=== PATIENT | male | born 1950 | race Caucasian/White ===

== ENCOUNTER 2023-07-06 18:59 | Inpatient (IN) | payer MEDICARE, OTHER ==
[~2023-07-06] VITALS: Ht 170.2 cm; Wt 79.8 kg
[2023-07-06] MEDS ORDERED: LIDOCAINE 2% (GLYDO= UROJET) 10 ML JELLY MM ONE (19:18)
[2023-07-06 19:39] LABS: *BILIRUBIN,URIN NEGATIVE (NEGATIVE); *CLARITY,URINE CLEAR (CLEAR); *COLOR,URINE YELLOW (YELLOW); *KETONES,URINE NEGATIVE (NEGATIVE); *PROTEIN,URINE 1+ (NEGATIVE); *UROBILINOGEN,URINE 0.2 E.U./dl (NORMAL); LEUKOCYTE ESTERASE ,URINE 2+ (NEGATIVE); NITRITE, URINE NEGATIVE (NEGATIVE); PH,URINE 5.5 (5.0-8.0); UGLUCOSE NEGATIVE (NEGATIVE)
[2023-07-06 19:40] LABS: *BLOOD, URINE NEGATIVE (NEGATIVE); RBC,URINE 0-3 /HPF (0-3)
[2023-07-06] MEDS: IV NORMAL SALINE 1000 ML BAG IV ONE (19:52)
[2023-07-06] MEDS: LIDOCAINE 2% (GLYDO= UROJET) 10 ML JELLY MM ONE (19:53)
[2023-07-06] MEDS ORDERED: PANT40TA49 PO (19:58)
[2023-07-06] MEDS ORDERED: SITA50TA PO (19:58)
[2023-07-06] MEDS ORDERED: SUCR1TAB PO (19:58)
[2023-07-06] MEDS ORDERED: ATOR10TA PO (19:58)
[2023-07-06] MEDS ORDERED: HYDR-894 PO (19:58)
[2023-07-06] MEDS ORDERED: FURO40TA5 PO (19:58)
[2023-07-06] MEDS ORDERED: ESCI5TAB PO (19:58)
[2023-07-06 20:11] LABS: BASOPHILS # (AUTO) 0.1 K/UL (0.0-0.2); CALCIUM 8.6 mg/dL (8.5-10.1); CARBON DIOXIDE 25 mmol/L (21-32); CHLORIDE 112 mmol/L (98-107); CREATININE 1.8 mg/dL (0.6-1.3); DIFFERENTIAL COMMENT 1; EOSINOPHILS # (AUTO) 0.1 K/uL (0.0-0.7); EOSINOPHILS % (AUTO) 0.4 % (0.0-7.0); GLUCOSE 143 mg/dL (74-106); HEMATOCRIT 28.2 % (36.7-47.1); LYMPHOCYTES # (AUTO) 1.2 K/uL (0.8-4.8); LYMPHOCYTES % (AUTO) 9.3 % (20.5-51.5); MEAN CORPUSCULAR HGB CONC 32 g/dL (32.5-36.3); MEAN CORPUSCULAR VOLUME 84.3 fL (73.0-96.2); MONOCYTES # (AUTO) 0.4 K/uL (0.1-1.30); MONOCYTES % (AUTO) 3.3 % (0.0-11.0); NEUTROPHILS # (AUTO) 11.3 K/uL (1.8-8.9); PLATELET COUNT (AUTO) 371 K/uL (152-348); POTASSIUM 3.6 mmol/L (3.5-5.1); RED BLOOD CELL COUNT(AUTO) 3.34 MIL/uL (4.06-5.63); RED CELL DISTRIBUTION WIDTH 17.7 % (12.1-16.2); SODIUM SERUM 146 mmol/L (136-145); UREA NITROGEN, BLOOD 31 mg/dL (7-18); WHITE BLOOD COUNT (AUTO) 13.2 K/uL (3.6-10.2)
[2023-07-06 20:12] LABS: AMMONIA < 10 umol/L (11-32)
[2023-07-06 20:16] LABS: ETHANOL < 3 MG/DL (0-10)
[2023-07-06 20:18] LABS: ALANINE AMINOTRANSFERASE 25 U/L (16-63); ALKALINE PHOSPHATASE 106 U/L (50-136); ASPARTATE AMINOTRANSFERASE 22 U/L (15-37); BILIRUBIN,DIRECT 0.1 mg/dL (0.0-0.2); BILIRUBIN,TOTAL 0.4 mg/dL (0.2-1.0); LIPASE 25 U/L (16-77); TOTAL PROTEIN, SERUM 6.6 g/dL (6.4-8.2)
[2023-07-06 20:19] LABS: ALBUMIN 1.5 g/dL (3.4-5.0)
[2023-07-06 20:20] LABS: ACETAMINOPHEN < 2.0 ug/mL (10-30)
[2023-07-06 20:36] LABS: THYROID STIMULATING HORMONE 16.898 mIU/mL (0.358-3.740)
[2023-07-06] MEDS ORDERED: ENOXAPARIN SODIUM 80 MG/0.8 ML DISP.SYRIN SQ ONE (21:05)
[2023-07-06] MEDS ORDERED: CEFTRIAXONE /D5W 50ML IVPB **ER PYXIS IV ONE (21:05)
[2023-07-06] MEDS ORDERED: levoFLOXacin 750MG/D5W 150 ML IV ONE (21:05)
[2023-07-06] MEDS ORDERED: ASPIRIN 81 MG TAB.CHEW ONE (21:05)
[2023-07-06] MEDS: ASPIRIN 81 MG TAB.CHEW PO ONE (21:18)
[2023-07-06] MEDS: CEFTRIAXONE 1 G in IV DEXTROSE 5% 50 ML IV ONE (21:18)
[2023-07-06] MEDS: ENOXAPARIN SODIUM 80 MG/0.8 ML DISP.SYRIN SQ ONE (21:19)
[2023-07-06] MEDS ORDERED: NITROGLYCERIN OINT 1 GM PACKET TP ONE (21:20)
[2023-07-06] MEDS: NITROGLYCERIN OINT 1 GM PACKET TP ONE (21:22)
[2023-07-06] MEDS: levoFLOXacin 750 MG/D5W 150 ML PIGGYBACK IV ONE (21:40)
[2023-07-06] MEDS ORDERED: METOPROLOL TARTRATE 5 MG/5 ML VIAL IVP ONE (21:42)
[2023-07-06] MEDS: METOPROLOL TARTRATE 5 MG/5 ML VIAL IVP ONE (22:07)
[2023-07-06] MEDS ORDERED: HYDROMORPHONE 1 MG/1 ML DISP.SYRIN ONE (23:50)
[2023-07-06] MEDS: HYDROMORPHONE 1 MG/1 ML DISP.SYRIN IV ONE (23:55)
[2023-07-07] MEDS ORDERED: MAGNESIUM HYDROXIDE 30 ML LIQUID UDC PO PRN (03:45)
[2023-07-07 05:58] LABS: BASOPHILS % (AUTO) 0.3 % (0.0-2.0); EOSINOPHILS % (AUTO) 0.3 % (0.0-7.0); HEMATOCRIT 25.1 % (36.7-47.1); HEMOGLOBIN 8.6 g/dL (12.5-16.3); LYMPHOCYTES # (AUTO) 1.3 K/uL (0.8-4.8); MEAN CORPUSCULAR HEMOGLOBIN 28.7 uug (23.8-33.4); MEAN CORPUSCULAR HGB CONC 34 g/dL (32.5-36.3); MEAN CORPUSCULAR VOLUME 84.2 fL (73.0-96.2); MONOCYTES # (AUTO) 0.5 K/uL (0.1-1.30); MONOCYTES % (AUTO) 4.4 % (0.0-11.0); NEUTROPHILS # (AUTO) 9.6 K/uL (1.8-8.9); PLATELET COUNT (AUTO) 276 K/uL (152-348); RED BLOOD CELL COUNT(AUTO) 2.98 MIL/uL (4.06-5.63); RED CELL DISTRIBUTION WIDTH 17.7 % (12.1-16.2); WHITE BLOOD COUNT (AUTO) 11.5 K/uL (3.6-10.2)
[2023-07-07] MEDS: SUCRALFATE 1 G TABLET PO SCH (06:00)
[2023-07-07 06:35] LABS: DIFFERENTIAL COMMENT 1
[2023-07-07 06:38] LABS: THYROID STIMULATING HORMONE 14.967 mIU/mL (0.358-3.740)
[2023-07-07 06:45] LABS: ALANINE AMINOTRANSFERASE 12 U/L (16-63); ALKALINE PHOSPHATASE 85 U/L (50-136); ASPARTATE AMINOTRANSFERASE 19 U/L (15-37); BILIRUBIN,TOTAL 0.3 mg/dL (0.2-1.0); CALCIUM 8.1 mg/dL (8.5-10.1); CARBON DIOXIDE 26 mmol/L (21-32); CHLORIDE 114 mmol/L (98-107); CHOLESTEROL 126 mg/dL (<200); CREATININE 1.7 mg/dL (0.6-1.3); GLUCOSE 123 mg/dL (74-106); HDL CHOLESTEROL 45 mg/dL (40-60); MAGNESIUM 1.7 mg/dL (1.8-2.4); PHOSPHOROUS 2.6 mg/dL (2.5-4.9); POTASSIUM 3.3 mmol/L (3.5-5.1); SODIUM SERUM 146 mmol/L (136-145); TOTAL PROTEIN, SERUM 5.4 g/dL (6.4-8.2); TRIGLYCERIDES 81 MG/DL (30-150); UREA NITROGEN, BLOOD 29 mg/dL (7-18)
[2023-07-07 06:46] LABS: ALBUMIN 1.2 g/dL (3.4-5.0)
[2023-07-07 06:48] LABS: IRON, SERUM 15 ug/dL (50-175)
[2023-07-07] MEDS ORDERED: HYDROMORPHONE 1 MG/1 ML DISP.SYRIN ONE (06:54)
[2023-07-07] MEDS: HYDROMORPHONE 1 MG/1 ML DISP.SYRIN IV STA (06:59)
[2023-07-07] MEDS: ALBUMIN HUMAN 25% 100 ML IV SCH (07:44)
[2023-07-07 07:48] LABS: NT-PRO BNP > 70000 pg/mL (0-125)
[2023-07-07] MEDS ORDERED: ALBUMIN HUMAN 25% 100 ML ONE (07:56)
[2023-07-07] MEDS ORDERED: FUROSEMIDE 40 MG/4 ML VIAL ONE (08:30)
[2023-07-07] MEDS ORDERED: PANTOPRAZOLE SODIUM 40 MG VIAL ONE (08:30)
[2023-07-07] MEDS ORDERED: ESCITALOPRAM OXALATE 10 MG TABLET ONE (08:30)
[2023-07-07] MEDS: FUROSEMIDE 40 MG/4 ML VIAL IV SCH (08:48)
[2023-07-07] MEDS: PANTOPRAZOLE SODIUM 40 MG VIAL IV SCH (08:49)
[2023-07-07] MEDS: ESCITALOPRAM OXALATE 10 MG TABLET PO SCH (08:49)
[2023-07-07] MEDS: VANCOMYCIN IV 1,250 MG in IV DEXTROSE 5% 250 ML IV SCH (08:55)
[2023-07-07] MEDS ORDERED: hydrALAZINE HCL 25 MG TABLET PO SCH (09:00)
[2023-07-07] MEDS ORDERED: POTASSIUM CHLORIDE 10 MEQ TAB.PRT.SR ONE (11:37)
[2023-07-07] MEDS ORDERED: MAGNESIUM OXIDE 400 MG TABLET ONE (11:37)
[2023-07-07] MEDS: MAGNESIUM OXIDE 400 MG TABLET PO ONE (11:40)
[2023-07-07] MEDS: POTASSIUM CHLORIDE 10 MEQ TAB.PRT.SR PO ONE (11:40)
[2023-07-07 13:00] VITALS: BP 126/79; TEMP 97.8; O2SAT 98
[2023-07-07 14:00] VITALS: BP 124/69; O2SAT 100
[2023-07-07] MEDS: ACETAMINOPHEN 325 MG TABLET PO PRN (14:17)
[2023-07-07] MEDS: MORPHINE SULFATE 2 MG/1 ML DISP.SYRIN IV PRN (17:05)
[2023-07-07 17:47] VITALS: O2SAT 98
[2023-07-07 18:00] VITALS: BP 124/69; O2SAT 100
[2023-07-07 19:30] VITALS: BP 130/87; TEMP 99.8; O2SAT 96
[2023-07-07] MEDS: ATORVASTATIN 20 MG TABLET PO SCH (21:18)
[2023-07-07 21:29] VITALS: O2SAT 98
[2023-07-08 00:05] VITALS: BP 131/85; TEMP 100.2; O2SAT 94
[2023-07-08] MEDS ORDERED: CEFTRIAXONE /D5W 50ML IVPB **ER PYXIS IV ONE (00:11)
[2023-07-08] MEDS: CEFTRIAXONE 1 G in IV DEXTROSE 5% 50 ML IV SCH (00:17)
[2023-07-08] MEDS: ZOLPIDEM 5 MG TABLET PO PRN (01:24)
[2023-07-08 04:00] VITALS: BP 128/73; TEMP 98.9; O2SAT 91
[2023-07-08] MEDS: LEVOTHYROXINE SODIUM 25 MCG TABLET PO SCH (06:20)
[2023-07-08 08:02] LABS: CALCIUM 8.6 mg/dL (8.5-10.1); CARBON DIOXIDE 24 mmol/L (21-32); CHLORIDE 109 mmol/L (98-107); CREATININE 1.8 mg/dL (0.6-1.3); GLUCOSE 118 mg/dL (74-106); LACTATE DEHYDROGENASE 323 U/L (85-227); MAGNESIUM 1.6 mg/dL (1.8-2.4); POTASSIUM 3.3 mmol/L (3.5-5.1); SODIUM SERUM 144 mmol/L (136-145); UREA NITROGEN, BLOOD 26 mg/dL (7-18)
[2023-07-08 08:04] LABS: BASOPHILS % (AUTO) 0.2 % (0.0-2.0); DIFFERENTIAL COMMENT 0; EOSINOPHILS % (AUTO) 0.1 % (0.0-7.0); HEMATOCRIT 22.4 % (36.7-47.1); LYMPHOCYTES # (AUTO) 1.2 K/uL (0.8-4.8); LYMPHOCYTES % (AUTO) 9.5 % (20.5-51.5); MEAN CORPUSCULAR HEMOGLOBIN 27.3 uug (23.8-33.4); MEAN CORPUSCULAR HGB CONC 33 g/dL (32.5-36.3); MEAN CORPUSCULAR VOLUME 82.9 fL (73.0-96.2); MONOCYTES # (AUTO) 0.5 K/uL (0.1-1.30); MONOCYTES % (AUTO) 3.8 % (0.0-11.0); NEUTROPHILS # (AUTO) 11.3 K/uL (1.8-8.9); NEUTROPHILS % (AUTO) 86.4 % (38.5-71.5); PLATELET COUNT (AUTO) 263 K/uL (152-348); RED CELL DISTRIBUTION WIDTH 17.2 % (12.1-16.2); WHITE BLOOD COUNT (AUTO) 13.1 K/uL (3.6-10.2)
[2023-07-08 08:08] LABS: HEMOGLOBIN 7.4 g/dL (12.5-16.3)
[2023-07-08 08:19] LABS: ABG BASE EXCESS -2.6 mmol/L (-2.0-2.0); ABG HCO3 21.1 mmol/L (22.0-26.0); ABG PCO2 32.1 mmHg (35.0-48.0); ABG PH 7.436 (7.340-7.440); ABG PO2 61.7 mmHg (75.0-100.0); ABG SITE LEFT RADIAL; ABG TOTAL HEMOGLOBIN 8.3 G/dL (14.0-18.0); AaDO2 92.7 mmHg; COHb 0.3 % (0.0-3.9); MetHb 0.2 % (0.0-1.5); O2Hb 91.7 % (94.0-97.0)
[2023-07-08] MEDS: MAGNESIUM SULFATE/D5W 100 ML IV SCH (09:04)
[2023-07-08] MEDS: POTASSIUM CHLORIDE 50 ML IV SCH (09:04)
[2023-07-08 10:35] LABS: HIV-1 p24 ANTIGEN REACTIVE (NONREACTIVE); HIV-1/2 ANTIBODY NON REACTIVE (NONREACTIVE)
[2023-07-08] MEDS: MEDIHONEY= THERAHONEY 1.5 OZ TUBE TOP SCH (10:45)
[2023-07-08] MEDS: SODIUM HYPOCHLORITE 0.125% (QUARTER STRENGTH) 473 ML BOTTLE TP SCH (10:45)
[2023-07-08 11:45] VITALS: BP 145/89; TEMP 98.2; O2SAT 93
[2023-07-08 14:32] LABS: HEMATOCRIT 22.4 % (36.7-47.1)
[2023-07-08 14:37] LABS: HEMOGLOBIN 7.2 g/dL (12.5-16.3)
[2023-07-08 16:00] VITALS: BP 104/67; TEMP 98.3; O2SAT 83; O2SAT 85
[2023-07-08 16:24] VITALS: O2SAT 90
[2023-07-08 16:36] LABS: ABG BASE EXCESS -7.2 mmol/L (-2.0-2.0); ABG PCO2 56.5 mmHg (35.0-48.0); ABG PH 7.189 (7.340-7.440); ABG PO2 73.6 mmHg (75.0-100.0); ABG SITE RIGHT RADIAL; ABG TOTAL HEMOGLOBIN 9.7 G/dL (14.0-18.0); AaDO2 90.9 mmHg; COHb 0.3 % (0.0-3.9); MetHb 0.1 % (0.0-1.5); O2Hb 90.5 % (94.0-97.0)
[2023-07-08] MEDS ORDERED: SUCCINYLCHOLINE CHLORIDE 200 MG/10 ML VIAL ONE (18:00)
[2023-07-08] MEDS: ETOMIDATE 20 MG/10 ML VIAL IV ONE (18:05)
[2023-07-08] MEDS: SUCCINYLCHOLINE CHLORIDE 200 MG/10 ML VIAL IV ONE (18:06)
[2023-07-08] MEDS ORDERED: PROPOFOL 100 ML ONE (19:40)
[2023-07-08] MEDS: PROPOFOL 100 ML IV PRN (19:59)
[2023-07-08] MEDS ORDERED: FUROSEMIDE 40 MG/4 ML VIAL ONE (20:50)
[2023-07-08] MEDS ORDERED: PANTOPRAZOLE SODIUM 40 MG VIAL ONE (20:50)
[2023-07-08] MEDS ORDERED: ATORVASTATIN 20 MG TABLET ONE (20:51)
[2023-07-08 21:51] LABS: ABG BASE EXCESS -2.8 mmol/L (-2.0-2.0); ABG HCO3 21.7 mmol/L (22.0-26.0); ABG PCO2 36.2 mmHg (35.0-48.0); ABG PH 7.396 (7.340-7.440); ABG PO2 137.2 mmHg (75.0-100.0); ABG SITE LEFT RADIAL; ABG TOTAL HEMOGLOBIN 7.1 G/dL (14.0-18.0); AaDO2 98.7 mmHg; COHb 0.3 % (0.0-3.9); MetHb 0.5 % (0.0-1.5); VT, ABG 500 mL
[2023-07-09 01:59] LABS: HEMATOCRIT 24.3 % (36.7-47.1); HEMOGLOBIN 7.7 g/dL (12.5-16.3)
[2023-07-09] MEDS ORDERED: PROPOFOL 100 ML ONE ×3 (05:08→19:48)
[2023-07-09 05:15] LABS: BASOPHILS % (AUTO) 0.1 % (0.0-2.0); EOSINOPHILS % (AUTO) 0.1 % (0.0-7.0); HEMATOCRIT 23.1 % (36.7-47.1); HEMOGLOBIN 7.5 g/dL (12.5-16.3); LYMPHOCYTES # (AUTO) 1.2 K/uL (0.8-4.8); LYMPHOCYTES % (AUTO) 6.8 % (20.5-51.5); MEAN CORPUSCULAR HGB CONC 33 g/dL (32.5-36.3); MONOCYTES # (AUTO) 0.4 K/uL (0.1-1.30); MONOCYTES % (AUTO) 2.3 % (0.0-11.0); NEUTROPHILS # (AUTO) 15.6 K/uL (1.8-8.9); NEUTROPHILS % (AUTO) 90.7 % (38.5-71.5); PLATELET COUNT (AUTO) 240 K/uL (152-348); RED BLOOD CELL COUNT(AUTO) 2.78 MIL/uL (4.06-5.63); RED CELL DISTRIBUTION WIDTH 17.3 % (12.1-16.2); WHITE BLOOD COUNT (AUTO) 17.2 K/uL (3.6-10.2)
[2023-07-09 05:30] LABS: CALCIUM 7.9 mg/dL (8.5-10.1); CARBON DIOXIDE 26 mmol/L (21-32); CHLORIDE 111 mmol/L (98-107); GLUCOSE 107 mg/dL (74-106); POTASSIUM 3.3 mmol/L (3.5-5.1); SODIUM SERUM 145 mmol/L (136-145); UREA NITROGEN, BLOOD 31 mg/dL (7-18)
[2023-07-09 05:32] LABS: PHOSPHOROUS 3.6 mg/dL (2.5-4.9)
[2023-07-09 05:40] LABS: DIFFERENTIAL COMMENT 1
[2023-07-09] MEDS ORDERED: SUCRALFATE 1 G/10 ML LIQUID UDC ONE (06:08)
[2023-07-09] MEDS ORDERED: LEVOTHYROXINE SODIUM 25 MCG TABLET ONE (07:51)
[2023-07-09] MEDS ORDERED: ESCITALOPRAM OXALATE 10 MG TABLET ONE (09:26)
[2023-07-09] MEDS ORDERED: PANTOPRAZOLE SODIUM 40 MG VIAL ONE ×2 (09:26→23:00)
[2023-07-09] MEDS ORDERED: FUROSEMIDE 40 MG/4 ML VIAL ONE ×2 (09:26→23:00)
[2023-07-09] MEDS: MEROPENEM 1 G in IV NORMAL SALINE 100 ML IV SCH (10:15)
[2023-07-09 14:29] LABS: HEMATOCRIT 21.6 % (36.7-47.1)
[2023-07-09] MEDS ORDERED: LIDOCAINE HCL 1% 20 ML VIAL ONE (14:52)
[2023-07-09] MEDS ORDERED: HEPARIN/NS 500 ML ONE (14:53)
[2023-07-09] MEDS ORDERED: IOHEXOL-240 MG , 50 ML VIAL IV ONE (14:56)
[2023-07-09] MEDS: SODIUM HYPOCHLORITE 0.125% (QUARTER STRENGTH) 473 ML BOTTLE TP SCH (15:15)
[2023-07-09] MEDS ORDERED: POTASSIUM CHLORIDE 50 ML ONE (16:10)
[2023-07-09] MEDS: POTASSIUM CHLORIDE 50 ML IV SCH (16:18)
[2023-07-09] MEDS ORDERED: MORPHINE SULFATE 2 MG/1 ML DISP.SYRIN ONE (16:19)
[2023-07-09 20:00] VITALS: BP 98/62; TEMP 98.3
[2023-07-09 21:00] VITALS: BP 112/64
[2023-07-09 22:00] VITALS: BP 106/59
[2023-07-09 23:00] VITALS: BP 103/58
[2023-07-09] MEDS ORDERED: ATORVASTATIN 20 MG TABLET ONE (23:00)
[2023-07-10] VITALS (25 sets, daily range): BP systolic 103–128; BP diastolic 55–73; TEMP 97.1–98.3; O2SAT 96–100
[2023-07-10 02:11] LABS: HEMATOCRIT 24.1 % (36.7-47.1)
[2023-07-10] MEDS ORDERED: PROPOFOL 100 ML ONE ×2 (04:04→13:02)
[2023-07-10 05:26] LABS: BASOPHILS # (AUTO) 0.1 K/UL (0.0-0.2); BASOPHILS % (AUTO) 0.5 % (0.0-2.0); EOSINOPHILS # (AUTO) 0.1 K/uL (0.0-0.7); EOSINOPHILS % (AUTO) 0.7 % (0.0-7.0); HEMATOCRIT 24.8 % (36.7-47.1); HEMOGLOBIN 8.3 g/dL (12.5-16.3); LYMPHOCYTES % (AUTO) 8.8 % (20.5-51.5); MEAN CORPUSCULAR HEMOGLOBIN 27.6 uug (23.8-33.4); MEAN CORPUSCULAR HGB CONC 33 g/dL (32.5-36.3); MEAN CORPUSCULAR VOLUME 82.6 fL (73.0-96.2); MONOCYTES # (AUTO) 0.4 K/uL (0.1-1.30); MONOCYTES % (AUTO) 3.7 % (0.0-11.0); NEUTROPHILS # (AUTO) 10.1 K/uL (1.8-8.9); NEUTROPHILS % (AUTO) 86.3 % (38.5-71.5); PLATELET COUNT (AUTO) 242 K/uL (152-348); RED CELL DISTRIBUTION WIDTH 17.4 % (12.1-16.2); WHITE BLOOD COUNT (AUTO) 11.7 K/uL (3.6-10.2)
[2023-07-10 06:04] LABS: CARBON DIOXIDE 25 mmol/L (21-32); CHLORIDE 110 mmol/L (98-107); GLUCOSE 79 mg/dL (74-106); SODIUM SERUM 145 mmol/L (136-145); UREA NITROGEN, BLOOD 31 mg/dL (7-18)
[2023-07-10 06:10] LABS: MAGNESIUM 1.9 mg/dL (1.8-2.4); PHOSPHOROUS 3.1 mg/dL (2.5-4.9)
[2023-07-10] MEDS ORDERED: SUCRALFATE 1 G/10 ML LIQUID UDC ONE (06:14)
[2023-07-10] MEDS ORDERED: LEVOTHYROXINE SODIUM 25 MCG TABLET ONE (06:15)
[2023-07-10 06:20] LABS: POTASSIUM 2.8 mmol/L (3.5-5.1)
[2023-07-10 06:24] LABS: DIFFERENTIAL COMMENT 1
[2023-07-10 06:25] LABS: CALCIUM 7.9 mg/dL (8.5-10.1)
[2023-07-10 06:35] LABS: ABG BASE EXCESS -0.6 mmol/L (-2.0-2.0); ABG HCO3 22.6 mmol/L (22.0-26.0); ABG PCO2 31.9 mmHg (35.0-48.0); ABG PH 7.469 (7.340-7.440); ABG PO2 151.2 mmHg (75.0-100.0); ABG SITE LEFT BRACHIAL; ABG TOTAL HEMOGLOBIN 9.1 G/dL (14.0-18.0); AaDO2 99.1 mmHg; COHb 0.3 % (0.0-3.9); MetHb 0.4 % (0.0-1.5); O2Hb 98.2 % (94.0-97.0); VT, ABG 500 mL
[2023-07-10] MEDS ORDERED: POTASSIUM CHLORIDE 50 ML IV SCH (08:30)
[2023-07-10] MEDS: POTASSIUM CHLORIDE 50 ML IV SCH ×2 (09:45→12:15)
[2023-07-10 11:28] LABS: CARBON DIOXIDE 25 mmol/L (21-32); CHLORIDE 110 mmol/L (98-107); CREATININE 1.9 mg/dL (0.6-1.3); GLUCOSE 78 mg/dL (74-106); MAGNESIUM 1.9 mg/dL (1.8-2.4); SODIUM SERUM 146 mmol/L (136-145); UREA NITROGEN, BLOOD 33 mg/dL (7-18); VANCOMYCIN,RANDOM 26.8 ug/mL (20.0-30.0)
[2023-07-10 11:37] LABS: BASOPHILS % (AUTO) 0.1 % (0.0-2.0); DIFFERENTIAL COMMENT 0; EOSINOPHILS # (AUTO) 0.1 K/uL (0.0-0.7); EOSINOPHILS % (AUTO) 0.6 % (0.0-7.0); HEMATOCRIT 26.6 % (36.7-47.1); HEMOGLOBIN 8.6 g/dL (12.5-16.3); LYMPHOCYTES # (AUTO) 1.1 K/uL (0.8-4.8); LYMPHOCYTES % (AUTO) 8.5 % (20.5-51.5); MEAN CORPUSCULAR HEMOGLOBIN 26.9 uug (23.8-33.4); MEAN CORPUSCULAR HGB CONC 32 g/dL (32.5-36.3); MEAN CORPUSCULAR VOLUME 83.4 fL (73.0-96.2); MONOCYTES # (AUTO) 0.4 K/uL (0.1-1.30); MONOCYTES % (AUTO) 2.8 % (0.0-11.0); NEUTROPHILS # (AUTO) 10.9 K/uL (1.8-8.9); PLATELET COUNT (AUTO) 261 K/uL (152-348); RED BLOOD CELL COUNT(AUTO) 3.19 MIL/uL (4.06-5.63); RED CELL DISTRIBUTION WIDTH 17.6 % (12.1-16.2); WHITE BLOOD COUNT (AUTO) 12.4 K/uL (3.6-10.2)
[2023-07-10 11:49] LABS: POTASSIUM 2.6 mmol/L (3.5-5.1)
[2023-07-10] MEDS ORDERED: VANCOMYCIN IV 1,250 MG in IV DEXTROSE 5% 250 ML IV SCH (12:00)
[2023-07-10] MEDS ORDERED: POTASSIUM CHLORIDE 400 ML ONE (12:33)
[2023-07-10] MEDS: IV NS 1000 ML 1,000 ML IV SCH (12:50)
[2023-07-10] MEDS: MAGNESIUM SULFATE/D5W 100 ML IV SCH (12:51)
[2023-07-10] MEDS ORDERED: MAGNESIUM SULFATE/D5W 100 ML ONE (12:51)
[2023-07-10] MEDS ORDERED: FUROSEMIDE 40 MG/4 ML VIAL ONE (13:33)
[2023-07-10] MEDS ORDERED: ESCITALOPRAM OXALATE 10 MG TABLET ONE (13:33)
[2023-07-10] MEDS ORDERED: PIPERACILLIN SODIUM/TAZOBACTAM 3.375 G in IV DEXTROSE 5% 50 ML IV SCH (14:30)
[2023-07-10] MEDS: PIPERACILLIN SODIUM/TAZOBACTAM 3.375 G in IV DEXTROSE 5% 100 ML IV SCH (17:00)
[2023-07-11] VITALS (65 sets, daily range): BP systolic 81–155; BP diastolic 49–89; TEMP 97–98.3; O2SAT 95–100
[2023-07-11 02:14] LABS: HEMATOCRIT 24.4 % (36.7-47.1)
[2023-07-11 05:23] LABS: BASOPHILS % (AUTO) 0.3 % (0.0-2.0); EOSINOPHILS # (AUTO) 0.1 K/uL (0.0-0.7); EOSINOPHILS % (AUTO) 0.4 % (0.0-7.0); HEMATOCRIT 26.8 % (36.7-47.1); HEMOGLOBIN 8.9 g/dL (12.5-16.3); LYMPHOCYTES # (AUTO) 1.2 K/uL (0.8-4.8); LYMPHOCYTES % (AUTO) 9.6 % (20.5-51.5); MEAN CORPUSCULAR HEMOGLOBIN 27.4 uug (23.8-33.4); MEAN CORPUSCULAR HGB CONC 33 g/dL (32.5-36.3); MEAN CORPUSCULAR VOLUME 82.7 fL (73.0-96.2); MONOCYTES # (AUTO) 0.3 K/uL (0.1-1.30); MONOCYTES % (AUTO) 2.8 % (0.0-11.0); NEUTROPHILS # (AUTO) 10.5 K/uL (1.8-8.9); NEUTROPHILS % (AUTO) 86.9 % (38.5-71.5); PLATELET COUNT (AUTO) 272 K/uL (152-348); RED BLOOD CELL COUNT(AUTO) 3.24 MIL/uL (4.06-5.63); RED CELL DISTRIBUTION WIDTH 17.3 % (12.1-16.2); WHITE BLOOD COUNT (AUTO) 12.1 K/uL (3.6-10.2)
[2023-07-11 05:30] LABS: DIFFERENTIAL COMMENT 1
[2023-07-11 05:46] LABS: ABG BASE EXCESS -1.6 mmol/L (-2.0-2.0); ABG HCO3 22.8 mmol/L (22.0-26.0); ABG PH 7.407 (7.340-7.440); ABG PO2 78.3 mmHg (75.0-100.0); ABG SITE RIGHT RADIAL; ABG TOTAL HEMOGLOBIN 9.5 G/dL (14.0-18.0); AaDO2 95.7 mmHg; COHb 0.3 % (0.0-3.9); MetHb 0.2 % (0.0-1.5); O2Hb 95.2 % (94.0-97.0); VT, ABG 500 mL
[2023-07-11 05:48] LABS: ALANINE AMINOTRANSFERASE 10 U/L (16-63); ALKALINE PHOSPHATASE 92 U/L (50-136); ASPARTATE AMINOTRANSFERASE 24 U/L (15-37); BILIRUBIN,TOTAL 0.6 mg/dL (0.2-1.0); CARBON DIOXIDE 24 mmol/L (21-32); CHLORIDE 111 mmol/L (98-107); GLUCOSE 91 mg/dL (74-106); PHOSPHOROUS 3.5 mg/dL (2.5-4.9); POTASSIUM 3.3 mmol/L (3.5-5.1); SODIUM SERUM 146 mmol/L (136-145); TOTAL PROTEIN, SERUM 5.7 g/dL (6.4-8.2); UREA NITROGEN, BLOOD 31 mg/dL (7-18)
[2023-07-11 06:01] LABS: ALBUMIN 1.5 g/dL (3.4-5.0)
[2023-07-11] MEDS: IV NORMAL SALINE 500 ML IV ONE (08:59)
[2023-07-11] MEDS: POTASSIUM CHLORIDE 50 ML IV SCH ×2 (10:43→14:00)
[2023-07-11] MEDS: NOREPINEPHRINE BITARTRATE 8 MG in IV NORMAL SALINE 242 ML IV PRN (10:48)
[2023-07-11] MEDS: VITAL AF 1.2 1,000 ML LIQUID GT PRN (13:00)
[2023-07-11 14:11] LABS: CALCIUM 8.1 mg/dL (8.5-10.1)
[2023-07-11 14:34] LABS: HEMATOCRIT 34.4 % (36.7-47.1); HEMOGLOBIN 10.5 g/dL (12.5-16.3)
[2023-07-11 20:03] LABS: *OCCULT BLOOD STOOL NEGATIVE (NEGATIVE)
[2023-07-12] VITALS (25 sets, daily range): BP systolic 87–115; BP diastolic 43–64; TEMP 97–98.3; O2SAT 93–99
[2023-07-12 05:10] LABS: BASOPHILS # (AUTO) 0.1 K/UL (0.0-0.2); BASOPHILS % (AUTO) 0.6 % (0.0-2.0); EOSINOPHILS # (AUTO) 0.1 K/uL (0.0-0.7); EOSINOPHILS % (AUTO) 0.8 % (0.0-7.0); HEMATOCRIT 27.6 % (36.7-47.1); HEMOGLOBIN 9.2 g/dL (12.5-16.3); LYMPHOCYTES # (AUTO) 1.3 K/uL (0.8-4.8); LYMPHOCYTES % (AUTO) 10.3 % (20.5-51.5); MEAN CORPUSCULAR HEMOGLOBIN 27.5 uug (23.8-33.4); MEAN CORPUSCULAR HGB CONC 33 g/dL (32.5-36.3); MEAN CORPUSCULAR VOLUME 82.8 fL (73.0-96.2); MONOCYTES # (AUTO) 0.5 K/uL (0.1-1.30); MONOCYTES % (AUTO) 4.2 % (0.0-11.0); NEUTROPHILS # (AUTO) 10.5 K/uL (1.8-8.9); NEUTROPHILS % (AUTO) 84.1 % (38.5-71.5); PLATELET COUNT (AUTO) 266 K/uL (152-348); RED BLOOD CELL COUNT(AUTO) 3.33 MIL/uL (4.06-5.63); RED CELL DISTRIBUTION WIDTH 17.5 % (12.1-16.2); WHITE BLOOD COUNT (AUTO) 12.5 K/uL (3.6-10.2)
[2023-07-12 05:18] LABS: DIFFERENTIAL COMMENT 1
[2023-07-12 05:37] LABS: ABG BASE EXCESS -1.1 mmol/L (-2.0-2.0); ABG HCO3 23.2 mmol/L (22.0-26.0); ABG PCO2 36.8 mmHg (35.0-48.0); ABG PH 7.417 (7.340-7.440); ABG PO2 74.1 mmHg (75.0-100.0); ABG SITE LEFT RADIAL; AaDO2 95.2 mmHg; COHb 0.3 % (0.0-3.9); MetHb 0.3 % (0.0-1.5); O2Hb 94.5 % (94.0-97.0); VT, ABG 500 mL
[2023-07-12 05:38] LABS: CALCIUM 7.9 mg/dL (8.5-10.1); CARBON DIOXIDE 24 mmol/L (21-32); CHLORIDE 112 mmol/L (98-107); CREATININE 2.1 mg/dL (0.6-1.3); GLUCOSE 177 mg/dL (74-106); PHOSPHOROUS 3.9 mg/dL (2.5-4.9); POTASSIUM 3.2 mmol/L (3.5-5.1); SODIUM SERUM 149 mmol/L (136-145); UREA NITROGEN, BLOOD 35 mg/dL (7-18)
[2023-07-12] MEDS: POTASSIUM CHLORIDE 50 ML IV SCH (12:26)
[2023-07-12 14:18] LABS: HEMATOCRIT 30.3 % (36.7-47.1); HEMOGLOBIN 9.6 g/dL (12.5-16.3)
[2023-07-13] VITALS (58 sets, daily range): BP systolic 99–130; BP diastolic 44–67; TEMP 97.7–99.2; O2SAT 95–100
[2023-07-13 02:12] LABS: HEMOGLOBIN 8.1 g/dL (12.5-16.3)
[2023-07-13 05:12] LABS: BASOPHILS # (AUTO) 0.1 K/UL (0.0-0.2); BASOPHILS % (AUTO) 0.4 % (0.0-2.0); EOSINOPHILS # (AUTO) 0.2 K/uL (0.0-0.7); EOSINOPHILS % (AUTO) 1.7 % (0.0-7.0); HEMATOCRIT 25.6 % (36.7-47.1); HEMOGLOBIN 8.3 g/dL (12.5-16.3); LYMPHOCYTES # (AUTO) 1.4 K/uL (0.8-4.8); LYMPHOCYTES % (AUTO) 10.2 % (20.5-51.5); MEAN CORPUSCULAR HEMOGLOBIN 26.8 uug (23.8-33.4); MEAN CORPUSCULAR HGB CONC 32 g/dL (32.5-36.3); MEAN CORPUSCULAR VOLUME 82.8 fL (73.0-96.2); MONOCYTES # (AUTO) 0.7 K/uL (0.1-1.30); MONOCYTES % (AUTO) 4.9 % (0.0-11.0); NEUTROPHILS # (AUTO) 11.4 K/uL (1.8-8.9); NEUTROPHILS % (AUTO) 82.8 % (38.5-71.5); PLATELET COUNT (AUTO) 272 K/uL (152-348); RED CELL DISTRIBUTION WIDTH 17.1 % (12.1-16.2); WHITE BLOOD COUNT (AUTO) 13.7 K/uL (3.6-10.2)
[2023-07-13 05:28] LABS: DIFFERENTIAL COMMENT 1
[2023-07-13 05:36] LABS: CALCIUM 7.7 mg/dL (8.5-10.1); CARBON DIOXIDE 26 mmol/L (21-32); CHLORIDE 111 mmol/L (98-107); CREATININE 1.9 mg/dL (0.6-1.3); GLUCOSE 252 mg/dL (74-106); PHOSPHOROUS 3.3 mg/dL (2.5-4.9); POTASSIUM 3.2 mmol/L (3.5-5.1); SODIUM SERUM 146 mmol/L (136-145); UREA NITROGEN, BLOOD 38 mg/dL (7-18)
[2023-07-13 09:50] LABS: ABG BASE EXCESS -0.1 mmol/L (-2.0-2.0); ABG HCO3 23.9 mmol/L (22.0-26.0); ABG PCO2 36.1 mmHg (35.0-48.0); ABG PH 7.438 (7.340-7.440); ABG PO2 85.4 mmHg (75.0-100.0); ABG SITE LEFT RADIAL; ABG TOTAL HEMOGLOBIN 9.1 G/dL (14.0-18.0); AaDO2 96.8 mmHg; COHb 0.3 % (0.0-3.9); MetHb 0.2 % (0.0-1.5); O2Hb 96.4 % (94.0-97.0); VT, ABG 500 mL
[2023-07-13] MEDS ORDERED: POTASSIUM CHLORIDE 50 ML IV SCH (12:00)
[2023-07-13] MEDS: POTASSIUM CHLORIDE 20 MEQ POWDER PACKET GT ONE (12:51)
[2023-07-13] MEDS: POTASSIUM CHLORIDE 50 ML IV SCH (12:52)
[2023-07-13 14:17] LABS: HEMATOCRIT 25.3 % (36.7-47.1); HEMOGLOBIN 8.4 g/dL (12.5-16.3)
[2023-07-14] VITALS (75 sets, daily range): BP systolic 96–135; BP diastolic 49–89; TEMP 97.8–100; O2SAT 94–99
[2023-07-14 02:07] LABS: HEMATOCRIT 25.3 % (36.7-47.1); HEMOGLOBIN 8.3 g/dL (12.5-16.3)
[2023-07-14 05:26] LABS: BASOPHILS # (AUTO) 0.1 K/UL (0.0-0.2); BASOPHILS % (AUTO) 0.5 % (0.0-2.0); EOSINOPHILS # (AUTO) 0.2 K/uL (0.0-0.7); EOSINOPHILS % (AUTO) 0.9 % (0.0-7.0); HEMATOCRIT 28.5 % (36.7-47.1); HEMOGLOBIN 9.3 g/dL (12.5-16.3); LYMPHOCYTES # (AUTO) 2.6 K/uL (0.8-4.8); LYMPHOCYTES % (AUTO) 15.5 % (20.5-51.5); MEAN CORPUSCULAR HEMOGLOBIN 26.9 uug (23.8-33.4); MEAN CORPUSCULAR HGB CONC 33 g/dL (32.5-36.3); MEAN CORPUSCULAR VOLUME 82.7 fL (73.0-96.2); MONOCYTES # (AUTO) 0.8 K/uL (0.1-1.30); NEUTROPHILS # (AUTO) 13.3 K/uL (1.8-8.9); NEUTROPHILS % (AUTO) 78.1 % (38.5-71.5); PLATELET COUNT (AUTO) 341 K/uL (152-348); RED BLOOD CELL COUNT(AUTO) 3.44 MIL/uL (4.06-5.63); RED CELL DISTRIBUTION WIDTH 17.9 % (12.1-16.2)
[2023-07-14 05:45] LABS: CALCIUM 8.1 mg/dL (8.5-10.1); CARBON DIOXIDE 25 mmol/L (21-32); CHLORIDE 112 mmol/L (98-107); GLUCOSE 237 mg/dL (74-106); POTASSIUM 3.2 mmol/L (3.5-5.1); SODIUM SERUM 148 mmol/L (136-145); UREA NITROGEN, BLOOD 41 mg/dL (7-18)
[2023-07-14 05:48] LABS: MAGNESIUM 2.1 mg/dL (1.8-2.4); PHOSPHOROUS 3.2 mg/dL (2.5-4.9)
[2023-07-14 07:07] LABS: ABG BASE EXCESS -4.3 mmol/L (-2.0-2.0); ABG PCO2 33.4 mmHg (35.0-48.0); ABG PH 7.396 (7.340-7.440); ABG PO2 81.2 mmHg (75.0-100.0); ABG SITE LEFT BRACHIAL; ABG TOTAL HEMOGLOBIN 7.9 G/dL (14.0-18.0); AaDO2 96.1 mmHg; COHb 0.3 % (0.0-3.9); MetHb 0.3 % (0.0-1.5); O2Hb 96.1 % (94.0-97.0)
[2023-07-14 07:38] LABS: DIFFERENTIAL COMMENT 1
[2023-07-14] MEDS: POTASSIUM CHLORIDE 20 MEQ POWDER PACKET GT ONE (08:27)
[2023-07-14] MEDS: POTASSIUM CHLORIDE 50 ML IV SCH (08:29)
[2023-07-14] MEDS: METOPROLOL TARTRATE 25 MG TABLET PO SCH (08:55)
[2023-07-14] MEDS: ONDANSETRON 4 MG/2 ML VIAL IV PRN (09:31)
[2023-07-14] MEDS ORDERED: VANCOMYCIN FOR PO/GT/NG USE PO SCH (12:00)
[2023-07-14] MEDS ORDERED: POTASSIUM CHLORIDE 50 ML IV SCH (12:00)
[2023-07-14] MEDS: VANCOMYCIN FOR PO/GT/NG USE PO SCH (12:33)
[2023-07-14] MEDS: MEDIHONEY= THERAHONEY 1.5 OZ TUBE TOP SCH (14:07)
[2023-07-15] VITALS (64 sets, daily range): BP systolic 92–144; BP diastolic 49–77; TEMP 97.7–99.5; O2SAT 92–100
[2023-07-15 05:17] LABS: BASOPHILS # (AUTO) 0.1 K/UL (0.0-0.2); BASOPHILS % (AUTO) 0.8 % (0.0-2.0); EOSINOPHILS # (AUTO) 0.2 K/uL (0.0-0.7); EOSINOPHILS % (AUTO) 1.5 % (0.0-7.0); HEMATOCRIT 23.2 % (36.7-47.1); HEMOGLOBIN 7.6 g/dL (12.5-16.3); LYMPHOCYTES # (AUTO) 1.8 K/uL (0.8-4.8); LYMPHOCYTES % (AUTO) 13.4 % (20.5-51.5); MEAN CORPUSCULAR HEMOGLOBIN 27.6 uug (23.8-33.4); MEAN CORPUSCULAR HGB CONC 33 g/dL (32.5-36.3); MEAN CORPUSCULAR VOLUME 84.7 fL (73.0-96.2); MONOCYTES # (AUTO) 0.6 K/uL (0.1-1.30); MONOCYTES % (AUTO) 4.8 % (0.0-11.0); NEUTROPHILS # (AUTO) 10.7 K/uL (1.8-8.9); NEUTROPHILS % (AUTO) 79.5 % (38.5-71.5); PLATELET COUNT (AUTO) 286 K/uL (152-348); RED BLOOD CELL COUNT(AUTO) 2.74 MIL/uL (4.06-5.63); RED CELL DISTRIBUTION WIDTH 18.3 % (12.1-16.2); WHITE BLOOD COUNT (AUTO) 13.5 K/uL (3.6-10.2)
[2023-07-15 05:35] LABS: CALCIUM 7.4 mg/dL (8.5-10.1); CARBON DIOXIDE 26 mmol/L (21-32); CHLORIDE 108 mmol/L (98-107); GLUCOSE 327 mg/dL (74-106); SODIUM SERUM 144 mmol/L (136-145); UREA NITROGEN, BLOOD 39 mg/dL (7-18)
[2023-07-15 05:37] LABS: PHOSPHOROUS 2.7 mg/dL (2.5-4.9)
[2023-07-15 05:48] LABS: DIFFERENTIAL COMMENT 1
[2023-07-15 06:23] LABS: ABG BASE EXCESS -1.4 mmol/L (-2.0-2.0); ABG HCO3 23.7 mmol/L (22.0-26.0); ABG PCO2 41.7 mmHg (35.0-48.0); ABG PH 7.373 (7.340-7.440); ABG PO2 77.8 mmHg (75.0-100.0); ABG SITE LEFT RADIAL; ABG TOTAL HEMOGLOBIN 10.8 G/dL (14.0-18.0); AaDO2 95.2 mmHg; COHb 0.1 % (0.0-3.9); CPAP,BG 8 cmH20; MetHb 0.1 % (0.0-1.5); O2Hb 95.6 % (94.0-97.0)
[2023-07-15] MEDS ORDERED: DC PROPOFOL ONCE EXTUBATED XX PRN (08:00)
[2023-07-15] MEDS: POTASSIUM CHLORIDE 50 ML IV SCH (09:37)
[2023-07-15] MEDS: FUROSEMIDE 40 MG/4 ML VIAL IV SCH (09:53)
[2023-07-15] MEDS: POTASSIUM CHLORIDE 20 MEQ POWDER PACKET GT ONE (10:24)
[2023-07-16] VITALS (28 sets, daily range): BP systolic 90–113; BP diastolic 49–77; TEMP 97.8; O2SAT 97–100
[2023-07-16] MEDS: LIDOCAINE 1%-EPI 1:200,000 MPF 30 ML VIAL IJ ONE (07:30)
[2023-07-16] MEDS: SILVER NITRATE APPLICATOR STICK EACH TP ONE (07:30)
[2023-07-16 16:19] LABS: BASOPHILS # (AUTO) 0.1 K/UL (0.0-0.2); DIFFERENTIAL COMMENT 0; EOSINOPHILS # (AUTO) 0.2 K/uL (0.0-0.7); EOSINOPHILS % (AUTO) 1.8 % (0.0-7.0); HEMATOCRIT 22.3 % (36.7-47.1); LYMPHOCYTES # (AUTO) 1.3 K/uL (0.8-4.8); LYMPHOCYTES % (AUTO) 11.3 % (20.5-51.5); MEAN CORPUSCULAR HEMOGLOBIN 27.5 uug (23.8-33.4); MEAN CORPUSCULAR HGB CONC 33 g/dL (32.5-36.3); MEAN CORPUSCULAR VOLUME 83.7 fL (73.0-96.2); MONOCYTES # (AUTO) 0.5 K/uL (0.1-1.30); NEUTROPHILS # (AUTO) 9.4 K/uL (1.8-8.9); NEUTROPHILS % (AUTO) 81.9 % (38.5-71.5); PLATELET COUNT (AUTO) 304 K/uL (152-348); RED BLOOD CELL COUNT(AUTO) 2.67 MIL/uL (4.06-5.63); RED CELL DISTRIBUTION WIDTH 17.8 % (12.1-16.2); WHITE BLOOD COUNT (AUTO) 11.5 K/uL (3.6-10.2)
[2023-07-16 16:20] LABS: CALCIUM 8.1 mg/dL (8.5-10.1); CARBON DIOXIDE 25 mmol/L (21-32); CHLORIDE 113 mmol/L (98-107); CREATININE 2.1 mg/dL (0.6-1.3); GLUCOSE 213 mg/dL (74-106); PHOSPHOROUS 3.2 mg/dL (2.5-4.9); POTASSIUM 3.6 mmol/L (3.5-5.1); SODIUM SERUM 148 mmol/L (136-145); UREA NITROGEN, BLOOD 43 mg/dL (7-18)
[2023-07-16 18:59] LABS: HEMOGLOBIN 7.3 g/dL (12.5-16.3)
[2023-07-16] MEDS: AMIODARONE HCL IV 150 MG in IV DEXTROSE 5% 100 ML IV ONE (19:28)
[2023-07-16] MEDS: AMIODARONE HCL IV 450 MG in IV DEXTROSE 5% 250 ML IV PRN (19:53)
[2023-07-17] VITALS (60 sets, daily range): BP systolic 103–133; BP diastolic 60–80; TEMP 97.4–98.4; O2SAT 95–100
[2023-07-17] MEDS: PIPERACILLIN SODIUM/TAZOBACTAM 3.375 G in IV DEXTROSE 5% 100 ML IV SCH ×2 (01:00→03:11)
[2023-07-17] MEDS: VANCOMYCIN FOR PO/GT/NG USE PO SCH (05:31)
[2023-07-17 05:46] LABS: BASOPHILS # (AUTO) 0.1 K/UL (0.0-0.2); BASOPHILS % (AUTO) 0.8 % (0.0-2.0); EOSINOPHILS # (AUTO) 0.1 K/uL (0.0-0.7); EOSINOPHILS % (AUTO) 1.6 % (0.0-7.0); HEMATOCRIT 25.6 % (36.7-47.1); HEMOGLOBIN 8.4 g/dL (12.5-16.3); LYMPHOCYTES # (AUTO) 1.1 K/uL (0.8-4.8); LYMPHOCYTES % (AUTO) 12.9 % (20.5-51.5); MEAN CORPUSCULAR HGB CONC 33 g/dL (32.5-36.3); MEAN CORPUSCULAR VOLUME 85.8 fL (73.0-96.2); MONOCYTES # (AUTO) 0.4 K/uL (0.1-1.30); MONOCYTES % (AUTO) 4.4 % (0.0-11.0); NEUTROPHILS # (AUTO) 6.6 K/uL (1.8-8.9); NEUTROPHILS % (AUTO) 80.3 % (38.5-71.5); PLATELET COUNT (AUTO) 316 K/uL (152-348); RED BLOOD CELL COUNT(AUTO) 2.99 MIL/uL (4.06-5.63); RED CELL DISTRIBUTION WIDTH 17.4 % (12.1-16.2); WHITE BLOOD COUNT (AUTO) 8.3 K/uL (3.6-10.2)
[2023-07-17 06:03] LABS: CARBON DIOXIDE 27 mmol/L (21-32); CHLORIDE 109 mmol/L (98-107); CREATININE 2.1 mg/dL (0.6-1.3); GLUCOSE 382 mg/dL (74-106); MAGNESIUM 1.8 mg/dL (1.8-2.4); PHOSPHOROUS 3.6 mg/dL (2.5-4.9); POTASSIUM 3.4 mmol/L (3.5-5.1); SODIUM SERUM 145 mmol/L (136-145); UREA NITROGEN, BLOOD 49 mg/dL (7-18)
[2023-07-17 08:42] LABS: DIFFERENTIAL COMMENT 1
[2023-07-17] MEDS: POTASSIUM CHLORIDE 50 ML IV SCH (08:45)
[2023-07-17] MEDS: METOLAZONE 2.5 MG TABLET PO ONE (08:47)
[2023-07-17] MEDS: ALBUMIN HUMAN 25% 100 ML IV SCH (08:50)
[2023-07-17] MEDS: AMIODARONE HCL 200 MG TABLET PO SCH (08:52)
[2023-07-17] MEDS: POTASSIUM CHLORIDE 20 MEQ POWDER PACKET GT ONE (10:51)
[2023-07-17] MEDS ORDERED: DEXTROSE 50% 50 ML DISP.SYRIN IV PRN (13:15)
[2023-07-17] MEDS: FUROSEMIDE 40 MG/4 ML VIAL IV SCH (13:51)
[2023-07-17] MEDS: BLOOD SUGAR DIAGNOSTIC 1 EACH STRIP VI SCH (17:23)
[2023-07-17] MEDS: INSULIN REGULAR, HUMAN 300 UNIT/3 ML VIAL SQ PRN (17:25)
[2023-07-17] MEDS: AMPICILLIN IV 2 G in IV NORMAL SALINE 100 ML IV SCH (21:57)
[2023-07-18] VITALS (36 sets, daily range): BP systolic 113–146; BP diastolic 64–88; TEMP 97.7–98.1; O2SAT 81–100
[2023-07-18] MEDS: IPRATROPIUM BROMIDE 0.5 MG/2.5 ML NEBU NEB PRN (03:56)
[2023-07-18] MEDS: ALBUTEROL SULFATE 1.25 MG/3 ML NEBU NEB PRN (03:56)
[2023-07-18 05:38] LABS: BASOPHILS # (AUTO) 0.1 K/UL (0.0-0.2); BASOPHILS % (AUTO) 0.7 % (0.0-2.0); EOSINOPHILS # (AUTO) 0.1 K/uL (0.0-0.7); EOSINOPHILS % (AUTO) 1.1 % (0.0-7.0); HEMATOCRIT 26.4 % (36.7-47.1); HEMOGLOBIN 8.8 g/dL (12.5-16.3); LYMPHOCYTES # (AUTO) 1.7 K/uL (0.8-4.8); LYMPHOCYTES % (AUTO) 17.6 % (20.5-51.5); MEAN CORPUSCULAR HEMOGLOBIN 27.8 uug (23.8-33.4); MEAN CORPUSCULAR HGB CONC 33 g/dL (32.5-36.3); MEAN CORPUSCULAR VOLUME 83.5 fL (73.0-96.2); MONOCYTES # (AUTO) 0.5 K/uL (0.1-1.30); MONOCYTES % (AUTO) 5.2 % (0.0-11.0); NEUTROPHILS # (AUTO) 7.4 K/uL (1.8-8.9); NEUTROPHILS % (AUTO) 75.4 % (38.5-71.5); PLATELET COUNT (AUTO) 359 K/uL (152-348); RED BLOOD CELL COUNT(AUTO) 3.16 MIL/uL (4.06-5.63); RED CELL DISTRIBUTION WIDTH 17.5 % (12.1-16.2); WHITE BLOOD COUNT (AUTO) 9.8 K/uL (3.6-10.2)
[2023-07-18 05:58] LABS: DIFFERENTIAL COMMENT 1
[2023-07-18 05:59] LABS: CARBON DIOXIDE 25 mmol/L (21-32); CHLORIDE 112 mmol/L (98-107); CREATININE 2.2 mg/dL (0.6-1.3); GLUCOSE 108 mg/dL (74-106); POTASSIUM 3.7 mmol/L (3.5-5.1); SODIUM SERUM 149 mmol/L (136-145); UREA NITROGEN, BLOOD 52 mg/dL (7-18)
[2023-07-18 06:05] LABS: ABG BASE EXCESS -1.3 mmol/L (-2.0-2.0); ABG HCO3 23.1 mmol/L (22.0-26.0); ABG PCO2 37.6 mmHg (35.0-48.0); ABG PH 7.407 (7.340-7.440); ABG PO2 57.9 mmHg (75.0-100.0); ABG SITE RIGHT BRACHIAL; ABG TOTAL HEMOGLOBIN 9.6 G/dL (14.0-18.0); AaDO2 90.4 mmHg; COHb 0.1 % (0.0-3.9); MetHb 0.3 % (0.0-1.5); O2Hb 90.1 % (94.0-97.0)
[2023-07-18 19:59] LABS: *BILIRUBIN,URIN NEGATIVE (NEGATIVE); *BLOOD, URINE 3+ (NEGATIVE); *CLARITY,URINE SLIGHTLY CLOUDY (CLEAR); *COLOR,URINE YELLOW (YELLOW); *KETONES,URINE NEGATIVE (NEGATIVE); *PROTEIN,URINE 1+ (NEGATIVE); *UROBILINOGEN,URINE 0.2 E.U./dl (NORMAL); LEUKOCYTE ESTERASE ,URINE TRACE (NEGATIVE); NITRITE, URINE NEGATIVE (NEGATIVE); UGLUCOSE NEGATIVE (NEGATIVE)
[2023-07-18 20:00] LABS: *CREATININE,URINE 21.4 mg/dL (30-125); *URINE TOTAL PROTEIN RANDOM 106.4 mg/dL (<150/24HR)
[2023-07-18 20:32] LABS: BACTERIA,URINE MODERATE /HPF (NONE SEEN); RBC,URINE 50-80 /HPF (0-3); SQUAMOUS EPITHELIAL CELL,UR MODERATE /HPF (NONE SEEN); YEAST,URINE MANY /HPF (NONE SEEN)
[2023-07-18] MEDS: FUROSEMIDE 40 MG/4 ML VIAL IV SCH (20:42)
[2023-07-19] VITALS (28 sets, daily range): BP systolic 113–138; BP diastolic 70–82; TEMP 97.4–98.7; O2SAT 91–99
[2023-07-19 05:19] LABS: BASOPHILS # (AUTO) 0.1 K/UL (0.0-0.2); EOSINOPHILS # (AUTO) 0.1 K/uL (0.0-0.7); EOSINOPHILS % (AUTO) 1.1 % (0.0-7.0); HEMATOCRIT 27.1 % (36.7-47.1); HEMOGLOBIN 8.7 g/dL (12.5-16.3); LYMPHOCYTES # (AUTO) 1.6 K/uL (0.8-4.8); LYMPHOCYTES % (AUTO) 15.9 % (20.5-51.5); MEAN CORPUSCULAR HEMOGLOBIN 27.5 uug (23.8-33.4); MEAN CORPUSCULAR HGB CONC 32 g/dL (32.5-36.3); MEAN CORPUSCULAR VOLUME 85.1 fL (73.0-96.2); MONOCYTES # (AUTO) 0.5 K/uL (0.1-1.30); MONOCYTES % (AUTO) 4.9 % (0.0-11.0); NEUTROPHILS # (AUTO) 7.9 K/uL (1.8-8.9); NEUTROPHILS % (AUTO) 77.1 % (38.5-71.5); PLATELET COUNT (AUTO) 385 K/uL (152-348); RED BLOOD CELL COUNT(AUTO) 3.18 MIL/uL (4.06-5.63); RED CELL DISTRIBUTION WIDTH 17.6 % (12.1-16.2); WHITE BLOOD COUNT (AUTO) 10.3 K/uL (3.6-10.2)
[2023-07-19 05:34] LABS: ABG BASE EXCESS -2.1 mmol/L (-2.0-2.0); ABG HCO3 22.7 mmol/L (22.0-26.0); ABG PCO2 38.8 mmHg (35.0-48.0); ABG PH 7.385 (7.340-7.440); ABG PO2 67.4 mmHg (75.0-100.0); ABG SITE LEFT RADIAL; ABG TOTAL HEMOGLOBIN 9.5 G/dL (14.0-18.0); AaDO2 93.3 mmHg; COHb 0.4 % (0.0-3.9); MetHb 0.2 % (0.0-1.5); O2Hb 93.3 % (94.0-97.0)
[2023-07-19 05:47] LABS: DIFFERENTIAL COMMENT 1
[2023-07-19 05:57] LABS: CALCIUM 9.4 mg/dL (8.5-10.1); CARBON DIOXIDE 24 mmol/L (21-32); CHLORIDE 115 mmol/L (98-107); CREATININE 2.6 mg/dL (0.6-1.3); GLUCOSE 112 mg/dL (74-106); POTASSIUM 3.3 mmol/L (3.5-5.1); SODIUM SERUM 153 mmol/L (136-145); UREA NITROGEN, BLOOD 60 mg/dL (7-18)
[2023-07-19 06:02] LABS: MAGNESIUM 2.1 mg/dL (1.8-2.4); PHOSPHOROUS 5.8 mg/dL (2.5-4.9)
[2023-07-19] MEDS: IV NORMAL SALINE 250 ML IV PRN (06:38)
[2023-07-19] MEDS: FUROSEMIDE 40 MG/4 ML VIAL IV SCH (08:10)
[2023-07-19] MEDS: IV D5W 1000ML 1,000 ML IV ONE (11:29)
[2023-07-19] MEDS: ARGININE/GLUTAMINE/CALCIUM BMB 1 EACH POWD.PACK PO SCH (11:52)
[2023-07-19] MEDS: POTASSIUM CHLORIDE 20 MEQ POWDER PACKET PO ONE (12:33)
[2023-07-20] VITALS (23 sets, daily range): BP systolic 113–147; BP diastolic 64–82; TEMP 97.6–98.4; O2SAT 90–100
[2023-07-20 05:16] LABS: BASOPHILS # (AUTO) 0.1 K/UL (0.0-0.2); BASOPHILS % (AUTO) 0.8 % (0.0-2.0); EOSINOPHILS # (AUTO) 0.2 K/uL (0.0-0.7); EOSINOPHILS % (AUTO) 1.6 % (0.0-7.0); HEMATOCRIT 25.1 % (36.7-47.1); HEMOGLOBIN 8.4 g/dL (12.5-16.3); LYMPHOCYTES # (AUTO) 1.7 K/uL (0.8-4.8); LYMPHOCYTES % (AUTO) 15.6 % (20.5-51.5); MEAN CORPUSCULAR HEMOGLOBIN 28.1 uug (23.8-33.4); MEAN CORPUSCULAR HGB CONC 33 g/dL (32.5-36.3); MONOCYTES # (AUTO) 0.5 K/uL (0.1-1.30); MONOCYTES % (AUTO) 4.7 % (0.0-11.0); NEUTROPHILS # (AUTO) 8.3 K/uL (1.8-8.9); NEUTROPHILS % (AUTO) 77.3 % (38.5-71.5); PLATELET COUNT (AUTO) 380 K/uL (152-348); RED BLOOD CELL COUNT(AUTO) 2.99 MIL/uL (4.06-5.63); RED CELL DISTRIBUTION WIDTH 17.9 % (12.1-16.2); WHITE BLOOD COUNT (AUTO) 10.7 K/uL (3.6-10.2)
[2023-07-20 05:19] LABS: DIFFERENTIAL COMMENT 1
[2023-07-20 05:32] LABS: CARBON DIOXIDE 26 mmol/L (21-32); CHLORIDE 115 mmol/L (98-107); CREATININE 2.9 mg/dL (0.6-1.3); GLUCOSE 110 mg/dL (74-106); POTASSIUM 3.3 mmol/L (3.5-5.1); SODIUM SERUM 153 mmol/L (136-145); UREA NITROGEN, BLOOD 65 mg/dL (7-18)
[2023-07-20] MEDS: AMIODARONE HCL 200 MG TABLET PO SCH (09:04)
[2023-07-20] MEDS: POTASSIUM CHLORIDE 20 MEQ POWDER PACKET GT ONE (09:04)
[2023-07-20] MEDS: IV D5W 1000ML 1,000 ML IV SCH (09:17)
[2023-07-21 04:05] VITALS: O2SAT 99
[2023-07-21 07:08] LABS: BASOPHILS # (AUTO) 0.1 K/UL (0.0-0.2); BASOPHILS % (AUTO) 0.6 % (0.0-2.0); EOSINOPHILS # (AUTO) 0.2 K/uL (0.0-0.7); HEMATOCRIT 29.3 % (36.7-47.1); HEMOGLOBIN 9.8 g/dL (12.5-16.3); LYMPHOCYTES # (AUTO) 1.8 K/uL (0.8-4.8); MEAN CORPUSCULAR HEMOGLOBIN 28.7 uug (23.8-33.4); MEAN CORPUSCULAR HGB CONC 34 g/dL (32.5-36.3); MEAN CORPUSCULAR VOLUME 85.5 fL (73.0-96.2); MONOCYTES # (AUTO) 0.6 K/uL (0.1-1.30); MONOCYTES % (AUTO) 5.1 % (0.0-11.0); NEUTROPHILS # (AUTO) 9.1 K/uL (1.8-8.9); NEUTROPHILS % (AUTO) 77.3 % (38.5-71.5); PLATELET COUNT (AUTO) 462 K/uL (152-348); RED BLOOD CELL COUNT(AUTO) 3.42 MIL/uL (4.06-5.63); RED CELL DISTRIBUTION WIDTH 18.4 % (12.1-16.2); WHITE BLOOD COUNT (AUTO) 11.8 K/uL (3.6-10.2)
[2023-07-21 07:26] LABS: DIFFERENTIAL COMMENT 1
[2023-07-21 08:00] VITALS: BP 104/49; TEMP 97.6; O2SAT 94
[2023-07-21 09:49] LABS: CALCIUM 8.8 mg/dL (8.5-10.1); CARBON DIOXIDE 21 mmol/L (21-32); CHLORIDE 109 mmol/L (98-107); CREATININE 3.3 mg/dL (0.6-1.3); GLUCOSE 142 mg/dL (74-106); PHOSPHOROUS 5.5 mg/dL (2.5-4.9); POTASSIUM 3.3 mmol/L (3.5-5.1); SODIUM SERUM 145 mmol/L (136-145); UREA NITROGEN, BLOOD 69 mg/dL (7-18)
[2023-07-21] MEDS: FUROSEMIDE 40 MG/4 ML VIAL IV SCH (09:51)
[2023-07-21 12:00] VITALS: BP 111/55; TEMP 97.8; O2SAT 93
[2023-07-21] MEDS ORDERED: SILVER NITRATE APPLICATOR STICK EACH TP PRN (13:29)
[2023-07-21] MEDS ORDERED: LIDOCAINE 1%-EPI 1:200,000 MPF 30 ML VIAL IJ PRN (13:30)
[2023-07-21 16:00] VITALS: BP 122/73; TEMP 97.4; O2SAT 92
[2023-07-21] MEDS: MORPHINE SULFATE 2 MG/1 ML DISP.SYRIN IV ONE (16:12)
[2023-07-21] MEDS: PANTOPRAZOLE ORAL SUSPENSION 40 MG SUSPDR.PKT GT SCH (17:31)
[2023-07-21 20:00] VITALS: BP 136/54; TEMP 98.2; O2SAT 98
[2023-07-21 21:58] VITALS: O2SAT 99
[2023-07-22 00:49] VITALS: BP 144/66; TEMP 98.2; O2SAT 98
[2023-07-22 06:32] VITALS: BP 109/79; TEMP 98.3; O2SAT 93
[2023-07-22 06:54] LABS: BASOPHILS % (AUTO) 0.5 % (0.0-2.0); EOSINOPHILS # (AUTO) 0.1 K/uL (0.0-0.7); EOSINOPHILS % (AUTO) 1.4 % (0.0-7.0); HEMATOCRIT 28.1 % (36.7-47.1); HEMOGLOBIN 9.4 g/dL (12.5-16.3); LYMPHOCYTES # (AUTO) 1.2 K/uL (0.8-4.8); LYMPHOCYTES % (AUTO) 13.4 % (20.5-51.5); MEAN CORPUSCULAR HEMOGLOBIN 28.2 uug (23.8-33.4); MEAN CORPUSCULAR HGB CONC 33 g/dL (32.5-36.3); MEAN CORPUSCULAR VOLUME 84.6 fL (73.0-96.2); MONOCYTES # (AUTO) 0.3 K/uL (0.1-1.30); NEUTROPHILS # (AUTO) 7.1 K/uL (1.8-8.9); NEUTROPHILS % (AUTO) 80.7 % (38.5-71.5); PLATELET COUNT (AUTO) 449 K/uL (152-348); RED BLOOD CELL COUNT(AUTO) 3.33 MIL/uL (4.06-5.63); RED CELL DISTRIBUTION WIDTH 18.5 % (12.1-16.2); WHITE BLOOD COUNT (AUTO) 8.8 K/uL (3.6-10.2)
[2023-07-22 06:55] LABS: CALCIUM 8.3 mg/dL (8.5-10.1); CARBON DIOXIDE 24 mmol/L (21-32); CHLORIDE 107 mmol/L (98-107); CREATININE 3.8 mg/dL (0.6-1.3); GLUCOSE 154 mg/dL (74-106); MAGNESIUM 1.9 mg/dL (1.8-2.4); PHOSPHOROUS 6.1 mg/dL (2.5-4.9); POTASSIUM 3.4 mmol/L (3.5-5.1); SODIUM SERUM 142 mmol/L (136-145); UREA NITROGEN, BLOOD 72 mg/dL (7-18)
[2023-07-22 07:05] LABS: DIFFERENTIAL COMMENT 1
[2023-07-22 08:00] VITALS: BP 130/75; TEMP 97.8; O2SAT 94
[2023-07-22] MEDS: POTASSIUM CHLORIDE 10 MEQ TAB.PRT.SR PO ONE (10:27)
[2023-07-22 12:03] VITALS: BP 110/63; TEMP 97.7; O2SAT 99
[2023-07-22 16:13] VITALS: BP 132/84; TEMP 97.5; O2SAT 98
[2023-07-22 20:10] VITALS: BP 120/65; TEMP 99; O2SAT 94
[2023-07-23] VITALS (7 sets, daily range): BP systolic 125–133; BP diastolic 61–86; TEMP 97.6–99; O2SAT 91–99
[2023-07-23 06:58] LABS: BASOPHILS # (AUTO) 0.1 K/UL (0.0-0.2); BASOPHILS % (AUTO) 0.7 % (0.0-2.0); EOSINOPHILS # (AUTO) 0.1 K/uL (0.0-0.7); HEMATOCRIT 26.3 % (36.7-47.1); HEMOGLOBIN 8.7 g/dL (12.5-16.3); LYMPHOCYTES # (AUTO) 1.3 K/uL (0.8-4.8); LYMPHOCYTES % (AUTO) 13.3 % (20.5-51.5); MEAN CORPUSCULAR HEMOGLOBIN 27.8 uug (23.8-33.4); MEAN CORPUSCULAR HGB CONC 33 g/dL (32.5-36.3); MEAN CORPUSCULAR VOLUME 84.2 fL (73.0-96.2); MONOCYTES # (AUTO) 0.5 K/uL (0.1-1.30); MONOCYTES % (AUTO) 4.6 % (0.0-11.0); NEUTROPHILS # (AUTO) 7.9 K/uL (1.8-8.9); NEUTROPHILS % (AUTO) 80.4 % (38.5-71.5); PLATELET COUNT (AUTO) 399 K/uL (152-348); RED BLOOD CELL COUNT(AUTO) 3.13 MIL/uL (4.06-5.63); RED CELL DISTRIBUTION WIDTH 18.5 % (12.1-16.2); WHITE BLOOD COUNT (AUTO) 9.8 K/uL (3.6-10.2)
[2023-07-23 07:06] LABS: DIFFERENTIAL COMMENT 1
[2023-07-23 07:11] LABS: CALCIUM 8.5 mg/dL (8.5-10.1); CARBON DIOXIDE 21 mmol/L (21-32); CHLORIDE 108 mmol/L (98-107); CREATININE 4.2 mg/dL (0.6-1.3); GLUCOSE 115 mg/dL (74-106); POTASSIUM 3.8 mmol/L (3.5-5.1); SODIUM SERUM 144 mmol/L (136-145); UREA NITROGEN, BLOOD 75 mg/dL (7-18)
[2023-07-23 09:52] LABS: PHOSPHOROUS 6.8 mg/dL (2.5-4.9)
[2023-07-23] MEDS: ALBUMIN HUMAN 25% 100 ML IV SCH (11:19)
[2023-07-23] MEDS: FUROSEMIDE 40 MG/4 ML VIAL IV SCH (11:20)
[2023-07-23] MEDS: MEDIHONEY= THERAHONEY 1.5 OZ TUBE TOP SCH (19:00)
[2023-07-24] VITALS (23 sets, daily range): BP systolic 102–133; BP diastolic 49–77; TEMP 97–98.1; O2SAT 98–100
[2023-07-24] MEDS ORDERED: NOREPINEPHRINE BITARTRATE 4 MG/4 ML VIAL IV ONE (00:36)
[2023-07-24 03:28] LABS: ABG BASE EXCESS -7.3 mmol/L (-2.0-2.0); ABG HCO3 17.8 mmol/L (22.0-26.0); ABG PCO2 34.2 mmHg (35.0-48.0); ABG PH 7.335 (7.340-7.440); ABG PO2 336.8 mmHg (75.0-100.0); ABG SITE LEFT BRACHIAL; ABG TOTAL HEMOGLOBIN 8.8 G/dL (14.0-18.0); AaDO2 99.7 mmHg; COHb 0.3 % (0.0-3.9); MetHb 0.6 % (0.0-1.5); O2Hb 98.5 % (94.0-97.0); VT, ABG 500 mL
[2023-07-24] MEDS ORDERED: CALCIUM CHLORIDE 1 GM/10 ML DISP.SYRIN IVP ONE (04:00)
[2023-07-24 06:00] LABS: BASOPHILS # (AUTO) 0.1 K/UL (0.0-0.2); BASOPHILS % (AUTO) 1.1 % (0.0-2.0); EOSINOPHILS # (AUTO) 0.1 K/uL (0.0-0.7); EOSINOPHILS % (AUTO) 1.1 % (0.0-7.0); HEMATOCRIT 26.5 % (36.7-47.1); HEMOGLOBIN 8.8 g/dL (12.5-16.3); LYMPHOCYTES # (AUTO) 0.7 K/uL (0.8-4.8); LYMPHOCYTES % (AUTO) 5.9 % (20.5-51.5); MEAN CORPUSCULAR HEMOGLOBIN 27.8 uug (23.8-33.4); MEAN CORPUSCULAR HGB CONC 33 g/dL (32.5-36.3); MEAN CORPUSCULAR VOLUME 84.3 fL (73.0-96.2); MONOCYTES # (AUTO) 0.2 K/uL (0.1-1.30); MONOCYTES % (AUTO) 2.1 % (0.0-11.0); NEUTROPHILS # (AUTO) 10.3 K/uL (1.8-8.9); NEUTROPHILS % (AUTO) 89.8 % (38.5-71.5); PLATELET COUNT (AUTO) 302 K/uL (152-348); RED BLOOD CELL COUNT(AUTO) 3.15 MIL/uL (4.06-5.63); RED CELL DISTRIBUTION WIDTH 18.6 % (12.1-16.2); WHITE BLOOD COUNT (AUTO) 11.5 K/uL (3.6-10.2)
[2023-07-24 06:17] LABS: DIFFERENTIAL COMMENT 1
[2023-07-24 06:42] LABS: CALCIUM 9.2 mg/dL (8.5-10.1); CARBON DIOXIDE 20 mmol/L (21-32); CHLORIDE 106 mmol/L (98-107); CREATININE 4.8 mg/dL (0.6-1.3); GLUCOSE 132 mg/dL (74-106); POTASSIUM 4.2 mmol/L (3.5-5.1); SODIUM SERUM 146 mmol/L (136-145)
[2023-07-24 06:49] LABS: UREA NITROGEN, BLOOD 82 mg/dL (7-18)
[2023-07-24] MEDS ORDERED: PROPOFOL 50 ML IV PRN (08:00)
[2023-07-24] MEDS ORDERED: PROPOFOL 100 ML IV PRN ×2 (08:15)
[2023-07-24] MEDS: PRECEDEX 400 MCG/100 ML BOTTLE 100 ML IV PRN (08:32)
[2023-07-24] MEDS ORDERED: ESCITALOPRAM OXALATE 10 MG TABLET PO SCH (09:00)
[2023-07-24] MEDS: VANCOMYCIN FOR PO/GT/NG USE PO SCH (14:23)
[2023-07-25] VITALS (24 sets, daily range): BP systolic 98–149; BP diastolic 53–78; TEMP 97.1–97.8; O2SAT 84–100
[2023-07-25 05:18] LABS: BASOPHILS # (AUTO) 0.1 K/UL (0.0-0.2); BASOPHILS % (AUTO) 0.8 % (0.0-2.0); EOSINOPHILS # (AUTO) 0.2 K/uL (0.0-0.7); HEMATOCRIT 24.2 % (36.7-47.1); HEMOGLOBIN 8.2 g/dL (12.5-16.3); LYMPHOCYTES # (AUTO) 1.4 K/uL (0.8-4.8); LYMPHOCYTES % (AUTO) 16.4 % (20.5-51.5); MEAN CORPUSCULAR HEMOGLOBIN 28.1 uug (23.8-33.4); MEAN CORPUSCULAR HGB CONC 34 g/dL (32.5-36.3); MEAN CORPUSCULAR VOLUME 82.9 fL (73.0-96.2); MONOCYTES # (AUTO) 0.3 K/uL (0.1-1.30); MONOCYTES % (AUTO) 3.3 % (0.0-11.0); NEUTROPHILS # (AUTO) 6.7 K/uL (1.8-8.9); NEUTROPHILS % (AUTO) 77.5 % (38.5-71.5); PLATELET COUNT (AUTO) 300 K/uL (152-348); RED BLOOD CELL COUNT(AUTO) 2.92 MIL/uL (4.06-5.63); RED CELL DISTRIBUTION WIDTH 18.6 % (12.1-16.2); WHITE BLOOD COUNT (AUTO) 8.6 K/uL (3.6-10.2)
[2023-07-25 05:21] LABS: DIFFERENTIAL COMMENT 1
[2023-07-25 05:24] LABS: CARBON DIOXIDE 22 mmol/L (21-32); CHLORIDE 107 mmol/L (98-107); CREATININE 4.4 mg/dL (0.6-1.3); GLUCOSE 115 mg/dL (74-106); POTASSIUM 3.1 mmol/L (3.5-5.1); SODIUM SERUM 142 mmol/L (136-145)
[2023-07-25 05:30] LABS: UREA NITROGEN, BLOOD 80 mg/dL (7-18)
[2023-07-25 05:43] LABS: MAGNESIUM 1.8 mg/dL (1.8-2.4); PHOSPHOROUS 6.1 mg/dL (2.5-4.9)
[2023-07-25 06:28] LABS: ABG BASE EXCESS -3.4 mmol/L (-2.0-2.0); ABG HCO3 19.2 mmol/L (22.0-26.0); ABG PCO2 25.8 mmHg (35.0-48.0); ABG PH 7.489 (7.340-7.440); ABG PO2 101.8 mmHg (75.0-100.0); ABG SITE LEFT RADIAL; ABG TOTAL HEMOGLOBIN 8.5 G/dL (14.0-18.0); AaDO2 98.1 mmHg; MetHb 0.4 % (0.0-1.5); O2Hb 97.1 % (94.0-97.0); VT, ABG 500 mL
[2023-07-25] MEDS ORDERED: POTASSIUM CHLORIDE 50 ML IV SCH (10:00)
[2023-07-25 10:47] LABS: ABG BASE EXCESS -4.9 mmol/L (-2.0-2.0); ABG HCO3 18.4 mmol/L (22.0-26.0); ABG PCO2 27.7 mmHg (35.0-48.0); ABG PH 7.441 (7.340-7.440); ABG PO2 97.4 mmHg (75.0-100.0); ABG SITE LEFT RADIAL; ABG TOTAL HEMOGLOBIN 8.6 G/dL (14.0-18.0); AaDO2 97.7 mmHg; COHb 0.3 % (0.0-3.9); MetHb 0.5 % (0.0-1.5); O2Hb 96.1 % (94.0-97.0)
[2023-07-25 12:10] LABS: HEPATITIS B SURFACE AB, QUAL Non Reactive (.); HEPATITIS B SURFACE AG Positive (Negative)
[2023-07-25] MEDS: NEPRO 1000 ML GT PRN (14:04)
[2023-07-26] VITALS (26 sets, daily range): BP systolic 115–140; BP diastolic 72–97; TEMP 97.3–99.3; O2SAT 84–100
[2023-07-26 05:11] LABS: BASOPHILS # (AUTO) 0.1 K/UL (0.0-0.2); BASOPHILS % (AUTO) 0.7 % (0.0-2.0); EOSINOPHILS % (AUTO) 0.5 % (0.0-7.0); HEMATOCRIT 24.6 % (36.7-47.1); HEMOGLOBIN 8.2 g/dL (12.5-16.3); LYMPHOCYTES # (AUTO) 1.2 K/uL (0.8-4.8); LYMPHOCYTES % (AUTO) 11.4 % (20.5-51.5); MEAN CORPUSCULAR HEMOGLOBIN 27.6 uug (23.8-33.4); MEAN CORPUSCULAR HGB CONC 34 g/dL (32.5-36.3); MEAN CORPUSCULAR VOLUME 82.5 fL (73.0-96.2); MONOCYTES # (AUTO) 0.4 K/uL (0.1-1.30); MONOCYTES % (AUTO) 4.1 % (0.0-11.0); NEUTROPHILS # (AUTO) 8.7 K/uL (1.8-8.9); NEUTROPHILS % (AUTO) 83.3 % (38.5-71.5); PLATELET COUNT (AUTO) 357 K/uL (152-348); RED BLOOD CELL COUNT(AUTO) 2.98 MIL/uL (4.06-5.63); RED CELL DISTRIBUTION WIDTH 18.9 % (12.1-16.2); WHITE BLOOD COUNT (AUTO) 10.4 K/uL (3.6-10.2)
[2023-07-26 05:20] LABS: CALCIUM 8.1 mg/dL (8.5-10.1); CARBON DIOXIDE 21 mmol/L (21-32); CHLORIDE 106 mmol/L (98-107); CREATININE 4.3 mg/dL (0.6-1.3); GLUCOSE 133 mg/dL (74-106); POTASSIUM 2.9 mmol/L (3.5-5.1); SODIUM SERUM 146 mmol/L (136-145)
[2023-07-26 05:38] LABS: UREA NITROGEN, BLOOD 91 mg/dL (7-18)
[2023-07-26 05:46] LABS: DIFFERENTIAL COMMENT 1
[2023-07-26 05:54] LABS: MAGNESIUM 1.9 mg/dL (1.8-2.4)
[2023-07-26 06:29] LABS: ABG BASE EXCESS -4.9 mmol/L (-2.0-2.0); ABG PCO2 31.3 mmHg (35.0-48.0); ABG PH 7.401 (7.340-7.440); ABG TOTAL HEMOGLOBIN 10.5 G/dL (14.0-18.0); AaDO2 95.4 mmHg; COHb 0.3 % (0.0-3.9); MetHb 0.2 % (0.0-1.5); O2Hb 93.8 % (94.0-97.0)
[2023-07-26] MEDS: AMIODARONE HCL 200 MG TABLET PO SCH (09:11)
[2023-07-26] MEDS: POTASSIUM CHLORIDE 50 ML IV SCH (12:06)
[2023-07-27] VITALS (41 sets, daily range): BP systolic 89–150; BP diastolic 54–91; TEMP 97.5–98.8; O2SAT 94–100
[2023-07-27] MEDS ORDERED: DILTIAZEM HCL 25 MG IV ONE (03:22)
[2023-07-27] MEDS: DILTIAZEM HCL IV 125 MG in IV NORMAL SALINE 100 ML IV PRN (03:42)
[2023-07-27 05:03] LABS: BASOPHILS # (AUTO) 0.1 K/UL (0.0-0.2); BASOPHILS % (AUTO) 0.8 % (0.0-2.0); EOSINOPHILS # (AUTO) 0.1 K/uL (0.0-0.7); HEMATOCRIT 24.8 % (36.7-47.1); HEMOGLOBIN 8.4 g/dL (12.5-16.3); LYMPHOCYTES # (AUTO) 1.1 K/uL (0.8-4.8); LYMPHOCYTES % (AUTO) 13.5 % (20.5-51.5); MEAN CORPUSCULAR HEMOGLOBIN 27.8 uug (23.8-33.4); MEAN CORPUSCULAR HGB CONC 34 g/dL (32.5-36.3); MEAN CORPUSCULAR VOLUME 82.5 fL (73.0-96.2); MONOCYTES # (AUTO) 0.4 K/uL (0.1-1.30); MONOCYTES % (AUTO) 5.1 % (0.0-11.0); NEUTROPHILS # (AUTO) 6.6 K/uL (1.8-8.9); NEUTROPHILS % (AUTO) 79.6 % (38.5-71.5); PLATELET COUNT (AUTO) 303 K/uL (152-348); RED BLOOD CELL COUNT(AUTO) 3.01 MIL/uL (4.06-5.63); RED CELL DISTRIBUTION WIDTH 18.3 % (12.1-16.2); WHITE BLOOD COUNT (AUTO) 8.4 K/uL (3.6-10.2)
[2023-07-27 05:24] LABS: CALCIUM 8.2 mg/dL (8.5-10.1); CARBON DIOXIDE 26 mmol/L (21-32); CHLORIDE 109 mmol/L (98-107); CREATININE 2.7 mg/dL (0.6-1.3); GLUCOSE 142 mg/dL (74-106); POTASSIUM 3.2 mmol/L (3.5-5.1); SODIUM SERUM 147 mmol/L (136-145); UREA NITROGEN, BLOOD 51 mg/dL (7-18)
[2023-07-27 05:37] LABS: DIFFERENTIAL COMMENT 1
[2023-07-27] MEDS ORDERED: IPRATROPIUM BROMIDE 0.5 MG/2.5 ML NEBU NEB PRN (08:30)
[2023-07-27] MEDS: ACETYLCYSTEINE 20% 800 MG/4 ML VIAL NEB SCH (08:30)
[2023-07-27] MEDS: IPRATROPIUM BROMIDE 0.5 MG/2.5 ML NEBU NEB SCH (09:00)
[2023-07-27] MEDS: AMIODARONE HCL IV 150 MG in IV DEXTROSE 5% 100 ML IV ONE (09:19)
[2023-07-27] MEDS: AMIODARONE HCL 200 MG TABLET PO SCH (09:33)
[2023-07-27] MEDS ORDERED: DILTIAZEM HCL 50 MG IV ONE (22:30)
[2023-07-28] VITALS (32 sets, daily range): BP systolic 101–144; BP diastolic 60–109; TEMP 98.2–98.9; O2SAT 89–99
[2023-07-28 04:55] LABS: BASOPHILS # (AUTO) 0.1 K/UL (0.0-0.2); BASOPHILS % (AUTO) 0.9 % (0.0-2.0); EOSINOPHILS # (AUTO) 0.1 K/uL (0.0-0.7); EOSINOPHILS % (AUTO) 1.3 % (0.0-7.0); HEMATOCRIT 26.3 % (36.7-47.1); HEMOGLOBIN 8.7 g/dL (12.5-16.3); LYMPHOCYTES # (AUTO) 1.1 K/uL (0.8-4.8); LYMPHOCYTES % (AUTO) 12.7 % (20.5-51.5); MEAN CORPUSCULAR HEMOGLOBIN 27.7 uug (23.8-33.4); MEAN CORPUSCULAR HGB CONC 33 g/dL (32.5-36.3); MEAN CORPUSCULAR VOLUME 83.5 fL (73.0-96.2); MONOCYTES # (AUTO) 0.5 K/uL (0.1-1.30); MONOCYTES % (AUTO) 5.4 % (0.0-11.0); NEUTROPHILS % (AUTO) 79.7 % (38.5-71.5); PLATELET COUNT (AUTO) 293 K/uL (152-348); RED BLOOD CELL COUNT(AUTO) 3.15 MIL/uL (4.06-5.63); RED CELL DISTRIBUTION WIDTH 18.8 % (12.1-16.2); WHITE BLOOD COUNT (AUTO) 8.8 K/uL (3.6-10.2)
[2023-07-28 05:14] LABS: CALCIUM 8.4 mg/dL (8.5-10.1); CARBON DIOXIDE 28 mmol/L (21-32); CHLORIDE 107 mmol/L (98-107); CREATININE 2.8 mg/dL (0.6-1.3); GLUCOSE 154 mg/dL (74-106); SODIUM SERUM 146 mmol/L (136-145); UREA NITROGEN, BLOOD 60 mg/dL (7-18)
[2023-07-28 05:17] LABS: MAGNESIUM 1.8 mg/dL (1.8-2.4); PHOSPHOROUS 3.5 mg/dL (2.5-4.9); POTASSIUM 2.8 mmol/L (3.5-5.1)
[2023-07-28 06:25] LABS: ABG BASE EXCESS 1.4 mmol/L (-2.0-2.0); ABG HCO3 24.6 mmol/L (22.0-26.0); ABG PCO2 33.3 mmHg (35.0-48.0); ABG PH 7.486 (7.340-7.440); ABG PO2 62.9 mmHg (75.0-100.0); ABG SITE LEFT RADIAL; ABG TOTAL HEMOGLOBIN 9.8 G/dL (14.0-18.0); AaDO2 93.8 mmHg; COHb 0.3 % (0.0-3.9); MetHb 0.2 % (0.0-1.5); O2Hb 92.3 % (94.0-97.0)
[2023-07-28 07:42] LABS: DIFFERENTIAL COMMENT 1
[2023-07-28] MEDS: METOPROLOL TARTRATE 50 MG TABLET PO SCH (09:37)
[2023-07-28] MEDS: POTASSIUM CHLORIDE 20 MEQ TAB.PRT.SR PO ONE (09:38)
[2023-07-28] MEDS: MAGNESIUM SULFATE/D5W 100 ML IV SCH (10:23)
[2023-07-28 13:12] LABS: HEPATITIS B SURFACE AB, QUAL Non Reactive (.); HEPATITIS B SURFACE AG Positive (Negative)
[2023-07-29] VITALS (35 sets, daily range): BP systolic 93–130; BP diastolic 57–77; TEMP 97.8–99.1; O2SAT 87–100
[2023-07-29 02:08] LABS: HEPATITIS B CORE AB, IgM Negative (Negative); HEPATITIS B CORE AB, TOTAL Positive (Negative); HEPATITIS Be ANTIGEN Negative (Negative)
[2023-07-29 05:31] LABS: BASOPHILS # (AUTO) 0.1 K/UL (0.0-0.2); BASOPHILS % (AUTO) 0.8 % (0.0-2.0); EOSINOPHILS # (AUTO) 0.3 K/uL (0.0-0.7); EOSINOPHILS % (AUTO) 3.1 % (0.0-7.0); HEMATOCRIT 27.9 % (36.7-47.1); HEMOGLOBIN 9.1 g/dL (12.5-16.3); LYMPHOCYTES # (AUTO) 1.2 K/uL (0.8-4.8); MEAN CORPUSCULAR HEMOGLOBIN 27.4 uug (23.8-33.4); MEAN CORPUSCULAR HGB CONC 33 g/dL (32.5-36.3); MEAN CORPUSCULAR VOLUME 83.6 fL (73.0-96.2); MONOCYTES # (AUTO) 0.5 K/uL (0.1-1.30); MONOCYTES % (AUTO) 5.4 % (0.0-11.0); NEUTROPHILS # (AUTO) 6.9 K/uL (1.8-8.9); NEUTROPHILS % (AUTO) 77.7 % (38.5-71.5); PLATELET COUNT (AUTO) 303 K/uL (152-348); RED BLOOD CELL COUNT(AUTO) 3.34 MIL/uL (4.06-5.63); RED CELL DISTRIBUTION WIDTH 19.2 % (12.1-16.2); WHITE BLOOD COUNT (AUTO) 8.9 K/uL (3.6-10.2)
[2023-07-29 05:39] LABS: DIFFERENTIAL COMMENT 1
[2023-07-29 05:47] LABS: CALCIUM 8.2 mg/dL (8.5-10.1); CARBON DIOXIDE 28 mmol/L (21-32); CHLORIDE 107 mmol/L (98-107); CREATININE 2.9 mg/dL (0.6-1.3); GLUCOSE 173 mg/dL (74-106); MAGNESIUM 2.2 mg/dL (1.8-2.4); PHOSPHOROUS 3.7 mg/dL (2.5-4.9); POTASSIUM 2.9 mmol/L (3.5-5.1); SODIUM SERUM 146 mmol/L (136-145); UREA NITROGEN, BLOOD 62 mg/dL (7-18)
[2023-07-29 05:52] LABS: ABG BASE EXCESS 3.2 mmol/L (-2.0-2.0); ABG HCO3 26.8 mmol/L (22.0-26.0); ABG PCO2 36.8 mmHg (35.0-48.0); ABG SITE LEFT RADIAL; ABG TOTAL HEMOGLOBIN 9.6 G/dL (14.0-18.0); AaDO2 96.1 mmHg; COHb 0.3 % (0.0-3.9); MetHb 0.5 % (0.0-1.5); O2Hb 94.2 % (94.0-97.0)
[2023-07-29] MEDS ORDERED: SILVER NITRATE APPLICATOR STICK EACH TP PRN (07:00)
[2023-07-29] MEDS ORDERED: LIDOCAINE 1%-EPI 1:100,000 20 ML VIAL IJ PRN (07:00)
[2023-07-29] MEDS: ARGININE/GLUTAMINE/CALCIUM BMB 1 EACH POWD.PACK GT SCH (08:07)
[2023-07-29] MEDS: POTASSIUM CHLORIDE 20 MEQ POWDER PACKET GT ONE (10:12)
[2023-07-29] MEDS: POTASSIUM CHLORIDE 50 ML IV SCH (10:15)
[2023-07-29 12:10] LABS: HEPATITIS B CORE AB, IgM Negative (Negative); HEPATITIS B CORE AB, TOTAL Positive (Negative); HEPATITIS B SURFACE AB, QUAL Non Reactive (.); HEPATITIS B SURFACE AG Positive (Negative)
[2023-07-29] MEDS: AMIODARONE HCL 200 MG TABLET PO SCH (17:20)
[2023-07-30] VITALS (35 sets, daily range): BP systolic 87–127; BP diastolic 57–77; TEMP 98.6–99.2; O2SAT 87–99
[2023-07-30 04:59] LABS: BASOPHILS # (AUTO) 0.1 K/UL (0.0-0.2); BASOPHILS % (AUTO) 0.8 % (0.0-2.0); EOSINOPHILS # (AUTO) 0.4 K/uL (0.0-0.7); EOSINOPHILS % (AUTO) 3.5 % (0.0-7.0); HEMATOCRIT 28.7 % (36.7-47.1); HEMOGLOBIN 9.5 g/dL (12.5-16.3); LYMPHOCYTES # (AUTO) 1.6 K/uL (0.8-4.8); LYMPHOCYTES % (AUTO) 15.9 % (20.5-51.5); MEAN CORPUSCULAR HEMOGLOBIN 27.7 uug (23.8-33.4); MEAN CORPUSCULAR HGB CONC 33 g/dL (32.5-36.3); MEAN CORPUSCULAR VOLUME 83.5 fL (73.0-96.2); MONOCYTES # (AUTO) 0.6 K/uL (0.1-1.30); MONOCYTES % (AUTO) 5.7 % (0.0-11.0); NEUTROPHILS # (AUTO) 7.6 K/uL (1.8-8.9); NEUTROPHILS % (AUTO) 74.1 % (38.5-71.5); PLATELET COUNT (AUTO) 321 K/uL (152-348); RED BLOOD CELL COUNT(AUTO) 3.44 MIL/uL (4.06-5.63); RED CELL DISTRIBUTION WIDTH 19.4 % (12.1-16.2); WHITE BLOOD COUNT (AUTO) 10.2 K/uL (3.6-10.2)
[2023-07-30 05:05] LABS: DIFFERENTIAL COMMENT 1
[2023-07-30 05:12] LABS: CALCIUM 8.6 mg/dL (8.5-10.1); CARBON DIOXIDE 28 mmol/L (21-32); CHLORIDE 108 mmol/L (98-107); GLUCOSE 166 mg/dL (74-106); MAGNESIUM 2.1 mg/dL (1.8-2.4); POTASSIUM 3.5 mmol/L (3.5-5.1); SODIUM SERUM 146 mmol/L (136-145)
[2023-07-30 05:19] LABS: UREA NITROGEN, BLOOD 80 mg/dL (7-18)
[2023-07-30] MEDS: POTASSIUM CHLORIDE 20 MEQ POWDER PACKET GT ONE (08:00)
[2023-07-30] MEDS: FUROSEMIDE 40 MG/4 ML VIAL IV SCH (08:03)
[2023-07-30] MEDS: ALBUMIN HUMAN 25% 100 ML IV PRN (19:23)
[2023-07-31] VITALS (30 sets, daily range): BP systolic 95–130; BP diastolic 58–76; TEMP 98.1–98.9; O2SAT 92–100
[2023-07-31 05:00] LABS: BASOPHILS # (AUTO) 0.1 K/UL (0.0-0.2); BASOPHILS % (AUTO) 0.6 % (0.0-2.0); EOSINOPHILS # (AUTO) 0.4 K/uL (0.0-0.7); EOSINOPHILS % (AUTO) 4.3 % (0.0-7.0); HEMATOCRIT 25.2 % (36.7-47.1); HEMOGLOBIN 8.2 g/dL (12.5-16.3); LYMPHOCYTES # (AUTO) 1.3 K/uL (0.8-4.8); LYMPHOCYTES % (AUTO) 14.3 % (20.5-51.5); MEAN CORPUSCULAR HEMOGLOBIN 27.3 uug (23.8-33.4); MEAN CORPUSCULAR HGB CONC 33 g/dL (32.5-36.3); MEAN CORPUSCULAR VOLUME 83.3 fL (73.0-96.2); MONOCYTES # (AUTO) 0.5 K/uL (0.1-1.30); NEUTROPHILS # (AUTO) 6.8 K/uL (1.8-8.9); NEUTROPHILS % (AUTO) 75.8 % (38.5-71.5); PLATELET COUNT (AUTO) 234 K/uL (152-348); RED BLOOD CELL COUNT(AUTO) 3.02 MIL/uL (4.06-5.63); RED CELL DISTRIBUTION WIDTH 19.3 % (12.1-16.2)
[2023-07-31 05:04] LABS: DIFFERENTIAL COMMENT 1
[2023-07-31 05:16] LABS: CARBON DIOXIDE 31 mmol/L (21-32); CHLORIDE 106 mmol/L (98-107); CREATININE 2.3 mg/dL (0.6-1.3); GLUCOSE 164 mg/dL (74-106); MAGNESIUM 1.9 mg/dL (1.8-2.4); PHOSPHOROUS 2.9 mg/dL (2.5-4.9); POTASSIUM 3.3 mmol/L (3.5-5.1); SODIUM SERUM 145 mmol/L (136-145); UREA NITROGEN, BLOOD 66 mg/dL (7-18)
[2023-07-31] MEDS ORDERED: ACETYLCYSTEINE 20% 800 MG/4 ML VIAL ONE (08:00)
[2023-07-31] MEDS: POTASSIUM CHLORIDE 20 MEQ POWDER PACKET GT ONE (08:49)
[2023-07-31] MEDS: MUPIROCIN 2% OINT 22 GM TUBE NS SCH (13:45)
[2023-07-31 17:12] LABS: PROTEIN, BODY FLUID 3.5 G/DL
[2023-07-31 18:30] LABS: TOTAL VOLUME,BODY FLUID 1100 mL
[2023-07-31 18:43] LABS: WBC, BODY FLUID 662 /cu. mm (0-200/cu.mm)
[2023-07-31 18:44] LABS: POLYNUCLEAR, BODY FLUID 32 % (0-25%)
[2023-08-01] VITALS (24 sets, daily range): BP systolic 94–118; BP diastolic 57–69; TEMP 97.3–99.6; O2SAT 91–100
[2023-08-01 05:20] LABS: BASOPHILS % (AUTO) 0.4 % (0.0-2.0); EOSINOPHILS # (AUTO) 0.3 K/uL (0.0-0.7); EOSINOPHILS % (AUTO) 3.2 % (0.0-7.0); HEMOGLOBIN 8.4 g/dL (12.5-16.3); LYMPHOCYTES # (AUTO) 1.5 K/uL (0.8-4.8); LYMPHOCYTES % (AUTO) 14.8 % (20.5-51.5); MEAN CORPUSCULAR HEMOGLOBIN 28.2 uug (23.8-33.4); MEAN CORPUSCULAR HGB CONC 34 g/dL (32.5-36.3); MEAN CORPUSCULAR VOLUME 84.1 fL (73.0-96.2); MONOCYTES # (AUTO) 0.4 K/uL (0.1-1.30); MONOCYTES % (AUTO) 3.5 % (0.0-11.0); NEUTROPHILS # (AUTO) 8.2 K/uL (1.8-8.9); NEUTROPHILS % (AUTO) 78.1 % (38.5-71.5); PLATELET COUNT (AUTO) 255 K/uL (152-348); RED BLOOD CELL COUNT(AUTO) 2.97 MIL/uL (4.06-5.63); RED CELL DISTRIBUTION WIDTH 19.3 % (12.1-16.2); WHITE BLOOD COUNT (AUTO) 10.5 K/uL (3.6-10.2)
[2023-08-01 05:57] LABS: DIFFERENTIAL COMMENT 1
[2023-08-01 06:23] LABS: ERYTHROCYTE SEDIMENTATION RATE 60 MM/HR (0-15)
[2023-08-01 06:31] LABS: C-REACTIVE PROTEIN 14.83 mg/dL (0.00-0.30); CALCIUM 8.2 mg/dL (8.5-10.1); CARBON DIOXIDE 32 mmol/L (21-32); CHLORIDE 104 mmol/L (98-107); CREATININE 1.7 mg/dL (0.6-1.3); GLUCOSE 162 mg/dL (74-106); MAGNESIUM 1.9 mg/dL (1.8-2.4); PHOSPHOROUS 2.2 mg/dL (2.5-4.9); POTASSIUM 3.7 mmol/L (3.5-5.1); SODIUM SERUM 143 mmol/L (136-145); UREA NITROGEN, BLOOD 47 mg/dL (7-18)
[2023-08-01] MEDS: NEUTRA PHOS PACKET GT ONE (17:04)
[2023-08-02] VITALS (12 sets, daily range): BP systolic 99–126; BP diastolic 59–71; TEMP 97.9–100.3; O2SAT 93–100
[2023-08-02] MEDS: BLOOD SUGAR DIAGNOSTIC 1 EACH STRIP VI SCH (12:02)
[2023-08-02 12:11] LABS: BASOPHILS # (AUTO) 0.1 K/UL (0.0-0.2); DIFFERENTIAL COMMENT 0; WHITE BLOOD COUNT (AUTO) 9.7 K/uL (3.6-10.2)
[2023-08-02 12:17] LABS: CALCIUM 8.4 mg/dL (8.5-10.1); CARBON DIOXIDE 33 mmol/L (21-32); CHLORIDE 105 mmol/L (98-107); CREATININE 2.2 mg/dL (0.6-1.3); GLUCOSE 115 mg/dL (74-106); MAGNESIUM 1.8 mg/dL (1.8-2.4); PHOSPHOROUS 2.5 mg/dL (2.5-4.9); POTASSIUM 3.6 mmol/L (3.5-5.1); SODIUM SERUM 144 mmol/L (136-145); UREA NITROGEN, BLOOD 71 mg/dL (7-18)
[2023-08-02 12:50] LABS: BASOPHILS % (AUTO) 0.7 % (0.0-2.0); EOSINOPHILS # (AUTO) 0.4 K/uL (0.0-0.7); EOSINOPHILS % (AUTO) 4.3 % (0.0-7.0); HEMATOCRIT 27.2 % (36.7-47.1); LYMPHOCYTES # (AUTO) 1.4 K/uL (0.8-4.8); LYMPHOCYTES % (AUTO) 14.7 % (20.5-51.5); MEAN CORPUSCULAR HEMOGLOBIN 27.5 uug (23.8-33.4); MEAN CORPUSCULAR HGB CONC 33 g/dL (32.5-36.3); MEAN CORPUSCULAR VOLUME 83.5 fL (73.0-96.2); MONOCYTES # (AUTO) 0.5 K/uL (0.1-1.30); MONOCYTES % (AUTO) 4.7 % (0.0-11.0); NEUTROPHILS # (AUTO) 7.4 K/uL (1.8-8.9); NEUTROPHILS % (AUTO) 75.6 % (38.5-71.5); PLATELET COUNT (AUTO) 291 K/uL (152-348); RED BLOOD CELL COUNT(AUTO) 3.26 MIL/uL (4.06-5.63); RED CELL DISTRIBUTION WIDTH 19.4 % (12.1-16.2)
[2023-08-02] MEDS: INSULIN REGULAR, HUMAN 300 UNIT/3 ML VIAL SQ PRN (17:22)
[2023-08-02] MEDS: REMEDY ESSENTIAL ZINC PASTE 113 GM TP PRN (17:34)
[2023-08-03] VITALS (12 sets, daily range): BP systolic 95–113; BP diastolic 55–72; TEMP 97.2–98.7; O2SAT 93–99
[2023-08-03 06:59] LABS: BASOPHILS # (AUTO) 0.1 K/UL (0.0-0.2); BASOPHILS % (AUTO) 0.5 % (0.0-2.0); EOSINOPHILS # (AUTO) 0.4 K/uL (0.0-0.7); EOSINOPHILS % (AUTO) 4.1 % (0.0-7.0); HEMATOCRIT 24.7 % (36.7-47.1); HEMOGLOBIN 8.3 g/dL (12.5-16.3); LYMPHOCYTES # (AUTO) 1.4 K/uL (0.8-4.8); LYMPHOCYTES % (AUTO) 14.4 % (20.5-51.5); MEAN CORPUSCULAR HGB CONC 34 g/dL (32.5-36.3); MEAN CORPUSCULAR VOLUME 83.3 fL (73.0-96.2); MONOCYTES # (AUTO) 0.5 K/uL (0.1-1.30); MONOCYTES % (AUTO) 4.5 % (0.0-11.0); NEUTROPHILS # (AUTO) 7.6 K/uL (1.8-8.9); NEUTROPHILS % (AUTO) 76.5 % (38.5-71.5); PLATELET COUNT (AUTO) 250 K/uL (152-348); RED BLOOD CELL COUNT(AUTO) 2.96 MIL/uL (4.06-5.63); RED CELL DISTRIBUTION WIDTH 18.8 % (12.1-16.2)
[2023-08-03 07:06] LABS: DIFFERENTIAL COMMENT 1
[2023-08-03 07:23] LABS: CALCIUM 8.1 mg/dL (8.5-10.1); CARBON DIOXIDE 31 mmol/L (21-32); CHLORIDE 107 mmol/L (98-107); CREATININE 1.8 mg/dL (0.6-1.3); GLUCOSE 175 mg/dL (74-106); MAGNESIUM 1.8 mg/dL (1.8-2.4); PHOSPHOROUS 2.1 mg/dL (2.5-4.9); POTASSIUM 3.1 mmol/L (3.5-5.1); SODIUM SERUM 144 mmol/L (136-145); UREA NITROGEN, BLOOD 53 mg/dL (7-18)
[2023-08-03 07:27] LABS: C-REACTIVE PROTEIN 15.04 mg/dL (0.00-0.30)
[2023-08-03] MEDS: BUMETANIDE 1 MG TABLET PO SCH (09:07)
[2023-08-03] MEDS: POTASSIUM CHLORIDE 10 MEQ TAB.PRT.SR PO ONE (09:38)
[2023-08-03] MEDS: DEXTROSE 50% 50 ML DISP.SYRIN IV PRN (11:51)
[2023-08-03] MEDS: IV 10% DEXTROSE 1,000 ML IV PRN (13:26)
[2023-08-03 14:59] LABS: CALCIUM 8.1 mg/dL (8.5-10.1); CARBON DIOXIDE 31 mmol/L (21-32); CHLORIDE 106 mmol/L (98-107); CREATININE 1.8 mg/dL (0.6-1.3); GLUCOSE 72 mg/dL (74-106); POTASSIUM 3.6 mmol/L (3.5-5.1); SODIUM SERUM 143 mmol/L (136-145); UREA NITROGEN, BLOOD 56 mg/dL (7-18)
[2023-08-03] MEDS: SODIUM PHOSPHATE MM 15 MMOL in IV NORMAL SALINE 250 ML IV ONE (18:00)
[2023-08-03] MEDS ORDERED: LIDOCAINE 4% TOPICAL 50 ML BOTTLE ONE (19:53)
[2023-08-03] MEDS ORDERED: ETOMIDATE 20 MG/10 ML VIAL ONE (20:00)
[2023-08-04] VITALS (11 sets, daily range): BP systolic 97–126; BP diastolic 54–74; TEMP 97.5–98.1; O2SAT 88–100
[2023-08-04 07:10] LABS: BASOPHILS # (AUTO) 0.1 K/UL (0.0-0.2); BASOPHILS % (AUTO) 0.8 % (0.0-2.0); EOSINOPHILS # (AUTO) 0.2 K/uL (0.0-0.7); EOSINOPHILS % (AUTO) 1.8 % (0.0-7.0); HEMATOCRIT 25.5 % (36.7-47.1); HEMOGLOBIN 8.3 g/dL (12.5-16.3); LYMPHOCYTES # (AUTO) 1.8 K/uL (0.8-4.8); LYMPHOCYTES % (AUTO) 16.3 % (20.5-51.5); MEAN CORPUSCULAR HEMOGLOBIN 27.6 uug (23.8-33.4); MEAN CORPUSCULAR HGB CONC 33 g/dL (32.5-36.3); MEAN CORPUSCULAR VOLUME 84.3 fL (73.0-96.2); MONOCYTES # (AUTO) 0.5 K/uL (0.1-1.30); MONOCYTES % (AUTO) 4.1 % (0.0-11.0); NEUTROPHILS # (AUTO) 8.6 K/uL (1.8-8.9); PLATELET COUNT (AUTO) 186 K/uL (152-348); RED BLOOD CELL COUNT(AUTO) 3.02 MIL/uL (4.06-5.63); RED CELL DISTRIBUTION WIDTH 19.2 % (12.1-16.2); WHITE BLOOD COUNT (AUTO) 11.2 K/uL (3.6-10.2)
[2023-08-04 07:19] LABS: DIFFERENTIAL COMMENT 1
[2023-08-04 07:23] LABS: CALCIUM 8.3 mg/dL (8.5-10.1); CARBON DIOXIDE 28 mmol/L (21-32); CHLORIDE 105 mmol/L (98-107); CREATININE 1.9 mg/dL (0.6-1.3); GLUCOSE 153 mg/dL (74-106); MAGNESIUM 1.9 mg/dL (1.8-2.4); PHOSPHOROUS 3.5 mg/dL (2.5-4.9); POTASSIUM 3.9 mmol/L (3.5-5.1); SODIUM SERUM 142 mmol/L (136-145); UREA NITROGEN, BLOOD 55 mg/dL (7-18)
[2023-08-04] MEDS ORDERED: METOPROLOL TARTRATE 50 MG TABLET PO SCH (09:00)
[2023-08-04] MEDS: METOPROLOL TARTRATE 25 MG TABLET PO SCH (09:00)
[2023-08-05] VITALS (15 sets, daily range): BP systolic 102–126; BP diastolic 59–72; TEMP 97.5–98.3; O2SAT 93–100
[2023-08-05 07:55] LABS: BASOPHILS # (AUTO) 0.1 K/UL (0.0-0.2); BASOPHILS % (AUTO) 0.5 % (0.0-2.0); EOSINOPHILS # (AUTO) 0.1 K/uL (0.0-0.7); EOSINOPHILS % (AUTO) 1.3 % (0.0-7.0); HEMATOCRIT 23.8 % (36.7-47.1); HEMOGLOBIN 8.1 g/dL (12.5-16.3); LYMPHOCYTES # (AUTO) 1.4 K/uL (0.8-4.8); LYMPHOCYTES % (AUTO) 13.5 % (20.5-51.5); MEAN CORPUSCULAR HEMOGLOBIN 27.9 uug (23.8-33.4); MEAN CORPUSCULAR HGB CONC 34 g/dL (32.5-36.3); MEAN CORPUSCULAR VOLUME 82.2 fL (73.0-96.2); MONOCYTES # (AUTO) 0.4 K/uL (0.1-1.30); NEUTROPHILS # (AUTO) 8.3 K/uL (1.8-8.9); NEUTROPHILS % (AUTO) 80.7 % (38.5-71.5); PLATELET COUNT (AUTO) 274 K/uL (152-348); RED BLOOD CELL COUNT(AUTO) 2.89 MIL/uL (4.06-5.63); RED CELL DISTRIBUTION WIDTH 18.5 % (12.1-16.2); WHITE BLOOD COUNT (AUTO) 10.3 K/uL (3.6-10.2)
[2023-08-05 08:09] LABS: DIFFERENTIAL COMMENT 1
[2023-08-05 08:24] LABS: CALCIUM 8.2 mg/dL (8.5-10.1); CARBON DIOXIDE 29 mmol/L (21-32); CHLORIDE 103 mmol/L (98-107); CREATININE 2.1 mg/dL (0.6-1.3); GLUCOSE 166 mg/dL (74-106); MAGNESIUM 1.8 mg/dL (1.8-2.4); PHOSPHOROUS 3.6 mg/dL (2.5-4.9); POTASSIUM 3.2 mmol/L (3.5-5.1); SODIUM SERUM 140 mmol/L (136-145); UREA NITROGEN, BLOOD 65 mg/dL (7-18)
[2023-08-05] MEDS ORDERED: ALBUMIN HUMAN 25% 100 ML IV PRN (10:45)
[2023-08-05] MEDS: ALBUMIN HUMAN 25% 100 ML IV ONE (11:10)
[2023-08-06] VITALS (10 sets, daily range): BP systolic 104–133; BP diastolic 64–70; TEMP 97.6–99.1; O2SAT 85–100
[2023-08-06] MEDS ORDERED: SILVER NITRATE APPLICATOR STICK EACH TP ONE (07:00)
[2023-08-06] MEDS ORDERED: LIDOCAINE 1%-EPI 1:100,000 20 ML VIAL IJ ONE (07:00)
[2023-08-06 08:17] LABS: BASOPHILS % (AUTO) 0.4 % (0.0-2.0); EOSINOPHILS # (AUTO) 0.2 K/uL (0.0-0.7); EOSINOPHILS % (AUTO) 1.4 % (0.0-7.0); HEMATOCRIT 23.5 % (36.7-47.1); HEMOGLOBIN 7.9 g/dL (12.5-16.3); LYMPHOCYTES # (AUTO) 1.5 K/uL (0.8-4.8); LYMPHOCYTES % (AUTO) 13.1 % (20.5-51.5); MEAN CORPUSCULAR HEMOGLOBIN 27.6 uug (23.8-33.4); MEAN CORPUSCULAR HGB CONC 34 g/dL (32.5-36.3); MEAN CORPUSCULAR VOLUME 82.4 fL (73.0-96.2); MONOCYTES # (AUTO) 0.4 K/uL (0.1-1.30); MONOCYTES % (AUTO) 3.7 % (0.0-11.0); NEUTROPHILS # (AUTO) 9.2 K/uL (1.8-8.9); NEUTROPHILS % (AUTO) 81.4 % (38.5-71.5); PLATELET COUNT (AUTO) 288 K/uL (152-348); RED BLOOD CELL COUNT(AUTO) 2.85 MIL/uL (4.06-5.63); RED CELL DISTRIBUTION WIDTH 18.9 % (12.1-16.2); WHITE BLOOD COUNT (AUTO) 11.3 K/uL (3.6-10.2)
[2023-08-06 08:21] LABS: CALCIUM 8.2 mg/dL (8.5-10.1); CARBON DIOXIDE 29 mmol/L (21-32); CHLORIDE 102 mmol/L (98-107); CREATININE 1.7 mg/dL (0.6-1.3); GLUCOSE 154 mg/dL (74-106); MAGNESIUM 1.8 mg/dL (1.8-2.4); PHOSPHOROUS 2.8 mg/dL (2.5-4.9); POTASSIUM 3.2 mmol/L (3.5-5.1); SODIUM SERUM 141 mmol/L (136-145); UREA NITROGEN, BLOOD 55 mg/dL (7-18)
[2023-08-06 08:27] LABS: DIFFERENTIAL COMMENT 1
[2023-08-06] MEDS ORDERED: POTASSIUM CHLORIDE 50 ML IV SCH (09:30)
[2023-08-06] MEDS: POTASSIUM CHLORIDE 50 ML IV SCH (10:28)
[2023-08-06] MEDS: SILVER NITRATE APPLICATOR STICK EACH TP PRN (14:23)
[2023-08-06] MEDS: LIDOCAINE 1%-EPI 1:100,000 20 ML VIAL IJ PRN (14:23)
[2023-08-07] VITALS (13 sets, daily range): BP systolic 111–160; BP diastolic 59–88; TEMP 97.6–98.6; O2SAT 93–99
[2023-08-07] MEDS ORDERED: PROPOFOL 200 MG/20 ML BOTTLE ONE (06:00)
[2023-08-07] MEDS ORDERED: BUPIVACAINE PF 0.5% 30 ML VIAL ONE (06:14)
[2023-08-07] MEDS ORDERED: HEPARIN SODIUM,PORCINE 1,000 UNITS/ML VIAL ONE (06:14)
[2023-08-07] MEDS ORDERED: LIDOCAINE HCL 1% 20 ML VIAL ONE (06:14)
[2023-08-07] MEDS ORDERED: HEPARIN/NS 500 ML ONE (06:14)
[2023-08-07 06:43] LABS: BASOPHILS # (AUTO) 0.1 K/UL (0.0-0.2); BASOPHILS % (AUTO) 0.5 % (0.0-2.0); EOSINOPHILS # (AUTO) 0.1 K/uL (0.0-0.7); EOSINOPHILS % (AUTO) 0.8 % (0.0-7.0); HEMATOCRIT 21.6 % (36.7-47.1); LYMPHOCYTES # (AUTO) 1.6 K/uL (0.8-4.8); LYMPHOCYTES % (AUTO) 13.7 % (20.5-51.5); MEAN CORPUSCULAR HEMOGLOBIN 27.4 uug (23.8-33.4); MEAN CORPUSCULAR HGB CONC 34 g/dL (32.5-36.3); MEAN CORPUSCULAR VOLUME 81.6 fL (73.0-96.2); MONOCYTES # (AUTO) 0.5 K/uL (0.1-1.30); MONOCYTES % (AUTO) 4.2 % (0.0-11.0); NEUTROPHILS # (AUTO) 9.3 K/uL (1.8-8.9); NEUTROPHILS % (AUTO) 80.8 % (38.5-71.5); PLATELET COUNT (AUTO) 292 K/uL (152-348); RED BLOOD CELL COUNT(AUTO) 2.65 MIL/uL (4.06-5.63); RED CELL DISTRIBUTION WIDTH 18.6 % (12.1-16.2); WHITE BLOOD COUNT (AUTO) 11.5 K/uL (3.6-10.2)
[2023-08-07] MEDS ORDERED: MIDAZOLAM HCL 2 MG/2 ML VIAL ONE (06:45)
[2023-08-07 06:51] LABS: DIFFERENTIAL COMMENT 1; HEMOGLOBIN 7.2 g/dL (12.5-16.3)
[2023-08-07 06:55] LABS: CALCIUM 8.2 mg/dL (8.5-10.1); CARBON DIOXIDE 29 mmol/L (21-32); CHLORIDE 103 mmol/L (98-107); CREATININE 1.9 mg/dL (0.6-1.3); GLUCOSE 124 mg/dL (74-106); MAGNESIUM 1.8 mg/dL (1.8-2.4); PHOSPHOROUS 2.6 mg/dL (2.5-4.9); POTASSIUM 3.1 mmol/L (3.5-5.1); SODIUM SERUM 140 mmol/L (136-145); UREA NITROGEN, BLOOD 64 mg/dL (7-18)
[2023-08-07] MEDS ORDERED: CEFAZOLIN 50 ML IV ONE (08:11)
[2023-08-07] MEDS: POTASSIUM CHLORIDE 20 MEQ POWDER PACKET GT ONE (10:56)
[2023-08-07] MEDS ORDERED: CEFAZOLIN 1 G in IV DEXTROSE 5% 50 ML IV SCH (16:00)
[2023-08-08] VITALS (9 sets, daily range): BP systolic 101–121; BP diastolic 57–76; TEMP 97.6–98; O2SAT 96–99
[2023-08-08] MEDS: NEPRO 1000 ML GT PRN (09:52)
[2023-08-08] MEDS ORDERED: IPRATROPIUM BROMIDE 0.5 MG/2.5 ML NEBU ONE (23:57)
[2023-08-09] VITALS (16 sets, daily range): BP systolic 100–117; BP diastolic 55–64; TEMP 97.8–101.2; O2SAT 94–99
[2023-08-09 12:00] LABS: BASOPHILS % (AUTO) 0.3 % (0.0-2.0); DIFFERENTIAL COMMENT 0; EOSINOPHILS # (AUTO) 0.1 K/uL (0.0-0.7); EOSINOPHILS % (AUTO) 0.6 % (0.0-7.0); LYMPHOCYTES # (AUTO) 1.1 K/uL (0.8-4.8); LYMPHOCYTES % (AUTO) 10.5 % (20.5-51.5); MEAN CORPUSCULAR HEMOGLOBIN 27.1 uug (23.8-33.4); MEAN CORPUSCULAR HGB CONC 33 g/dL (32.5-36.3); MEAN CORPUSCULAR VOLUME 81.6 fL (73.0-96.2); MONOCYTES # (AUTO) 0.4 K/uL (0.1-1.30); MONOCYTES % (AUTO) 4.3 % (0.0-11.0); NEUTROPHILS # (AUTO) 8.5 K/uL (1.8-8.9); NEUTROPHILS % (AUTO) 84.3 % (38.5-71.5); PLATELET COUNT (AUTO) 287 K/uL (152-348); RED BLOOD CELL COUNT(AUTO) 2.57 MIL/uL (4.06-5.63); RED CELL DISTRIBUTION WIDTH 18.6 % (12.1-16.2); WHITE BLOOD COUNT (AUTO) 10.1 K/uL (3.6-10.2)
[2023-08-09 12:01] LABS: ALANINE AMINOTRANSFERASE 16 U/L (16-63); ALBUMIN 1.6 g/dL (3.4-5.0); ALKALINE PHOSPHATASE 101 U/L (50-136); ASPARTATE AMINOTRANSFERASE 22 U/L (15-37); BILIRUBIN,TOTAL 0.5 mg/dL (0.2-1.0); CALCIUM 7.8 mg/dL (8.5-10.1); CARBON DIOXIDE 29 mmol/L (21-32); CHLORIDE 102 mmol/L (98-107); CREATININE 1.9 mg/dL (0.6-1.3); GLUCOSE 127 mg/dL (74-106); MAGNESIUM 1.7 mg/dL (1.8-2.4); PHOSPHOROUS 2.6 mg/dL (2.5-4.9); POTASSIUM 3.4 mmol/L (3.5-5.1); SODIUM SERUM 139 mmol/L (136-145); TOTAL PROTEIN, SERUM 6.5 g/dL (6.4-8.2); UREA NITROGEN, BLOOD 48 mg/dL (7-18)
[2023-08-09 12:02] LABS: HEMATOCRIT 20.9 % (36.7-47.1)
[2023-08-09] MEDS ORDERED: IPRATROPIUM BROMIDE 0.5 MG/2.5 ML NEBU ONE (23:04)
[2023-08-10] VITALS (12 sets, daily range): BP systolic 102–107; BP diastolic 60–68; TEMP 97.9–99.8; O2SAT 92–99
[2023-08-11] VITALS (16 sets, daily range): BP systolic 103–128; BP diastolic 62–78; TEMP 97.6–98.3; O2SAT 94–98
[2023-08-11 07:30] LABS: BASOPHILS # (AUTO) 0.1 K/UL (0.0-0.2); BASOPHILS % (AUTO) 0.5 % (0.0-2.0); EOSINOPHILS % (AUTO) 0.2 % (0.0-7.0); HEMATOCRIT 24.9 % (36.7-47.1); HEMOGLOBIN 8.2 g/dL (12.5-16.3); LYMPHOCYTES # (AUTO) 1.2 K/uL (0.8-4.8); LYMPHOCYTES % (AUTO) 10.1 % (20.5-51.5); MEAN CORPUSCULAR HEMOGLOBIN 26.8 uug (23.8-33.4); MEAN CORPUSCULAR HGB CONC 33 g/dL (32.5-36.3); MEAN CORPUSCULAR VOLUME 81.9 fL (73.0-96.2); MONOCYTES # (AUTO) 0.6 K/uL (0.1-1.30); MONOCYTES % (AUTO) 5.1 % (0.0-11.0); NEUTROPHILS # (AUTO) 10.4 K/uL (1.8-8.9); NEUTROPHILS % (AUTO) 84.1 % (38.5-71.5); PLATELET COUNT (AUTO) 295 K/uL (152-348); RED BLOOD CELL COUNT(AUTO) 3.05 MIL/uL (4.06-5.63); WHITE BLOOD COUNT (AUTO) 12.4 K/uL (3.6-10.2)
[2023-08-11 07:43] LABS: CALCIUM 7.9 mg/dL (8.5-10.1); CARBON DIOXIDE 31 mmol/L (21-32); CHLORIDE 100 mmol/L (98-107); CREATININE 1.7 mg/dL (0.6-1.3); GLUCOSE 168 mg/dL (74-106); POTASSIUM 3.3 mmol/L (3.5-5.1); SODIUM SERUM 140 mmol/L (136-145); UREA NITROGEN, BLOOD 37 mg/dL (7-18)
[2023-08-11 07:47] LABS: DIFFERENTIAL COMMENT 1
[2023-08-11] MEDS ORDERED: PANT40SU2 GT (11:33)
[2023-08-11] MEDS ORDERED: NUTR1PAC14 GT (11:33)
[2023-08-11] MEDS ORDERED: LEVO25TA9 PO (11:33)
[2023-08-11] MEDS ORDERED: AMIO200T6 PO (11:33)
[2023-08-11] MEDS ORDERED: METO25TA6 PO (11:33)
[2023-08-11] MEDS ORDERED: BUME1TAB8 PO (11:33)
[2023-08-11] MEDS ORDERED: Nepro GT (11:33)
[2023-08-11] MEDS ORDERED: DAPA5TAB PO (11:35)
[2023-08-11] MEDS: POTASSIUM CHLORIDE 20 MEQ POWDER PACKET GT ONE (12:30)
[2023-08-12] VITALS (11 sets, daily range): BP systolic 103–118; BP diastolic 60–69; TEMP 97.8–99; O2SAT 92–99
[2023-08-12 07:23] LABS: BASOPHILS % (AUTO) 0.2 % (0.0-2.0); EOSINOPHILS % (AUTO) 0.1 % (0.0-7.0); HEMATOCRIT 21.3 % (36.7-47.1); LYMPHOCYTES # (AUTO) 1.3 K/uL (0.8-4.8); LYMPHOCYTES % (AUTO) 10.9 % (20.5-51.5); MEAN CORPUSCULAR HEMOGLOBIN 27.2 uug (23.8-33.4); MEAN CORPUSCULAR HGB CONC 34 g/dL (32.5-36.3); MEAN CORPUSCULAR VOLUME 81.1 fL (73.0-96.2); MONOCYTES # (AUTO) 0.4 K/uL (0.1-1.30); MONOCYTES % (AUTO) 3.5 % (0.0-11.0); NEUTROPHILS # (AUTO) 10.5 K/uL (1.8-8.9); NEUTROPHILS % (AUTO) 85.3 % (38.5-71.5); PLATELET COUNT (AUTO) 330 K/uL (152-348); RED BLOOD CELL COUNT(AUTO) 2.63 MIL/uL (4.06-5.63); RED CELL DISTRIBUTION WIDTH 17.4 % (12.1-16.2); WHITE BLOOD COUNT (AUTO) 12.3 K/uL (3.6-10.2)
[2023-08-12 07:29] LABS: DIFFERENTIAL COMMENT 1; HEMOGLOBIN 7.1 g/dL (12.5-16.3)
[2023-08-12] MEDS: CELLULOSE,OXIDIZED 4X8 MC ONE (07:30)
[2023-08-12 07:43] LABS: CALCIUM 7.9 mg/dL (8.5-10.1); CARBON DIOXIDE 30 mmol/L (21-32); CHLORIDE 100 mmol/L (98-107); CREATININE 2.4 mg/dL (0.6-1.3); GLUCOSE 206 mg/dL (74-106); MAGNESIUM 1.8 mg/dL (1.8-2.4); PHOSPHOROUS 1.7 mg/dL (2.5-4.9); POTASSIUM 3.3 mmol/L (3.5-5.1); SODIUM SERUM 138 mmol/L (136-145); UREA NITROGEN, BLOOD 70 mg/dL (7-18)
[2023-08-12] MEDS: POTASSIUM CHLORIDE 20 MEQ POWDER PACKET GT ONE (09:47)
[2023-08-13] VITALS (11 sets, daily range): BP systolic 101–110; BP diastolic 58–65; TEMP 97.6–99.8; O2SAT 94–99
[2023-08-13 06:25] LABS: BASOPHILS % (AUTO) 0.1 % (0.0-2.0); EOSINOPHILS % (AUTO) 0.1 % (0.0-7.0); LYMPHOCYTES # (AUTO) 1.4 K/uL (0.8-4.8); LYMPHOCYTES % (AUTO) 10.6 % (20.5-51.5); MEAN CORPUSCULAR HEMOGLOBIN 27.2 uug (23.8-33.4); MEAN CORPUSCULAR HGB CONC 33 g/dL (32.5-36.3); MEAN CORPUSCULAR VOLUME 81.4 fL (73.0-96.2); MONOCYTES # (AUTO) 0.5 K/uL (0.1-1.30); MONOCYTES % (AUTO) 3.4 % (0.0-11.0); NEUTROPHILS # (AUTO) 11.5 K/uL (1.8-8.9); NEUTROPHILS % (AUTO) 85.8 % (38.5-71.5); PLATELET COUNT (AUTO) 389 K/uL (152-348); RED BLOOD CELL COUNT(AUTO) 2.95 MIL/uL (4.06-5.63); RED CELL DISTRIBUTION WIDTH 17.8 % (12.1-16.2); WHITE BLOOD COUNT (AUTO) 13.5 K/uL (3.6-10.2)
[2023-08-13 06:30] LABS: DIFFERENTIAL COMMENT 1
[2023-08-13 06:34] LABS: CALCIUM 8.1 mg/dL (8.5-10.1); CARBON DIOXIDE 32 mmol/L (21-32); CHLORIDE 99 mmol/L (98-107); CREATININE 1.9 mg/dL (0.6-1.3); GLUCOSE 171 mg/dL (74-106); MAGNESIUM 1.8 mg/dL (1.8-2.4); PHOSPHOROUS 1.6 mg/dL (2.5-4.9); POTASSIUM 3.4 mmol/L (3.5-5.1); SODIUM SERUM 139 mmol/L (136-145); UREA NITROGEN, BLOOD 48 mg/dL (7-18)
[2023-08-13] MEDS ORDERED: POTASSIUM CHLORIDE 10 MEQ TAB.PRT.SR PO ONE (14:30)
[2023-08-13] MEDS: POTASSIUM CHLORIDE 20 MEQ POWDER PACKET GT ONE (15:13)
[2023-08-13] MEDS: LIDOCAINE 2%-EPI 1:100,000 20 ML VIAL IJ ONE (15:14)
[2023-08-13] MEDS ORDERED: NEUTRA PHOS PACKET PO ONE (16:00)
[2023-08-13] MEDS ORDERED: CEFEPIME HCL 2 GM in IV DEXTROSE 5% 100 ML IV SCH (17:45)
[2023-08-13] MEDS: IV LACTATED RINGERS SOLUTION 1,000 ML IV SCH (17:46)
[2023-08-13] MEDS: VANCOMYCIN IV 1,000 MG in IV DEXTROSE 5% 250 ML IV ONE (18:24)
[2023-08-13] MEDS: DEXTROSE 5% IV ONE (18:24)
[2023-08-13] MEDS: SODIUM PHOSPHATE MM IV ONE (18:24)
[2023-08-13 19:27] LABS: *BLOOD, URINE 3+ (NEGATIVE); *CLARITY,URINE CLOUDY (CLEAR); *COLOR,URINE YELLOW (YELLOW); *KETONES,URINE 1+ (NEGATIVE); *UROBILINOGEN,URINE 0.2 E.U./dl (NORMAL); LEUKOCYTE ESTERASE ,URINE 3+ (NEGATIVE); NITRITE, URINE NEGATIVE (NEGATIVE); UGLUCOSE NEGATIVE (NEGATIVE)
[2023-08-13 19:32] LABS: *BILIRUBIN,URIN 2+ (NEGATIVE); *PROTEIN,URINE 3+ (NEGATIVE)
[2023-08-13 19:38] LABS: BACTERIA,URINE MODERATE /HPF (NONE SEEN); RBC,URINE 50-80 /HPF (0-3); URINE AMORPHOUS URATE MODERATE /HPF; WBC,URINE TNTC /HPF (0-3); YEAST,URINE BUDDING YEAST /HPF (NONE SEEN)
[2023-08-13] MEDS: CEFEPIME HCL 2 GM in IV DEXTROSE 5% 100 ML IV SCH (20:33)
[2023-08-13] MEDS ORDERED: IPRATROPIUM BROMIDE 0.5 MG/2.5 ML NEBU ONE (22:54)
[2023-08-14] VITALS (10 sets, daily range): BP systolic 101–116; BP diastolic 63–76; TEMP 97.2–99.1; O2SAT 97–99
[2023-08-14 06:55] LABS: VANCOMYCIN,RANDOM 14.4 ug/mL (20.0-30.0)
[2023-08-14 09:22] LABS: C-REACTIVE PROTEIN 38.03 mg/dL (0.00-0.30)
[2023-08-14] MEDS: VANCOMYCIN HCL 750 MG in IV DEXTROSE 5% 250 ML IV ONE (13:51)
[2023-08-15] VITALS (11 sets, daily range): BP systolic 95–108; BP diastolic 42–57; TEMP 98.2–98.5; O2SAT 96–99
[2023-08-15] MEDS ORDERED: NEPRO 1000 ML GT PRN (02:00)
[2023-08-15 06:16] LABS: BASOPHILS # (AUTO) 0.1 K/UL (0.0-0.2); BASOPHILS % (AUTO) 0.6 % (0.0-2.0); EOSINOPHILS % (AUTO) 0.1 % (0.0-7.0); HEMATOCRIT 23.9 % (36.7-47.1); HEMOGLOBIN 7.5 g/dL (12.5-16.3); LYMPHOCYTES % (AUTO) 5.7 % (20.5-51.5); MEAN CORPUSCULAR HEMOGLOBIN 26.7 uug (23.8-33.4); MEAN CORPUSCULAR HGB CONC 32 g/dL (32.5-36.3); MEAN CORPUSCULAR VOLUME 84.9 fL (73.0-96.2); MONOCYTES # (AUTO) 0.8 K/uL (0.1-1.30); MONOCYTES % (AUTO) 4.6 % (0.0-11.0); NEUTROPHILS # (AUTO) 15.1 K/uL (1.8-8.9); PLATELET COUNT (AUTO) 362 K/uL (152-348); RED BLOOD CELL COUNT(AUTO) 2.82 MIL/uL (4.06-5.63); RED CELL DISTRIBUTION WIDTH 18.4 % (12.1-16.2)
[2023-08-15 06:26] LABS: DIFFERENTIAL COMMENT 1
[2023-08-15 06:39] LABS: CALCIUM 8.4 mg/dL (8.5-10.1); CARBON DIOXIDE 26 mmol/L (21-32); CHLORIDE 106 mmol/L (98-107); GLUCOSE 145 mg/dL (74-106); PHOSPHOROUS 2.5 mg/dL (2.5-4.9); POTASSIUM 3.8 mmol/L (3.5-5.1); SODIUM SERUM 142 mmol/L (136-145); UREA NITROGEN, BLOOD 39 mg/dL (7-18)
[2023-08-15] MEDS: NEPRO 1000 ML GT PRN (08:33)
[2023-08-15] MEDS ORDERED: DIATR MEGLU/DIATRIZOATE SODIUM 30 ML BOTTLE ONE ×3 (12:35→20:08)
[2023-08-15] MEDS ORDERED: METOCLOPRAMIDE HCL 10 MG TABLET GT SCH (17:00)
[2023-08-15] MEDS: METOCLOPRAMIDE HCL 5 MG TABLET PO SCH (17:15)
[2023-08-16] VITALS (10 sets, daily range): BP systolic 107–119; BP diastolic 52–64; TEMP 97.7–98.7; O2SAT 93–99
[2023-08-16 08:13] LABS: BASOPHILS % (AUTO) 0.3 % (0.0-2.0); EOSINOPHILS % (AUTO) 0.3 % (0.0-7.0); HEMATOCRIT 21.3 % (36.7-47.1); LYMPHOCYTES % (AUTO) 7.1 % (20.5-51.5); MEAN CORPUSCULAR HEMOGLOBIN 26.4 uug (23.8-33.4); MEAN CORPUSCULAR HGB CONC 32 g/dL (32.5-36.3); MEAN CORPUSCULAR VOLUME 82.4 fL (73.0-96.2); MONOCYTES # (AUTO) 0.5 K/uL (0.1-1.30); MONOCYTES % (AUTO) 3.8 % (0.0-11.0); NEUTROPHILS # (AUTO) 12.4 K/uL (1.8-8.9); NEUTROPHILS % (AUTO) 88.5 % (38.5-71.5); PLATELET COUNT (AUTO) 397 K/uL (152-348); RED BLOOD CELL COUNT(AUTO) 2.59 MIL/uL (4.06-5.63); RED CELL DISTRIBUTION WIDTH 18.4 % (12.1-16.2)
[2023-08-16 08:43] LABS: CALCIUM 8.7 mg/dL (8.5-10.1); CARBON DIOXIDE 28 mmol/L (21-32); CHLORIDE 107 mmol/L (98-107); CREATININE 2.8 mg/dL (0.6-1.3); GLUCOSE 173 mg/dL (74-106); MAGNESIUM 2.1 mg/dL (1.8-2.4); PHOSPHOROUS 2.5 mg/dL (2.5-4.9); POTASSIUM 3.3 mmol/L (3.5-5.1); SODIUM SERUM 143 mmol/L (136-145); UREA NITROGEN, BLOOD 56 mg/dL (7-18); VANCOMYCIN,RANDOM 19.2 ug/mL (20.0-30.0)
[2023-08-16 08:50] LABS: DIFFERENTIAL COMMENT 1; HEMOGLOBIN 6.8 g/dL (12.5-16.3)
[2023-08-16 09:14] LABS: NEUTROPHILS % (MANUAL) 0 % (42-75)
[2023-08-16 09:15] LABS: LYMPHOCYTES % (MANUAL) 0 % (20-40)
[2023-08-16] MEDS ORDERED: ALBUMIN HUMAN 25% 100 ML IV ONE (09:30)
[2023-08-16] MEDS: MEROPENEM 1 G in IV NORMAL SALINE 100 ML IV SCH (13:34)
[2023-08-16] MEDS ORDERED: DIATR MEGLU/DIATRIZOATE SODIUM 30 ML BOTTLE ONE (14:03)
[2023-08-16] MEDS: VANCOMYCIN HCL 750 MG in IV DEXTROSE 5% 250 ML IV ONE (14:58)
[2023-08-16] MEDS ORDERED: CEFEPIME HCL 1 G in IV DEXTROSE 5% 50 ML IV SCH (21:00)
[2023-08-16] MEDS ORDERED: MEROPENEM 1 G in IV NORMAL SALINE 100 ML IV SCH (21:00)
[2023-08-17] VITALS (8 sets, daily range): BP systolic 116–133; BP diastolic 48–60; TEMP 97.8–99.6; O2SAT 94–100
[2023-08-17 06:30] LABS: BASOPHILS # (AUTO) 0.1 K/UL (0.0-0.2); BASOPHILS % (AUTO) 0.4 % (0.0-2.0); EOSINOPHILS % (AUTO) 0.1 % (0.0-7.0); HEMATOCRIT 24.7 % (36.7-47.1); HEMOGLOBIN 7.7 g/dL (12.5-16.3); LYMPHOCYTES # (AUTO) 1.2 K/uL (0.8-4.8); LYMPHOCYTES % (AUTO) 7.9 % (20.5-51.5); MEAN CORPUSCULAR HEMOGLOBIN 26.2 uug (23.8-33.4); MEAN CORPUSCULAR HGB CONC 31 g/dL (32.5-36.3); MEAN CORPUSCULAR VOLUME 84.1 fL (73.0-96.2); MONOCYTES # (AUTO) 0.6 K/uL (0.1-1.30); NEUTROPHILS # (AUTO) 13.7 K/uL (1.8-8.9); NEUTROPHILS % (AUTO) 87.6 % (38.5-71.5); PLATELET COUNT (AUTO) 399 K/uL (152-348); RED BLOOD CELL COUNT(AUTO) 2.93 MIL/uL (4.06-5.63); WHITE BLOOD COUNT (AUTO) 15.7 K/uL (3.6-10.2)
[2023-08-17 06:40] LABS: DIFFERENTIAL COMMENT 1
[2023-08-17 06:47] LABS: CALCIUM 8.9 mg/dL (8.5-10.1); CARBON DIOXIDE 21 mmol/L (21-32); CHLORIDE 108 mmol/L (98-107); CREATININE 2.1 mg/dL (0.6-1.3); GLUCOSE 157 mg/dL (74-106); MAGNESIUM 2.4 mg/dL (1.8-2.4); PHOSPHOROUS 1.6 mg/dL (2.5-4.9); POTASSIUM 3.7 mmol/L (3.5-5.1); SODIUM SERUM 142 mmol/L (136-145); UREA NITROGEN, BLOOD 36 mg/dL (7-18)
[2023-08-17] MEDS: NEUTRA PHOS PACKET PO ONE (16:22)
[2023-08-17] MEDS: VANCOMYCIN FOR PO/GT/NG USE PO SCH (17:25)
[2023-08-18] VITALS (10 sets, daily range): BP systolic 100–122; BP diastolic 53–67; TEMP 97.2–98.3; O2SAT 96–99
[2023-08-18 07:23] LABS: BASOPHILS % (AUTO) 0.1 % (0.0-2.0); DIFFERENTIAL COMMENT 0; EOSINOPHILS % (AUTO) 0.2 % (0.0-7.0); HEMATOCRIT 23.5 % (36.7-47.1); HEMOGLOBIN 7.5 g/dL (12.5-16.3); LYMPHOCYTES % (AUTO) 6.7 % (20.5-51.5); MEAN CORPUSCULAR HEMOGLOBIN 26.4 uug (23.8-33.4); MEAN CORPUSCULAR HGB CONC 32 g/dL (32.5-36.3); MEAN CORPUSCULAR VOLUME 82.3 fL (73.0-96.2); MONOCYTES # (AUTO) 0.5 K/uL (0.1-1.30); MONOCYTES % (AUTO) 3.6 % (0.0-11.0); NEUTROPHILS # (AUTO) 13.1 K/uL (1.8-8.9); NEUTROPHILS % (AUTO) 89.4 % (38.5-71.5); PLATELET COUNT (AUTO) 430 K/uL (152-348); RED BLOOD CELL COUNT(AUTO) 2.85 MIL/uL (4.06-5.63); WHITE BLOOD COUNT (AUTO) 14.7 K/uL (3.6-10.2)
[2023-08-18 07:25] LABS: CALCIUM 8.8 mg/dL (8.5-10.1); CARBON DIOXIDE 28 mmol/L (21-32); CHLORIDE 110 mmol/L (98-107); CREATININE 2.7 mg/dL (0.6-1.3); GLUCOSE 174 mg/dL (74-106); MAGNESIUM 2.1 mg/dL (1.8-2.4); PHOSPHOROUS 1.9 mg/dL (2.5-4.9); POTASSIUM 3.5 mmol/L (3.5-5.1); SODIUM SERUM 146 mmol/L (136-145); UREA NITROGEN, BLOOD 47 mg/dL (7-18)
[2023-08-18 08:20] LABS: VANCOMYCIN,RANDOM 21.2 ug/mL (20.0-30.0)
[2023-08-18] MEDS ORDERED: IPRATROPIUM BROMIDE 0.5 MG/2.5 ML NEBU ONE ×2 (15:09→23:36)
[2023-08-19] VITALS (15 sets, daily range): BP systolic 107–127; BP diastolic 58–72; TEMP 97.8–98.6; O2SAT 95–99
[2023-08-19 07:48] LABS: BASOPHILS % (AUTO) 0.1 % (0.0-2.0); EOSINOPHILS % (AUTO) 0.3 % (0.0-7.0); HEMOGLOBIN 7.5 g/dL (12.5-16.3); LYMPHOCYTES # (AUTO) 1.3 K/uL (0.8-4.8); LYMPHOCYTES % (AUTO) 8.7 % (20.5-51.5); MEAN CORPUSCULAR HEMOGLOBIN 26.6 uug (23.8-33.4); MEAN CORPUSCULAR HGB CONC 33 g/dL (32.5-36.3); MEAN CORPUSCULAR VOLUME 81.9 fL (73.0-96.2); MONOCYTES # (AUTO) 0.6 K/uL (0.1-1.30); MONOCYTES % (AUTO) 3.9 % (0.0-11.0); NEUTROPHILS # (AUTO) 13.4 K/uL (1.8-8.9); PLATELET COUNT (AUTO) 449 K/uL (152-348); RED BLOOD CELL COUNT(AUTO) 2.81 MIL/uL (4.06-5.63); RED CELL DISTRIBUTION WIDTH 19.3 % (12.1-16.2); WHITE BLOOD COUNT (AUTO) 15.4 K/uL (3.6-10.2)
[2023-08-19 07:54] LABS: CALCIUM 8.7 mg/dL (8.5-10.1); CARBON DIOXIDE 26 mmol/L (21-32); CHLORIDE 109 mmol/L (98-107); CREATININE 2.3 mg/dL (0.6-1.3); GLUCOSE 178 mg/dL (74-106); POTASSIUM 3.5 mmol/L (3.5-5.1); SODIUM SERUM 144 mmol/L (136-145); UREA NITROGEN, BLOOD 38 mg/dL (7-18)
[2023-08-19 08:00] LABS: DIFFERENTIAL COMMENT 1
[2023-08-20] VITALS (12 sets, daily range): BP systolic 103–130; BP diastolic 58–75; TEMP 97.7–100; O2SAT 96–100
[2023-08-20 06:41] LABS: BASOPHILS % (AUTO) 0.1 % (0.0-2.0); EOSINOPHILS # (AUTO) 0.1 K/uL (0.0-0.7); EOSINOPHILS % (AUTO) 0.7 % (0.0-7.0); HEMATOCRIT 22.8 % (36.7-47.1); LYMPHOCYTES # (AUTO) 1.1 K/uL (0.8-4.8); LYMPHOCYTES % (AUTO) 7.2 % (20.5-51.5); MEAN CORPUSCULAR HGB CONC 33 g/dL (32.5-36.3); MEAN CORPUSCULAR VOLUME 82.8 fL (73.0-96.2); MONOCYTES # (AUTO) 0.6 K/uL (0.1-1.30); MONOCYTES % (AUTO) 3.9 % (0.0-11.0); NEUTROPHILS % (AUTO) 88.1 % (38.5-71.5); PLATELET COUNT (AUTO) 396 K/uL (152-348); RED BLOOD CELL COUNT(AUTO) 2.75 MIL/uL (4.06-5.63); RED CELL DISTRIBUTION WIDTH 19.3 % (12.1-16.2); WHITE BLOOD COUNT (AUTO) 14.8 K/uL (3.6-10.2)
[2023-08-20 06:43] LABS: CALCIUM 8.9 mg/dL (8.5-10.1); CARBON DIOXIDE 26 mmol/L (21-32); CHLORIDE 109 mmol/L (98-107); CREATININE 2.9 mg/dL (0.6-1.3); GLUCOSE 189 mg/dL (74-106); POTASSIUM 3.6 mmol/L (3.5-5.1); SODIUM SERUM 138 mmol/L (136-145); UREA NITROGEN, BLOOD 56 mg/dL (7-18)
[2023-08-20 07:17] LABS: DIFFERENTIAL COMMENT 1; HEMOGLOBIN 7.4 g/dL (12.5-16.3)
[2023-08-21] VITALS (12 sets, daily range): BP systolic 99–129; BP diastolic 40–57; TEMP 97.7–100.7; O2SAT 93–100
[2023-08-21 06:35] LABS: BASOPHILS % (AUTO) 0.2 % (0.0-2.0); EOSINOPHILS # (AUTO) 0.1 K/uL (0.0-0.7); EOSINOPHILS % (AUTO) 0.6 % (0.0-7.0); HEMATOCRIT 22.7 % (36.7-47.1); LYMPHOCYTES # (AUTO) 1.7 K/uL (0.8-4.8); LYMPHOCYTES % (AUTO) 10.4 % (20.5-51.5); MEAN CORPUSCULAR HEMOGLOBIN 26.6 uug (23.8-33.4); MEAN CORPUSCULAR HGB CONC 32 g/dL (32.5-36.3); MEAN CORPUSCULAR VOLUME 82.8 fL (73.0-96.2); MONOCYTES # (AUTO) 0.6 K/uL (0.1-1.30); MONOCYTES % (AUTO) 3.9 % (0.0-11.0); NEUTROPHILS # (AUTO) 13.8 K/uL (1.8-8.9); NEUTROPHILS % (AUTO) 84.9 % (38.5-71.5); PLATELET COUNT (AUTO) 372 K/uL (152-348); RED BLOOD CELL COUNT(AUTO) 2.74 MIL/uL (4.06-5.63); RED CELL DISTRIBUTION WIDTH 19.3 % (12.1-16.2); WHITE BLOOD COUNT (AUTO) 16.3 K/uL (3.6-10.2)
[2023-08-21 06:47] LABS: DIFFERENTIAL COMMENT 1; HEMOGLOBIN 7.3 g/dL (12.5-16.3)
[2023-08-21 06:59] LABS: CALCIUM 9.1 mg/dL (8.5-10.1); CARBON DIOXIDE 26 mmol/L (21-32); CHLORIDE 108 mmol/L (98-107); CREATININE 2.3 mg/dL (0.6-1.3); GLUCOSE 129 mg/dL (74-106); POTASSIUM 3.5 mmol/L (3.5-5.1); SODIUM SERUM 143 mmol/L (136-145); UREA NITROGEN, BLOOD 41 mg/dL (7-18)
[2023-08-21] MEDS: CELLULOSE,OXIDIZED 4X8 MC ONE (13:10)
[2023-08-21] MEDS: LIDOCAINE 1%-EPI 1:100,000 20 ML VIAL IJ ONE (13:10)
[2023-08-22] VITALS (14 sets, daily range): BP systolic 105–138; BP diastolic 45–68; TEMP 97.6–99.5; O2SAT 96–99
[2023-08-22] MEDS ORDERED: IPRATROPIUM BROMIDE 0.5 MG/2.5 ML NEBU ONE ×2 (00:21→23:34)
[2023-08-22 06:28] LABS: BASOPHILS % (AUTO) 0.2 % (0.0-2.0); EOSINOPHILS # (AUTO) 0.1 K/uL (0.0-0.7); EOSINOPHILS % (AUTO) 0.7 % (0.0-7.0); HEMATOCRIT 24.8 % (36.7-47.1); HEMOGLOBIN 7.8 g/dL (12.5-16.3); LYMPHOCYTES # (AUTO) 1.8 K/uL (0.8-4.8); LYMPHOCYTES % (AUTO) 10.8 % (20.5-51.5); MEAN CORPUSCULAR HEMOGLOBIN 26.3 uug (23.8-33.4); MEAN CORPUSCULAR HGB CONC 32 g/dL (32.5-36.3); MEAN CORPUSCULAR VOLUME 83.4 fL (73.0-96.2); MONOCYTES # (AUTO) 0.7 K/uL (0.1-1.30); MONOCYTES % (AUTO) 4.4 % (0.0-11.0); NEUTROPHILS # (AUTO) 14.1 K/uL (1.8-8.9); NEUTROPHILS % (AUTO) 83.9 % (38.5-71.5); PLATELET COUNT (AUTO) 384 K/uL (152-348); RED BLOOD CELL COUNT(AUTO) 2.97 MIL/uL (4.06-5.63); RED CELL DISTRIBUTION WIDTH 19.4 % (12.1-16.2); WHITE BLOOD COUNT (AUTO) 16.9 K/uL (3.6-10.2)
[2023-08-22 06:54] LABS: CALCIUM 9.2 mg/dL (8.5-10.1); CARBON DIOXIDE 29 mmol/L (21-32); CHLORIDE 107 mmol/L (98-107); GLUCOSE 125 mg/dL (74-106); POTASSIUM 3.9 mmol/L (3.5-5.1); SODIUM SERUM 143 mmol/L (136-145); UREA NITROGEN, BLOOD 63 mg/dL (7-18)
[2023-08-22 06:58] LABS: DIFFERENTIAL COMMENT 1
[2023-08-23] VITALS (15 sets, daily range): BP systolic 112–126; BP diastolic 53–63; TEMP 97.8–98.8; O2SAT 94–99
[2023-08-23 06:40] LABS: BASOPHILS # (AUTO) 0.1 K/UL (0.0-0.2); BASOPHILS % (AUTO) 0.4 % (0.0-2.0); EOSINOPHILS # (AUTO) 0.1 K/uL (0.0-0.7); EOSINOPHILS % (AUTO) 0.8 % (0.0-7.0); HEMATOCRIT 25.2 % (36.7-47.1); LYMPHOCYTES # (AUTO) 1.6 K/uL (0.8-4.8); LYMPHOCYTES % (AUTO) 10.7 % (20.5-51.5); MEAN CORPUSCULAR HEMOGLOBIN 25.8 uug (23.8-33.4); MEAN CORPUSCULAR HGB CONC 32 g/dL (32.5-36.3); MEAN CORPUSCULAR VOLUME 81.6 fL (73.0-96.2); MONOCYTES # (AUTO) 0.5 K/uL (0.1-1.30); MONOCYTES % (AUTO) 3.5 % (0.0-11.0); NEUTROPHILS % (AUTO) 84.6 % (38.5-71.5); PLATELET COUNT (AUTO) 374 K/uL (152-348); RED BLOOD CELL COUNT(AUTO) 3.09 MIL/uL (4.06-5.63); RED CELL DISTRIBUTION WIDTH 19.5 % (12.1-16.2); WHITE BLOOD COUNT (AUTO) 15.3 K/uL (3.6-10.2)
[2023-08-23 06:45] LABS: CALCIUM 8.6 mg/dL (8.5-10.1); CARBON DIOXIDE 31 mmol/L (21-32); CHLORIDE 102 mmol/L (98-107); CREATININE 2.5 mg/dL (0.6-1.3); GLUCOSE 147 mg/dL (74-106); POTASSIUM 3.5 mmol/L (3.5-5.1); SODIUM SERUM 141 mmol/L (136-145); UREA NITROGEN, BLOOD 46 mg/dL (7-18)
[2023-08-23 06:48] LABS: DIFFERENTIAL COMMENT 1
[2023-08-23] MEDS ORDERED: IPRATROPIUM BROMIDE 0.5 MG/2.5 ML NEBU ONE (22:56)
[2023-08-24] VITALS (12 sets, daily range): BP systolic 98–125; BP diastolic 50–67; TEMP 97.4–99.5; O2SAT 93–99
[2023-08-24 06:42] LABS: CARBON DIOXIDE 31 mmol/L (21-32); CHLORIDE 105 mmol/L (98-107); CREATININE 3.2 mg/dL (0.6-1.3); GLUCOSE 195 mg/dL (74-106); POTASSIUM 3.7 mmol/L (3.5-5.1); SODIUM SERUM 143 mmol/L (136-145); UREA NITROGEN, BLOOD 60 mg/dL (7-18)
[2023-08-24 06:46] LABS: BASOPHILS % (AUTO) 0.2 % (0.0-2.0); EOSINOPHILS # (AUTO) 0.1 K/uL (0.0-0.7); EOSINOPHILS % (AUTO) 0.4 % (0.0-7.0); HEMATOCRIT 23.4 % (36.7-47.1); HEMOGLOBIN 7.7 g/dL (12.5-16.3); LYMPHOCYTES # (AUTO) 1.7 K/uL (0.8-4.8); LYMPHOCYTES % (AUTO) 10.7 % (20.5-51.5); MEAN CORPUSCULAR HGB CONC 33 g/dL (32.5-36.3); MEAN CORPUSCULAR VOLUME 82.1 fL (73.0-96.2); MONOCYTES # (AUTO) 0.6 K/uL (0.1-1.30); MONOCYTES % (AUTO) 4.1 % (0.0-11.0); NEUTROPHILS # (AUTO) 13.3 K/uL (1.8-8.9); NEUTROPHILS % (AUTO) 84.6 % (38.5-71.5); PLATELET COUNT (AUTO) 373 K/uL (152-348); RED BLOOD CELL COUNT(AUTO) 2.85 MIL/uL (4.06-5.63); RED CELL DISTRIBUTION WIDTH 18.8 % (12.1-16.2); WHITE BLOOD COUNT (AUTO) 15.7 K/uL (3.6-10.2)
[2023-08-24 06:58] LABS: DIFFERENTIAL COMMENT 1
[2023-08-24] MEDS: SILVER NITRATE APPLICATOR STICK EACH TP ONE (13:30)
[2023-08-24] MEDS ORDERED: CELLULOSE,OXIDIZED 4X8 MC SCH (13:30)
[2023-08-25] VITALS (13 sets, daily range): BP systolic 84–102; BP diastolic 41–54; TEMP 97.4–98.3; O2SAT 82–99
[2023-08-25] MEDS: HYDROCODONE/APAP 10-325 MG TABLET PO PRN (00:36)
[2023-08-25 07:12] LABS: BASOPHILS % (AUTO) 0.2 % (0.0-2.0); DIFFERENTIAL COMMENT 0; EOSINOPHILS # (AUTO) 0.1 K/uL (0.0-0.7); EOSINOPHILS % (AUTO) 0.7 % (0.0-7.0); HEMATOCRIT 21.5 % (36.7-47.1); LYMPHOCYTES # (AUTO) 1.3 K/uL (0.8-4.8); LYMPHOCYTES % (AUTO) 8.4 % (20.5-51.5); MEAN CORPUSCULAR HEMOGLOBIN 26.1 uug (23.8-33.4); MEAN CORPUSCULAR HGB CONC 32 g/dL (32.5-36.3); MEAN CORPUSCULAR VOLUME 80.6 fL (73.0-96.2); MONOCYTES # (AUTO) 0.7 K/uL (0.1-1.30); MONOCYTES % (AUTO) 4.2 % (0.0-11.0); NEUTROPHILS # (AUTO) 13.5 K/uL (1.8-8.9); NEUTROPHILS % (AUTO) 86.5 % (38.5-71.5); PLATELET COUNT (AUTO) 325 K/uL (152-348); RED BLOOD CELL COUNT(AUTO) 2.67 MIL/uL (4.06-5.63); RED CELL DISTRIBUTION WIDTH 19.5 % (12.1-16.2); WHITE BLOOD COUNT (AUTO) 15.5 K/uL (3.6-10.2)
[2023-08-25 07:13] LABS: CALCIUM 8.5 mg/dL (8.5-10.1); CARBON DIOXIDE 35 mmol/L (21-32); CHLORIDE 104 mmol/L (98-107); CREATININE 2.6 mg/dL (0.6-1.3); GLUCOSE 148 mg/dL (74-106); POTASSIUM 3.4 mmol/L (3.5-5.1); SODIUM SERUM 142 mmol/L (136-145); UREA NITROGEN, BLOOD 44 mg/dL (7-18)
[2023-08-25] MEDS: HYDROCODONE/APAP 10-325 MG TABLET PO SCH (09:00)
[2023-08-25 11:56] LABS: ABG PCO2 29.4 mmHg (35.0-48.0); ABG PH 7.596 (7.340-7.440); ABG PO2 110.6 mmHg (75.0-100.0); ABG SITE RIGHT BRACHIAL; AaDO2 98.7 mmHg
[2023-08-25] MEDS: LIDOCAINE 1%-EPI 1:100,000 20 ML VIAL IJ ONE (14:13)
[2023-08-25] MEDS: POTASSIUM CHLORIDE 20 MEQ POWDER PACKET GT ONE (15:14)
[2023-08-25] MEDS: MEDIHONEY= THERAHONEY 1.5 OZ TUBE TOP SCH (16:07)
[2023-08-26] VITALS (15 sets, daily range): BP systolic 93–113; BP diastolic 42–63; TEMP 97.2–98.5; O2SAT 94–100
[2023-08-26 06:56] LABS: BASOPHILS % (AUTO) 0.2 % (0.0-2.0); EOSINOPHILS # (AUTO) 0.1 K/uL (0.0-0.7); EOSINOPHILS % (AUTO) 0.5 % (0.0-7.0); HEMOGLOBIN 7.5 g/dL (12.5-16.3); LYMPHOCYTES # (AUTO) 1.4 K/uL (0.8-4.8); LYMPHOCYTES % (AUTO) 8.8 % (20.5-51.5); MEAN CORPUSCULAR HEMOGLOBIN 26.2 uug (23.8-33.4); MEAN CORPUSCULAR HGB CONC 33 g/dL (32.5-36.3); MEAN CORPUSCULAR VOLUME 80.6 fL (73.0-96.2); MONOCYTES # (AUTO) 0.6 K/uL (0.1-1.30); MONOCYTES % (AUTO) 3.8 % (0.0-11.0); NEUTROPHILS # (AUTO) 14.1 K/uL (1.8-8.9); NEUTROPHILS % (AUTO) 86.7 % (38.5-71.5); PLATELET COUNT (AUTO) 371 K/uL (152-348); RED BLOOD CELL COUNT(AUTO) 2.86 MIL/uL (4.06-5.63); RED CELL DISTRIBUTION WIDTH 19.2 % (12.1-16.2); WHITE BLOOD COUNT (AUTO) 16.2 K/uL (3.6-10.2)
[2023-08-26 07:04] LABS: DIFFERENTIAL COMMENT 1
[2023-08-26 07:13] LABS: CALCIUM 8.6 mg/dL (8.5-10.1); CARBON DIOXIDE 31 mmol/L (21-32); CHLORIDE 101 mmol/L (98-107); CREATININE 3.4 mg/dL (0.6-1.3); GLUCOSE 218 mg/dL (74-106); MAGNESIUM 2.5 mg/dL (1.8-2.4); PHOSPHOROUS 2.2 mg/dL (2.5-4.9); POTASSIUM 4.1 mmol/L (3.5-5.1); SODIUM SERUM 138 mmol/L (136-145); UREA NITROGEN, BLOOD 61 mg/dL (7-18)
[2023-08-26] MEDS: ALTEPLASE 2 MG VIAL XX ONE (17:23)
[2023-08-27] VITALS (14 sets, daily range): BP systolic 97–115; BP diastolic 49–62; TEMP 97.4–98.8; O2SAT 94–100
[2023-08-27 10:16] LABS: BASOPHILS # (AUTO) 0.2 K/UL (0.0-0.2); BASOPHILS % (AUTO) 1.3 % (0.0-2.0); DIFFERENTIAL COMMENT 0; EOSINOPHILS # (AUTO) 0.1 K/uL (0.0-0.7); EOSINOPHILS % (AUTO) 0.4 % (0.0-7.0); LYMPHOCYTES # (AUTO) 1.8 K/uL (0.8-4.8); LYMPHOCYTES % (AUTO) 10.5 % (20.5-51.5); MEAN CORPUSCULAR HEMOGLOBIN 25.8 uug (23.8-33.4); MEAN CORPUSCULAR HGB CONC 32 g/dL (32.5-36.3); MEAN CORPUSCULAR VOLUME 80.4 fL (73.0-96.2); MONOCYTES # (AUTO) 0.6 K/uL (0.1-1.30); MONOCYTES % (AUTO) 3.6 % (0.0-11.0); NEUTROPHILS # (AUTO) 14.1 K/uL (1.8-8.9); NEUTROPHILS % (AUTO) 84.2 % (38.5-71.5); PLATELET COUNT (AUTO) 337 K/uL (152-348); RED CELL DISTRIBUTION WIDTH 19.4 % (12.1-16.2); WHITE BLOOD COUNT (AUTO) 16.7 K/uL (3.6-10.2)
[2023-08-27 10:20] LABS: HEMATOCRIT 19.5 % (36.7-47.1); RED BLOOD CELL COUNT(AUTO) 2.42 MIL/uL (4.06-5.63)
[2023-08-27 10:24] LABS: HEMOGLOBIN 6.2 g/dL (12.5-16.3)
[2023-08-27 13:54] LABS: LYMPHOCYTES % (MANUAL) 10 % (20-40); MONOCYTES % (MANUAL) 4 % (2-10); NEUTROPHILS % (MANUAL) 86 % (42-75); PLATELET ESTIMATE ADEQUATE
[2023-08-27 13:55] LABS: ANISOCYTOSIS 2+; HYPOCHROMASIA 1+
[2023-08-27 13:56] LABS: STOMATOCYTES 1+
[2023-08-27] MEDS ORDERED: IPRATROPIUM BROMIDE 0.5 MG/2.5 ML NEBU ONE (23:07)
[2023-08-28] VITALS (14 sets, daily range): BP systolic 80–98; BP diastolic 51–59; TEMP 97.6–98.6; O2SAT 91–100
[2023-08-28 07:00] LABS: BASOPHILS # (AUTO) 0.1 K/UL (0.0-0.2); BASOPHILS % (AUTO) 0.4 % (0.0-2.0); EOSINOPHILS % (AUTO) 0.2 % (0.0-7.0); LYMPHOCYTES # (AUTO) 2.1 K/uL (0.8-4.8); LYMPHOCYTES % (AUTO) 11.3 % (20.5-51.5); MEAN CORPUSCULAR HEMOGLOBIN 26.5 uug (23.8-33.4); MEAN CORPUSCULAR HGB CONC 33 g/dL (32.5-36.3); MEAN CORPUSCULAR VOLUME 80.5 fL (73.0-96.2); MONOCYTES # (AUTO) 0.7 K/uL (0.1-1.30); MONOCYTES % (AUTO) 3.8 % (0.0-11.0); NEUTROPHILS # (AUTO) 15.5 K/uL (1.8-8.9); NEUTROPHILS % (AUTO) 84.3 % (38.5-71.5); PLATELET COUNT (AUTO) 331 K/uL (152-348); RED CELL DISTRIBUTION WIDTH 19.4 % (12.1-16.2); WHITE BLOOD COUNT (AUTO) 18.4 K/uL (3.6-10.2)
[2023-08-28 07:12] LABS: CARBON DIOXIDE 30 mmol/L (21-32); CHLORIDE 102 mmol/L (98-107); CREATININE 4.3 mg/dL (0.6-1.3); DIFFERENTIAL COMMENT 1; GLUCOSE 178 mg/dL (74-106); MAGNESIUM 2.7 mg/dL (1.8-2.4); PHOSPHOROUS 2.7 mg/dL (2.5-4.9); POTASSIUM 4.7 mmol/L (3.5-5.1); SODIUM SERUM 139 mmol/L (136-145)
[2023-08-28 07:15] LABS: HEMATOCRIT 18.5 % (36.7-47.1); HEMOGLOBIN 6.1 g/dL (12.5-16.3)
[2023-08-28 07:16] LABS: UREA NITROGEN, BLOOD 96 mg/dL (7-18)
[2023-08-28 12:37] LABS: LYMPHOCYTES % (MANUAL) 12 % (20-40); MONOCYTES % (MANUAL) 2 % (2-10); NEUTROPHILS % (MANUAL) 86 % (42-75); PLATELET ESTIMATE ADEQUATE
[2023-08-28 12:38] LABS: ANISOCYTOSIS 2+
[2023-08-28 12:39] LABS: HYPOCHROMASIA 1+; OVALOCYTES 1+
[2023-08-29] VITALS (12 sets, daily range): BP systolic 90–98; BP diastolic 56–58; TEMP 97.4–99; O2SAT 85–100
[2023-08-29 06:20] LABS: BASOPHILS # (AUTO) 0.1 K/UL (0.0-0.2); BASOPHILS % (AUTO) 0.3 % (0.0-2.0); EOSINOPHILS % (AUTO) 0.2 % (0.0-7.0); LYMPHOCYTES # (AUTO) 1.4 K/uL (0.8-4.8); LYMPHOCYTES % (AUTO) 7.7 % (20.5-51.5); MEAN CORPUSCULAR HEMOGLOBIN 27.2 uug (23.8-33.4); MEAN CORPUSCULAR HGB CONC 34 g/dL (32.5-36.3); MEAN CORPUSCULAR VOLUME 79.8 fL (73.0-96.2); MONOCYTES # (AUTO) 0.7 K/uL (0.1-1.30); NEUTROPHILS # (AUTO) 16.2 K/uL (1.8-8.9); NEUTROPHILS % (AUTO) 87.8 % (38.5-71.5); PLATELET COUNT (AUTO) 338 K/uL (152-348); RED CELL DISTRIBUTION WIDTH 18.4 % (12.1-16.2); WHITE BLOOD COUNT (AUTO) 18.4 K/uL (3.6-10.2)
[2023-08-29 06:39] LABS: CALCIUM 8.8 mg/dL (8.5-10.1); CARBON DIOXIDE 32 mmol/L (21-32); CHLORIDE 100 mmol/L (98-107); CREATININE 3.4 mg/dL (0.6-1.3); GLUCOSE 198 mg/dL (74-106); MAGNESIUM 2.5 mg/dL (1.8-2.4); PHOSPHOROUS 2.5 mg/dL (2.5-4.9); POTASSIUM 4.2 mmol/L (3.5-5.1); SODIUM SERUM 140 mmol/L (136-145); UREA NITROGEN, BLOOD 71 mg/dL (7-18)
[2023-08-29 06:48] LABS: DIFFERENTIAL COMMENT 1; RED BLOOD CELL COUNT(AUTO) 2.47 MIL/uL (4.06-5.63)
[2023-08-29 06:50] LABS: HEMATOCRIT 19.7 % (36.7-47.1); HEMOGLOBIN 6.7 g/dL (12.5-16.3)
[2023-08-29 10:15] LABS: ANISOCYTOSIS 1+; EOSINOPHILS % (MANUAL) 1 % (0-8); LYMPHOCYTES % (MANUAL) 5 % (20-40); MONOCYTES % (MANUAL) 4 % (2-10); NEUTROPHILS % (MANUAL) 90 % (42-75); PLATELET ESTIMATE ADEQUATE
[2023-08-29 10:16] LABS: HYPOCHROMASIA 1+
[2023-08-29 10:17] LABS: OVALOCYTES OCC
[2023-08-30] VITALS (16 sets, daily range): BP systolic 90–137; BP diastolic 46–77; TEMP 97.2–98.3; O2SAT 95–100
[2023-08-31] VITALS (10 sets, daily range): BP systolic 99–108; BP diastolic 57–65; TEMP 97.8–98.3; O2SAT 96–100
[2023-08-31 07:01] LABS: BASOPHILS # (AUTO) 0.1 K/UL (0.0-0.2); BASOPHILS % (AUTO) 0.9 % (0.0-2.0); EOSINOPHILS % (AUTO) 0.4 % (0.0-7.0); HEMATOCRIT 23.1 % (36.7-47.1); HEMOGLOBIN 7.7 g/dL (12.5-16.3); LYMPHOCYTES # (AUTO) 1.2 K/uL (0.8-4.8); LYMPHOCYTES % (AUTO) 9.6 % (20.5-51.5); MEAN CORPUSCULAR HEMOGLOBIN 26.7 uug (23.8-33.4); MEAN CORPUSCULAR HGB CONC 33 g/dL (32.5-36.3); MEAN CORPUSCULAR VOLUME 80.2 fL (73.0-96.2); MONOCYTES # (AUTO) 0.5 K/uL (0.1-1.30); NEUTROPHILS # (AUTO) 10.5 K/uL (1.8-8.9); NEUTROPHILS % (AUTO) 85.1 % (38.5-71.5); PLATELET COUNT (AUTO) 363 K/uL (152-348); RED BLOOD CELL COUNT(AUTO) 2.87 MIL/uL (4.06-5.63); RED CELL DISTRIBUTION WIDTH 17.9 % (12.1-16.2); WHITE BLOOD COUNT (AUTO) 12.3 K/uL (3.6-10.2)
[2023-08-31 07:04] LABS: DIFFERENTIAL COMMENT 1
[2023-08-31 07:13] LABS: ALKALINE PHOSPHATASE 117 U/L (50-136); ASPARTATE AMINOTRANSFERASE 8 U/L (15-37); BILIRUBIN,TOTAL 0.5 mg/dL (0.2-1.0); CALCIUM 8.5 mg/dL (8.5-10.1); CARBON DIOXIDE 33 mmol/L (21-32); CHLORIDE 102 mmol/L (98-107); CREATININE 3.1 mg/dL (0.6-1.3); GLUCOSE 185 mg/dL (74-106); POTASSIUM 3.6 mmol/L (3.5-5.1); SODIUM SERUM 139 mmol/L (136-145); TOTAL PROTEIN, SERUM 6.2 g/dL (6.4-8.2); UREA NITROGEN, BLOOD 62 mg/dL (7-18)
[2023-08-31 07:18] LABS: MAGNESIUM 2.5 mg/dL (1.8-2.4); PHOSPHOROUS 1.8 mg/dL (2.5-4.9)
[2023-08-31 07:53] LABS: ALANINE AMINOTRANSFERASE < 6 U/L (16-63); ALBUMIN 1.3 g/dL (3.4-5.0)
[2023-09-01] VITALS (17 sets, daily range): BP systolic 93–111; BP diastolic 55–59; TEMP 97.1–98.9; O2SAT 89–100
[2023-09-01 05:59] LABS: ABG BASE EXCESS 3.3 mmol/L (-2.0-2.0); ABG HCO3 29.5 mmol/L (22.0-26.0); ABG PCO2 51.7 mmHg (35.0-48.0); ABG PH 7.374 (7.340-7.440); ABG PO2 167.8 mmHg (75.0-100.0); ABG SITE LEFT BRACHIAL; ABG TOTAL HEMOGLOBIN 12.8 G/dL (14.0-18.0); AaDO2 99.1 mmHg; COHb 0.7 % (0.0-3.9); MetHb 0.3 % (0.0-1.5); O2Hb 98.3 % (94.0-97.0)
[2023-09-01 06:10] LABS: BASOPHILS # (AUTO) 0.1 K/UL (0.0-0.2); BASOPHILS % (AUTO) 0.6 % (0.0-2.0); EOSINOPHILS # (AUTO) 0.1 K/uL (0.0-0.7); EOSINOPHILS % (AUTO) 0.8 % (0.0-7.0); HEMATOCRIT 26.9 % (36.7-47.1); HEMOGLOBIN 8.8 g/dL (12.5-16.3); LYMPHOCYTES % (AUTO) 21.5 % (20.5-51.5); MEAN CORPUSCULAR HEMOGLOBIN 26.6 uug (23.8-33.4); MEAN CORPUSCULAR HGB CONC 33 g/dL (32.5-36.3); MEAN CORPUSCULAR VOLUME 81.6 fL (73.0-96.2); MONOCYTES # (AUTO) 0.6 K/uL (0.1-1.30); MONOCYTES % (AUTO) 4.3 % (0.0-11.0); NEUTROPHILS # (AUTO) 10.2 K/uL (1.8-8.9); NEUTROPHILS % (AUTO) 72.8 % (38.5-71.5); PLATELET COUNT (AUTO) 468 K/uL (152-348); RED CELL DISTRIBUTION WIDTH 17.8 % (12.1-16.2)
[2023-09-01 06:20] LABS: DIFFERENTIAL COMMENT 1
[2023-09-01 06:24] LABS: CALCIUM 9.1 mg/dL (8.5-10.1); CARBON DIOXIDE 33 mmol/L (21-32); CHLORIDE 100 mmol/L (98-107); CREATININE 3.5 mg/dL (0.6-1.3); GLUCOSE 148 mg/dL (74-106); POTASSIUM 4.3 mmol/L (3.5-5.1); SODIUM SERUM 138 mmol/L (136-145); UREA NITROGEN, BLOOD 73 mg/dL (7-18)
[2023-09-01] MEDS ORDERED: IPRATROPIUM BROMIDE 0.5 MG/2.5 ML NEBU ONE (23:05)
[2023-09-02] VITALS (16 sets, daily range): BP systolic 99–127; BP diastolic 55–79; TEMP 97.7–98.8; O2SAT 97–100
[2023-09-02 06:55] LABS: BASOPHILS # (AUTO) 0.1 K/UL (0.0-0.2); BASOPHILS % (AUTO) 0.4 % (0.0-2.0); EOSINOPHILS # (AUTO) 0.1 K/uL (0.0-0.7); EOSINOPHILS % (AUTO) 0.5 % (0.0-7.0); HEMATOCRIT 25.8 % (36.7-47.1); HEMOGLOBIN 8.4 g/dL (12.5-16.3); LYMPHOCYTES # (AUTO) 1.5 K/uL (0.8-4.8); LYMPHOCYTES % (AUTO) 11.7 % (20.5-51.5); MEAN CORPUSCULAR HEMOGLOBIN 26.8 uug (23.8-33.4); MEAN CORPUSCULAR HGB CONC 33 g/dL (32.5-36.3); MEAN CORPUSCULAR VOLUME 82.1 fL (73.0-96.2); MONOCYTES # (AUTO) 0.7 K/uL (0.1-1.30); MONOCYTES % (AUTO) 5.6 % (0.0-11.0); NEUTROPHILS # (AUTO) 10.8 K/uL (1.8-8.9); NEUTROPHILS % (AUTO) 81.8 % (38.5-71.5); PLATELET COUNT (AUTO) 443 K/uL (152-348); RED BLOOD CELL COUNT(AUTO) 3.14 MIL/uL (4.06-5.63); WHITE BLOOD COUNT (AUTO) 13.2 K/uL (3.6-10.2)
[2023-09-02 07:14] LABS: CARBON DIOXIDE 32 mmol/L (21-32); CHLORIDE 100 mmol/L (98-107); CREATININE 3.2 mg/dL (0.6-1.3); GLUCOSE 171 mg/dL (74-106); MAGNESIUM 2.7 mg/dL (1.8-2.4); PHOSPHOROUS 2.4 mg/dL (2.5-4.9); POTASSIUM 3.8 mmol/L (3.5-5.1); SODIUM SERUM 139 mmol/L (136-145); UREA NITROGEN, BLOOD 62 mg/dL (7-18)
[2023-09-02 07:43] LABS: DIFFERENTIAL COMMENT 1
[2023-09-03] VITALS (12 sets, daily range): BP systolic 100–114; BP diastolic 57–62; TEMP 97.9–99.2; O2SAT 92–100
[2023-09-03 07:30] LABS: BASOPHILS # (AUTO) 0.1 K/UL (0.0-0.2); BASOPHILS % (AUTO) 0.5 % (0.0-2.0); EOSINOPHILS # (AUTO) 0.1 K/uL (0.0-0.7); EOSINOPHILS % (AUTO) 0.7 % (0.0-7.0); HEMATOCRIT 21.9 % (36.7-47.1); LYMPHOCYTES # (AUTO) 1.5 K/uL (0.8-4.8); LYMPHOCYTES % (AUTO) 11.5 % (20.5-51.5); MEAN CORPUSCULAR HEMOGLOBIN 26.4 uug (23.8-33.4); MEAN CORPUSCULAR HGB CONC 33 g/dL (32.5-36.3); MEAN CORPUSCULAR VOLUME 81.3 fL (73.0-96.2); MONOCYTES # (AUTO) 0.6 K/uL (0.1-1.30); MONOCYTES % (AUTO) 4.4 % (0.0-11.0); NEUTROPHILS % (AUTO) 82.9 % (38.5-71.5); PLATELET COUNT (AUTO) 443 K/uL (152-348); RED BLOOD CELL COUNT(AUTO) 2.69 MIL/uL (4.06-5.63); RED CELL DISTRIBUTION WIDTH 17.6 % (12.1-16.2); WHITE BLOOD COUNT (AUTO) 13.3 K/uL (3.6-10.2)
[2023-09-03 07:40] LABS: DIFFERENTIAL COMMENT 1; HEMOGLOBIN 7.1 g/dL (12.5-16.3)
[2023-09-03 07:54] LABS: CALCIUM 9.2 mg/dL (8.5-10.1); CARBON DIOXIDE 30 mmol/L (21-32); CHLORIDE 98 mmol/L (98-107); CREATININE 3.5 mg/dL (0.6-1.3); GLUCOSE 177 mg/dL (74-106); MAGNESIUM 2.9 mg/dL (1.8-2.4); PHOSPHOROUS 2.5 mg/dL (2.5-4.9); POTASSIUM 3.6 mmol/L (3.5-5.1); SODIUM SERUM 137 mmol/L (136-145); UREA NITROGEN, BLOOD 75 mg/dL (7-18)
[2023-09-04] VITALS (15 sets, daily range): BP systolic 96–112; BP diastolic 54–65; TEMP 97.6–99; O2SAT 92–99
[2023-09-04 14:42] LABS: HEMATOCRIT 21.3 % (36.7-47.1)
[2023-09-04 14:48] LABS: HEMOGLOBIN 7.1 g/dL (12.5-16.3)
[2023-09-05] VITALS (14 sets, daily range): BP systolic 93–108; BP diastolic 53–60; TEMP 97.4–98.8; O2SAT 96–100
[2023-09-05 07:27] LABS: BASOPHILS # (AUTO) 0.1 K/UL (0.0-0.2); BASOPHILS % (AUTO) 0.6 % (0.0-2.0); EOSINOPHILS # (AUTO) 0.1 K/uL (0.0-0.7); EOSINOPHILS % (AUTO) 1.2 % (0.0-7.0); HEMATOCRIT 21.1 % (36.7-47.1); LYMPHOCYTES # (AUTO) 1.6 K/uL (0.8-4.8); LYMPHOCYTES % (AUTO) 14.1 % (20.5-51.5); MEAN CORPUSCULAR HEMOGLOBIN 26.6 uug (23.8-33.4); MEAN CORPUSCULAR HGB CONC 33 g/dL (32.5-36.3); MONOCYTES # (AUTO) 0.7 K/uL (0.1-1.30); MONOCYTES % (AUTO) 5.8 % (0.0-11.0); NEUTROPHILS # (AUTO) 9.1 K/uL (1.8-8.9); NEUTROPHILS % (AUTO) 78.3 % (38.5-71.5); PLATELET COUNT (AUTO) 443 K/uL (152-348); RED BLOOD CELL COUNT(AUTO) 2.64 MIL/uL (4.06-5.63); RED CELL DISTRIBUTION WIDTH 18.1 % (12.1-16.2); WHITE BLOOD COUNT (AUTO) 11.6 K/uL (3.6-10.2)
[2023-09-05 07:32] LABS: DIFFERENTIAL COMMENT 1
[2023-09-05 07:39] LABS: CALCIUM 8.7 mg/dL (8.5-10.1); CARBON DIOXIDE 31 mmol/L (21-32); CHLORIDE 98 mmol/L (98-107); CREATININE 3.5 mg/dL (0.6-1.3); GLUCOSE 178 mg/dL (74-106); MAGNESIUM 2.8 mg/dL (1.8-2.4); PHOSPHOROUS 2.5 mg/dL (2.5-4.9); POTASSIUM 3.6 mmol/L (3.5-5.1); SODIUM SERUM 135 mmol/L (136-145)
[2023-09-05 07:40] LABS: UREA NITROGEN, BLOOD 80 mg/dL (7-18)
[2023-09-06] VITALS (20 sets, daily range): BP systolic 94–108; BP diastolic 48–61; TEMP 97–98.9; O2SAT 90–100
[2023-09-06 07:35] LABS: BASOPHILS # (AUTO) 0.1 K/UL (0.0-0.2); BASOPHILS % (AUTO) 0.8 % (0.0-2.0); EOSINOPHILS # (AUTO) 0.1 K/uL (0.0-0.7); EOSINOPHILS % (AUTO) 0.9 % (0.0-7.0); LYMPHOCYTES # (AUTO) 1.5 K/uL (0.8-4.8); LYMPHOCYTES % (AUTO) 14.2 % (20.5-51.5); MEAN CORPUSCULAR HEMOGLOBIN 27.3 uug (23.8-33.4); MEAN CORPUSCULAR HGB CONC 34 g/dL (32.5-36.3); MEAN CORPUSCULAR VOLUME 79.4 fL (73.0-96.2); MONOCYTES # (AUTO) 0.6 K/uL (0.1-1.30); MONOCYTES % (AUTO) 5.7 % (0.0-11.0); NEUTROPHILS # (AUTO) 8.2 K/uL (1.8-8.9); NEUTROPHILS % (AUTO) 78.4 % (38.5-71.5); PLATELET COUNT (AUTO) 427 K/uL (152-348); RED BLOOD CELL COUNT(AUTO) 2.51 MIL/uL (4.06-5.63); RED CELL DISTRIBUTION WIDTH 18.2 % (12.1-16.2); WHITE BLOOD COUNT (AUTO) 10.5 K/uL (3.6-10.2)
[2023-09-06 07:46] LABS: DIFFERENTIAL COMMENT 1
[2023-09-06 07:48] LABS: CALCIUM 8.4 mg/dL (8.5-10.1); CARBON DIOXIDE 31 mmol/L (21-32); CHLORIDE 99 mmol/L (98-107); CREATININE 2.6 mg/dL (0.6-1.3); GLUCOSE 122 mg/dL (74-106); MAGNESIUM 2.4 mg/dL (1.8-2.4); PHOSPHOROUS 2.1 mg/dL (2.5-4.9); POTASSIUM 3.6 mmol/L (3.5-5.1); SODIUM SERUM 136 mmol/L (136-145); UREA NITROGEN, BLOOD 55 mg/dL (7-18)
[2023-09-06 07:49] LABS: HEMATOCRIT 19.9 % (36.7-47.1); HEMOGLOBIN 6.8 g/dL (12.5-16.3)
[2023-09-06 09:02] LABS: EOSINOPHILS % (MANUAL) 1 % (0-8); LYMPHOCYTES % (MANUAL) 16 % (20-40); MONOCYTES % (MANUAL) 6 % (2-10); NEUTROPHILS % (MANUAL) 77 % (42-75); PLATELET ESTIMATE INCREASED
[2023-09-06 09:03] LABS: ANISOCYTOSIS 2+
[2023-09-06] MEDS ORDERED: IPRATROPIUM BROMIDE 0.5 MG/2.5 ML NEBU ONE (23:25)
[2023-09-07] VITALS (15 sets, daily range): BP systolic 94–112; BP diastolic 49–67; TEMP 97.7–98.1; O2SAT 86–99
[2023-09-07 09:48] LABS: BASOPHILS # (AUTO) 0.1 K/UL (0.0-0.2); BASOPHILS % (AUTO) 0.7 % (0.0-2.0); EOSINOPHILS # (AUTO) 0.1 K/uL (0.0-0.7); HEMOGLOBIN 8.3 g/dL (12.5-16.3); LYMPHOCYTES # (AUTO) 1.6 K/uL (0.8-4.8); MEAN CORPUSCULAR HEMOGLOBIN 26.4 uug (23.8-33.4); MEAN CORPUSCULAR HGB CONC 33 g/dL (32.5-36.3); MEAN CORPUSCULAR VOLUME 79.4 fL (73.0-96.2); MONOCYTES # (AUTO) 0.8 K/uL (0.1-1.30); MONOCYTES % (AUTO) 6.6 % (0.0-11.0); NEUTROPHILS # (AUTO) 9.1 K/uL (1.8-8.9); NEUTROPHILS % (AUTO) 77.7 % (38.5-71.5); PLATELET COUNT (AUTO) 485 K/uL (152-348); RED BLOOD CELL COUNT(AUTO) 3.14 MIL/uL (4.06-5.63); RED CELL DISTRIBUTION WIDTH 17.8 % (12.1-16.2); WHITE BLOOD COUNT (AUTO) 11.7 K/uL (3.6-10.2)
[2023-09-07 09:53] LABS: DIFFERENTIAL COMMENT 1
[2023-09-07 10:02] LABS: CALCIUM 9.1 mg/dL (8.5-10.1); CARBON DIOXIDE 31 mmol/L (21-32); CHLORIDE 98 mmol/L (98-107); CREATININE 3.3 mg/dL (0.6-1.3); GLUCOSE 147 mg/dL (74-106); POTASSIUM 3.9 mmol/L (3.5-5.1); SODIUM SERUM 135 mmol/L (136-145)
[2023-09-07 10:04] LABS: UREA NITROGEN, BLOOD 84 mg/dL (7-18)
[2023-09-07 10:08] LABS: ALANINE AMINOTRANSFERASE 11 U/L (16-63); ALKALINE PHOSPHATASE 112 U/L (50-136); ASPARTATE AMINOTRANSFERASE 13 U/L (15-37); BILIRUBIN,TOTAL 0.7 mg/dL (0.2-1.0); MAGNESIUM 2.6 mg/dL (1.8-2.4); TOTAL PROTEIN, SERUM 6.4 g/dL (6.4-8.2)
[2023-09-07 10:17] LABS: ALBUMIN 1.5 g/dL (3.4-5.0)
[2023-09-07] MEDS: CADEXOMER IODINE 40 GM TUBE TOP SCH (13:00)
[2023-09-08] VITALS (7 sets, daily range): BP systolic 98–117; BP diastolic 54–65; TEMP 97.4–98.7; O2SAT 97–99
[2023-09-08 06:37] LABS: BASOPHILS # (AUTO) 0.1 K/UL (0.0-0.2); BASOPHILS % (AUTO) 0.7 % (0.0-2.0); EOSINOPHILS # (AUTO) 0.1 K/uL (0.0-0.7); EOSINOPHILS % (AUTO) 1.1 % (0.0-7.0); HEMATOCRIT 25.5 % (36.7-47.1); HEMOGLOBIN 8.4 g/dL (12.5-16.3); LYMPHOCYTES # (AUTO) 1.9 K/uL (0.8-4.8); LYMPHOCYTES % (AUTO) 17.6 % (20.5-51.5); MEAN CORPUSCULAR HEMOGLOBIN 26.5 uug (23.8-33.4); MEAN CORPUSCULAR HGB CONC 33 g/dL (32.5-36.3); MEAN CORPUSCULAR VOLUME 80.4 fL (73.0-96.2); MONOCYTES # (AUTO) 0.6 K/uL (0.1-1.30); MONOCYTES % (AUTO) 5.5 % (0.0-11.0); NEUTROPHILS # (AUTO) 8.2 K/uL (1.8-8.9); NEUTROPHILS % (AUTO) 75.1 % (38.5-71.5); PLATELET COUNT (AUTO) 438 K/uL (152-348); RED BLOOD CELL COUNT(AUTO) 3.17 MIL/uL (4.06-5.63); RED CELL DISTRIBUTION WIDTH 17.4 % (12.1-16.2)
[2023-09-08 06:45] LABS: DIFFERENTIAL COMMENT 1
[2023-09-08 07:02] LABS: CALCIUM 8.8 mg/dL (8.5-10.1); CARBON DIOXIDE 31 mmol/L (21-32); CHLORIDE 98 mmol/L (98-107); CREATININE 2.6 mg/dL (0.6-1.3); GLUCOSE 133 mg/dL (74-106); MAGNESIUM 2.5 mg/dL (1.8-2.4); PHOSPHOROUS 2.6 mg/dL (2.5-4.9); POTASSIUM 3.5 mmol/L (3.5-5.1); SODIUM SERUM 137 mmol/L (136-145); UREA NITROGEN, BLOOD 77 mg/dL (7-18)
[2023-09-08] MEDS: LIDOCAINE 1%-EPI 1:200,000 MPF 30 ML VIAL IJ ONE (14:20)
[2023-09-08] MEDS: CELLULOSE,OXIDIZED 4X8 MC ONE (14:21)
[2023-09-08] MEDS: SILVER NITRATE APPLICATOR STICK EACH TP ONE (14:21)
[2023-09-09] VITALS (8 sets, daily range): BP systolic 101–126; BP diastolic 56–80; TEMP 97.5–99.1; O2SAT 96–100
[2023-09-09 07:33] LABS: BASOPHILS # (AUTO) 0.1 K/UL (0.0-0.2); BASOPHILS % (AUTO) 0.6 % (0.0-2.0); EOSINOPHILS # (AUTO) 0.1 K/uL (0.0-0.7); EOSINOPHILS % (AUTO) 0.9 % (0.0-7.0); HEMATOCRIT 23.5 % (36.7-47.1); HEMOGLOBIN 7.9 g/dL (12.5-16.3); LYMPHOCYTES # (AUTO) 1.6 K/uL (0.8-4.8); LYMPHOCYTES % (AUTO) 12.3 % (20.5-51.5); MEAN CORPUSCULAR HEMOGLOBIN 27.1 uug (23.8-33.4); MEAN CORPUSCULAR HGB CONC 34 g/dL (32.5-36.3); MEAN CORPUSCULAR VOLUME 80.2 fL (73.0-96.2); MONOCYTES # (AUTO) 0.8 K/uL (0.1-1.30); MONOCYTES % (AUTO) 6.2 % (0.0-11.0); NEUTROPHILS # (AUTO) 10.7 K/uL (1.8-8.9); PLATELET COUNT (AUTO) 471 K/uL (152-348); RED BLOOD CELL COUNT(AUTO) 2.93 MIL/uL (4.06-5.63); RED CELL DISTRIBUTION WIDTH 17.7 % (12.1-16.2); WHITE BLOOD COUNT (AUTO) 13.4 K/uL (3.6-10.2)
[2023-09-09 07:51] LABS: DIFFERENTIAL COMMENT 1
[2023-09-09 07:56] LABS: CALCIUM 9.1 mg/dL (8.5-10.1); CARBON DIOXIDE 31 mmol/L (21-32); CHLORIDE 98 mmol/L (98-107); CREATININE 3.1 mg/dL (0.6-1.3); GLUCOSE 185 mg/dL (74-106); POTASSIUM 3.8 mmol/L (3.5-5.1); SODIUM SERUM 136 mmol/L (136-145)
[2023-09-09 08:08] LABS: UREA NITROGEN, BLOOD 95 mg/dL (7-18)
== END 2023-09-09 14:45 | DRG 853 ==
LOC: ER 19:02 → TRANSITION 07-07 01:00 → CCU 07-07 10:57 → TELE3 07-07 19:37 → TRANSITION 07-08 18:00 → CCU 07-10 19:15 → MEDSURG3 07-20 20:35 → TELE3 07-20 21:04 → CCU 07-24 00:45 → TELE-TD3 08-02 00:55 → TELE3 08-03 09:30 → MEDSURG3 08-10 09:15 → TELE3 08-19 00:18
PROVIDERS: ADMIT Nurse Practitioner Acute Care; ATTEND Internal Medicine
PROC: 5A1955Z Respiratory Ventilation, Greater than 96 Consecutive Hours (ICD-10-PCS; principal; 2023-07-08)
PROC: 0BH17EZ Insertion of Endotracheal Airway into Trachea, Via Natural or Artificial Opening (ICD-10-PCS; 2023-07-08)
PROC: 0D9670Z Drainage of Stomach with Drainage Device, Via Natural or Artificial Opening (ICD-10-PCS; 2023-07-08)
PROC: 0W993ZZ Drainage of Right Pleural Cavity, Percutaneous Approach (ICD-10-PCS; 2023-07-08)
PROC: 05HB33Z Insertion of Infusion Device into Right Basilic Vein, Percutaneous Approach (ICD-10-PCS; 2023-07-08)
PROC: 30233N1 Transfusion of Nonautologous Red Blood Cells into Peripheral Vein, Percutaneous Approach (ICD-10-PCS; 2023-07-09)
PROC: 02HV33Z Insertion of Infusion Device into Superior Vena Cava, Percutaneous Approach (ICD-10-PCS; 2023-07-12)
PROC: 0KBN0ZZ Excision of Right Hip Muscle, Open Approach (ICD-10-PCS; 2023-07-16)
PROC: 0KBP0ZZ Excision of Left Hip Muscle, Open Approach (ICD-10-PCS; 2023-07-16)
PROC: 0D20XUZ Change Feeding Device in Upper Intestinal Tract, External Approach (ICD-10-PCS; 2023-07-16)
PROC: 05HB33Z Insertion of Infusion Device into Right Basilic Vein, Percutaneous Approach (ICD-10-PCS; 2023-07-20)
PROC: 0KBV0ZZ Excision of Right Foot Muscle, Open Approach (ICD-10-PCS; 2023-07-21)
PROC: 06HY33Z Insertion of Infusion Device into Lower Vein, Percutaneous Approach (ICD-10-PCS; 2023-07-23)
PROC: 5A12012 Performance of Cardiac Output, Single, Manual (ICD-10-PCS; 2023-07-24)
PROC: 5A1935Z Respiratory Ventilation, Less than 24 Consecutive Hours (ICD-10-PCS; 2023-07-24)
PROC: 0BH17EZ Insertion of Endotracheal Airway into Trachea, Via Natural or Artificial Opening (ICD-10-PCS; 2023-07-24)
PROC: 5A1D70Z Performance of Urinary Filtration, Intermittent, Less than 6 Hours Per Day (ICD-10-PCS; 2023-07-24)
PROC: 02HV33Z Insertion of Infusion Device into Superior Vena Cava, Percutaneous Approach (ICD-10-PCS; 2023-07-25)
PROC: B548ZZA Ultrasonography of Superior Vena Cava, Guidance (ICD-10-PCS; 2023-07-25)
PROC: 0QB10ZZ Excision of Sacrum, Open Approach (ICD-10-PCS; 2023-07-30)
PROC: 0DH63UZ Insertion of Feeding Device into Stomach, Percutaneous Approach (ICD-10-PCS; 2023-08-03)
PROC: 0QB10ZZ Excision of Sacrum, Open Approach (ICD-10-PCS; 2023-08-06)
PROC: 0KBP0ZZ Excision of Left Hip Muscle, Open Approach (ICD-10-PCS; 2023-08-06)
PROC: 0JH63XZ Insertion of Tunneled Vascular Access Device into Chest Subcutaneous Tissue and Fascia, Percutaneous Approach (ICD-10-PCS; 2023-08-07)
PROC: 02HV33Z Insertion of Infusion Device into Superior Vena Cava, Percutaneous Approach (ICD-10-PCS; 2023-08-07)
PROC: B518ZZA Fluoroscopy of Superior Vena Cava, Guidance (ICD-10-PCS; 2023-08-07)
PROC: 0KBV0ZZ Excision of Right Foot Muscle, Open Approach (ICD-10-PCS; 2023-08-13)
PROC: 05HB33Z Insertion of Infusion Device into Right Basilic Vein, Percutaneous Approach (ICD-10-PCS; 2023-08-15)
PROC: 05HB33Z Insertion of Infusion Device into Right Basilic Vein, Percutaneous Approach (ICD-10-PCS; 2023-08-20)
DX: A41.81 Sepsis due to Enterococcus (principal); E43 Unspecified severe protein-calorie malnutrition; I21.A1 Myocardial infarction type 2; J96.21 Acute and chronic respiratory failure with hypoxia; I50.43 Acute on chronic combined systolic (congestive) and diastolic (congestive) heart failure; J69.0 Pneumonitis due to inhalation of food and vomit; L89.154 Pressure ulcer of sacral region, stage 4; R53.2 Functional quadriplegia; L89.614 Pressure ulcer of right heel, stage 4; N17.0 Acute kidney failure with tubular necrosis; I46.9 Cardiac arrest, cause unspecified; M46.28 Osteomyelitis of vertebra, sacral and sacrococcygeal region; K94.23 Gastrostomy malfunction; I13.0 Hypertensive heart and chronic kidney disease with heart failure and stage 1 through stage 4 chronic kidney disease, or unspecified chronic kidney disease; I82.432 Acute embolism and thrombosis of left popliteal vein; I82.442 Acute embolism and thrombosis of left tibial vein; I69.354 Hemiplegia and hemiparesis following cerebral infarction affecting left non-dominant side; E87.0 Hyperosmolality and hypernatremia; J91.8 Pleural effusion in other conditions classified elsewhere; B37.49 Other urogenital candidiasis; Z16.24 Resistance to multiple antibiotics; M86.8X7 Other osteomyelitis, ankle and foot; J98.11 Atelectasis; E87.1 Hypo-osmolality and hyponatremia; A04.72 Enterocolitis due to Clostridium difficile, not specified as recurrent; I48.92 Unspecified atrial flutter; E86.0 Dehydration; E87.6 Hypokalemia; E88.09 Other disorders of plasma-protein metabolism, not elsewhere classified; R33.9 Retention of urine, unspecified; N20.0 Calculus of kidney; R47.02 Dysphasia; T17.990A Other foreign object in respiratory tract, part unspecified in causing asphyxiation, initial encounter; Z66 Do not resuscitate; Z96.641 Presence of right artificial hip joint; Z99.81 Dependence on supplemental oxygen; I48.0 Paroxysmal atrial fibrillation; Z79.84 Long term (current) use of oral hypoglycemic drugs; M24.562 Contracture, left knee; M24.561 Contracture, right knee; Z74.01 Bed confinement status; L89.626 Pressure-induced deep tissue damage of left heel; Z87.11 Personal history of peptic ulcer disease; Z95.828 Presence of other vascular implants and grafts; Z22.322 Carrier or suspected carrier of Methicillin resistant Staphylococcus aureus; R13.10 Dysphagia, unspecified; E11.69 Type 2 diabetes mellitus with other specified complication; K29.70 Gastritis, unspecified, without bleeding; E11.22 Type 2 diabetes mellitus with diabetic chronic kidney disease; N18.9 Chronic kidney disease, unspecified; I25.5 Ischemic cardiomyopathy; E03.9 Hypothyroidism, unspecified; E78.5 Hyperlipidemia, unspecified; I25.10 Atherosclerotic heart disease of native coronary artery without angina pectoris
CPT/HCPCS: 32555; 36415; 36569; 36600; 70030-TC; 70450; 71045; 72192; 73630; 74018; 76604; 76770; 82803; 83550; 83605; 83615; 83690; 83735; 83986; 84100; 84132; 84155; 84300; 84443; 84478; 84484; 85018; 85025; 85610; 85651; 85730; 86140; 86704; 86705; 86706; 86803; 86850; 86900; 86901; 86920; 87040; 87077; 87340; 87350; 87536; 87806; 88108-TC; 88312-TC; 90937; 92950; 93005; 93307; 93880; 94002; 94003; 94640; 94760; 99082-TC; A4606; A4663; A6209; A6213; C9113; G0378; G0480; J0171; J0282; J0290; J0330; J0690; J0692; J0696; J1170; J1644; J1650; J1815; J1940; J1956; J2185; J2250; J2270; J2405; J2543; J2997; J3370; J3475; J3480; J3490; J3590; J7040; J7050; J7060; J7070; J7120; J8597; P9016; P9047; Q9963; Q9966